=== PATIENT | female | born 1985 | race Caucasian/White ===

== ENCOUNTER 2022-09-17 14:59 | Inpatient (IN) ==
--- NOTE | 2022-09-17 15:31 | Emergency Department Note ---
Impression & Plan Suicidal ideation, Autism, Cerebral palsy, Right sided weakness, S/P [employer] shunt ED Provider Note NAME: STEFFI SANTOS AGE: 36 SEX: F : 1985 ARRIVES VIA: Walk-In INFORMANT: [Patient][parents] ED PROVIDER(S): [Edgar Khalil MD] CHIEF COMPLAINT: Mental health evaluation HISTORY OF PRESENT ILLNESS: The patient is a 36-year-old female who has a history of autism, cerebral palsy, [employer] shunt and seizure. She wears CPAP. She is currently still living with her family and is very frustrated that she cannot get out on her own. She is mad at God because he cannot fix all of her issues. Patient has been taking her medications as prescribed. The patient presents today after being [place] [address]. She had walked out of her house with the intent to lay on the road to commit suicide. She admits to this intent. The patient is currently voluntary. She states that she has felt suicidal from time to time but this is the first episode ever trying to truly go through with self-harm. Recently, the patient decreased her Depakote from 5 tablets daily to 4. She did this to help with dizziness and it does seem to have helped with the dizziness. She recently had lab work at her doctor's office 5 days ago, this was essentially unremarkable. PMHx/PSHx: See Below SOCIAL HISTORY: See Below. PHYSICAL EXAM: GENERAL: Patient is in no acute distress. HEENT: No acute trauma, normocephalic atraumatic, mucous membranes moist, no nasal congestion. NECK: No stridor, no adenopathy, no meningismus, trachea is midline. LUNGS: Clear to auscultation bilaterally, no wheeze, no rhonchi, breath sounds equal. HEART: Without murmurs gallops or rubs, regular rate and rhythm. ABDOMEN: Soft, nontender, bowel sounds positive, no peritonitis. EXTREMITIES: No cyanosis or edema, full range of motion of all the joints without pain or difficulty. The patient does have a brace on her right leg. NEUROLOGIC: Oriented x 3, awake and alert, moves all extremities. SKIN: No rash, no jaundice, no diaphoresis. Psychiatric: Cooperative, currently voluntary, admits to suicidal ideation with a plan to be run over by a car. DIFFERENTIAL DIAGNOSIS: Psychosis, medication noncompliance, suicidality, depression, anxiety, thyroid disorder, electrolyte imbalance, among others. EMERGENCY DEPARTMENT COURSE/PROCEDURES: Prior/Outside records reviewed: Previous ED note. MEDICAL DECISION MAKING: There is no leukocytosis or worrisome anemia. There is a normal platelet count. No renal failure or significant electrolyte abnormality. No worrisome liver enzyme elevation. Urinalysis did not show findings of infection. Aspirin, Tylenol and alcohol levels were undetectable. COVID test returned negative. testing returned negative. Valproic acid level is therapeutic. The patient appeared to be in a euthyroid state. Urine tox shows benzos. The patient presents with suicidal ideation. She is voluntary. She has a plan to lay on the road and be struck by a car. The patient was felt medically clear, she was seen by psychiatry case management. Unfortunately, the patient meets criteria for psychiatric hospitalization but, because of her past history, her CPAP use, her need for care even to shower, she is not appropriate for a psychiatric facility. She has been declined by multiple psychiatric facilities, even our [facility] psychiatric floor. At this point, medical hospitalization was felt warranted with a psychiatric consult. This would be the best way to approach this delicate situation. I did speak with case management, I spoke with the patient and her family. The on-call hospitalist was consulted. DISPOSITION: Patient's presentation and history warrant admission with a psychiatric consult. Past Med/Surg History Medical History Anxiety Cerebral palsy Epilepsy FOCAL SEIZURES WEEKLY>ANXIETY INDUCED (FOLLOWS BY DR. 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 LEVELS Heartburn Hypertension Mood disorder OCD (obsessive compulsive disorder) Right sided weakness Sleep apnea CPAP Surgical History H/O wrist surgery RT (TENDON) History of brain shunt TO TREAT HYDOCECPHALUS>PLACED AT AGE 1 History of cholecystectomy History of esophagogastroduodenoscopy (EGD) History of hip surgery RT/LEFT History of orthopedic surgery RT/LEFT HEEL CORD LENGTHENING CORD [place] teeth removed Family History Other No family history of adverse response to anesthesia Social History Smoking Status: Never smoker Second Hand Exposure: No; Hx Alcohol Use: No Preferred Language: Frisian [employer] D[employer] Required: No Beliefs That Will Affect Care: Spiritism Spiritism Beliefs: CONGREGATION Current Living Situation: Family Current Living Situation Comment: WITH FAMILY Feels Safe at Home: No Gender Identity: Female Assistive Devices: Brace/Splint/Immobilizer and CPAP Allergies Allergies Allergy/AdvReac Type Severity Reaction Status Date / Time No Known Allergies Allergy Verified 05/26/21 08:43 Home Meds Home Medications Medication Instructions Recorded Confirmed lacosamide 100 mg tablet (Vimpat) 200 mg PO TIDM 03/01/18 05/26/21 pyridoxine (vitamin B6) 100 mg 100 mg PO QAM 03/01/18 05/26/21 tablet (Vitamin B-6) risperidone 1 mg tablet 0.5 mg PO QDL 03/01/18 05/26/21 risperidone 1 mg tablet 1 mg PO BID 03/01/18 05/26/21 zonisamide 100 mg capsule 100 mg PO AMHS 03/01/18 05/26/21 (Zonegran) divalproex 250 mg tablet,delayed 250 mg PO UD 04/02/20 05/26/21 release (Depakote) divalproex 500 mg tablet,delayed 500 mg PO QAM 04/02/20 05/26/21 release clobazam 10 mg tablet 5 mg PO QAM 04/03/20 05/26/21 multivitamin 1 tab PO QAM 04/03/20 05/26/21 ascorbic acid 1,000 1 ea PO QAM 05/17/21 05/26/21 ot-[id number] powder effervescent pack (Emergen-C) cetirizine 10 mg tablet (Zyrtec) 5 mg PO QAM 05/17/21 05/26/21 famotidine 20 mg tablet 20 mg PO BID 05/17/21 05/26/21 lisinopril 2.5 mg tablet 2.5 mg PO QAM 05/17/21 05/26/21 lorazepam 0.5 mg tablet 0.5 mg PO DAILY PRN Anxiety 05/17/21 05/26/21 norethindrone acetate 1 mg-ethinyl 1 tab PO QAM 04/05/22 04/14/22 estradiol 20 mcg tablet (Junel) Results & Data (ED) Vital Signs Vital Signs - 24 hr 09/17/22 15:06 Temperature 36.7 C Temperature Source Temporal Artery Scan Pulse Rate 90 Respiratory Rate 18 Respiratory Effort / Characteristics Non-Labored Respiratory Depth Normal Respiratory Pattern Regular Blood Pressure 145/90 H Blood Pressure Mean 108 Blood Pressure Position Sitting Pulse Oximetry 93 Oxygen Delivery Method Room Air Sepsis Recent Fever Within 48 Hours No Sepsis New/Unexplained Change in Mental Status No Sepsis Action Taken by Nursing No Action Required Home Medications Current Medication List: was personally reviewed by me Laboratory Data Attestation: I reviewed the patient's lab results. 09/17/22 15:30 09/17/22 15:30 Lab Results 09/17/22 09/17/22 09/17/22 Range/Units 15:30 15:30 15:30 WBC 4.46 L (4.8-10.8) K/ul RBC 4.21 (4.20-5.40) M/uL Hgb 13.8 (12.0-16.0) g/dl Hct 41.2 (37.0-47.0) % MCV 97.9 (80.0-100.0) fL MCH 32.8 (25.0-34.0) pg MCHC 33.5 (32.0-36.0) g/dL RDW Std Deviation 46.2 (36.4-46.3) fL RDW Coeff of Lulu 12.8 (11.5-14.5) % Plt Count 179 (130-400) K/uL MPV 11.8 (9.4-12.4) fL Immature Gran % (Auto) 0.2 % Neut % (Auto) 46.2 % Lymph % (Auto) 35.7 % Jenkins % (Auto) 17.0 % Eos % (Auto) 0.7 % Baso % (Auto) 0.2 % Neut # (Auto) 2.06 (1.40-6.50) K/uL Lymph # (Auto) 1.59 (1.2-3.4) K/uL Jenkins # (Auto) 0.76 H (0.11-0.59) K/uL Eos # (Auto) 0.03 (0-0.50) K/uL Baso # (Auto) 0.01 (0-0.2) K/uL Immature Gran # (Auto) 0.01 (0.01-0.20) K/uL Sodium 140 (136-145) mmol/L Potassium 3.9 (3.5-5.1) mmol/L Chloride 109 H (98-107) mmol/L Carbon Dioxide 25 (21-32) mmol/L Anion Gap 6 (3-11) BUN 15 (6-23) mg/dl Creatinine 1.02 (0.6-1.2) mg/dl Est Cr Clr Drug Dosing Not Reportable Est GFR ( Amer) 80.8 ml/min Est GFR (Non-Af Amer) 69.7 ml/min BUN/Creatinine Ratio 14.7 (10-20) Glucose 115 H (70-99(Fasting)) mg/dl Calcium 9.2 (8.6-10.3) mg/dl Total Bilirubin 0.2 (0.2-1.0) mg/dl AST 41 H (13-39) U/L ALT 38 (7-52) U/L Alkaline Phosphatase 52 (34-104) U/L Total Protein 7.5 (6.0-8.3) gm/dl Albumin 3.7 (3.4-5.0) gm/dl Globulin 3.8 (2.5-4.0) gm/dl Albumin/Globulin Ratio 1.0 (0.9-2) TSH 2.673 (0.300-4.500) uIu/ml HCG, Qual (Negative) Urine Color Urine Appearance (Clear) Urine pH (4.5-7.5) Ur Specific [place] (1.000-1.030) Urine Protein (Negative) Urine Glucose (UA) (Negative) Urine Ketones (Negative) Urine Blood (Negative) Urine Nitrite (Negative) Urine Bilirubin (Negative) Urine Urobilinogen (Negative) Ur Leukocyte Esterase (Negative) Salicylates (3.0-30) mg/dl Urine Opiates Screen (Neg) Ur Methadone, Qual (Neg) Acetaminophen (10-30) ug/ml Urine Barbiturates (Neg) Valproic Acid (50-100) mcg/ml Ur Phencyclidine (PCP) (Neg) U Amphetamin/Meth Scrn (Neg) MDMA (Ecstasy) Screen (Neg) U Benzodiazepines Scrn (Neg) Ur Cocaine Metabolite (Neg) U Marijuana (THC) Screen (Neg) Ethyl Alcohol mg/dL (<10.0) mg/dl SARS-CoV-2, RNA, NAAT (NEGATIVE) 09/17/22 09/17/22 09/17/22 Range/Units 15:30 15:30 15:30 WBC (4.8-10.8) K/ul RBC (4.20-5.40) M/uL Hgb (12.0-16.0) g/dl Hct (37.0-47.0) % MCV (80.0-100.0) fL MCH (25.0-34.0) pg MCHC (32.0-36.0) g/dL RDW Std Deviation (36.4-46.3) fL RDW Coeff of Lulu (11.5-14.5) % Plt Count (130-400) K/uL MPV (9.4-12.4) fL Immature Gran % (Auto) % Neut % (Auto) % Lymph % (Auto) % Jenkins % (Auto) % Eos % (Auto) % Baso % (Auto) % Neut # (Auto) (1.40-6.50) K/uL Lymph # (Auto) (1.2-3.4) K/uL Jenkins # (Auto) (0.11-0.59) K/uL Eos # (Auto) (0-0.50) K/uL Baso # (Auto) (0-0.2) K/uL Immature Gran # (Auto) (0.01-0.20) K/uL Sodium (136-145) mmol/L Potassium (3.5-5.1) mmol/L Chloride (98-107) mmol/L Carbon Dioxide (21-32) mmol/L Anion Gap (3-11) BUN (6-23) mg/dl Creatinine (0.6-1.2) mg/dl Est Cr Clr Drug Dosing Est GFR ( Amer) ml/min Est GFR (Non-Af Amer) ml/min BUN/Creatinine Ratio (10-20) Glucose (70-99(Fasting)) mg/dl Calcium (8.6-10.3) mg/dl Total Bilirubin (0.2-1.0) mg/dl AST (13-39) U/L ALT (7-52) U/L Alkaline Phosphatase (34-104) U/L Total Protein (6.0-8.3) gm/dl Albumin (3.4-5.0) gm/dl Globulin (2.5-4.0) gm/dl Albumin/Globulin Ratio (0.9-2) TSH (0.300-4.500) uIu/ml HCG, Qual Negative (Negative) Urine Color Urine Appearance (Clear) Urine pH (4.5-7.5) Ur Specific [place] (1.000-1.030) Urine Protein (Negative) Urine Glucose (UA) (Negative) Urine Ketones (Negative) Urine Blood (Negative) Urine Nitrite (Negative) Urine Bilirubin (Negative) Urine Urobilinogen (Negative) Ur Leukocyte Esterase (Negative) Salicylates < 3.0 L (3.0-30) mg/dl Urine Opiates Screen (Neg) Ur Methadone, Qual (Neg) Acetaminophen < 3 L (10-30) ug/ml Urine Barbiturates (Neg) Valproic Acid 80 (50-100) mcg/ml Ur Phencyclidine (PCP) (Neg) U Amphetamin/Meth Scrn (Neg) MDMA (Ecstasy) Screen (Neg) U Benzodiazepines Scrn (Neg) Ur Cocaine Metabolite (Neg) U Marijuana (THC) Screen (Neg) Ethyl Alcohol mg/dL < 10.0 (<10.0) mg/dl SARS-CoV-2, RNA, NAAT (NEGATIVE) 09/17/22 09/17/22 09/17/22 Range/Units 15:30 15:30 15:45 WBC (4.8-10.8) K/ul RBC (4.20-5.40) M/uL Hgb (12.0-16.0) g/dl Hct (37.0-47.0) % MCV (80.0-100.0) fL MCH (25.0-34.0) pg MCHC (32.0-36.0) g/dL RDW Std Deviation (36.4-46.3) fL RDW Coeff of Lulu (11.5-14.5) % Plt Count (130-400) K/uL MPV (9.4-12.4) fL Immature Gran % (Auto) % Neut % (Auto) % Lymph % (Auto) % Jenkins % (Auto) % Eos % (Auto) % Baso % (Auto) % Neut # (Auto) (1.40-6.50) K/uL Lymph # (Auto) (1.2-3.4) K/uL Jenkins # (Auto) (0.11-0.59) K/uL Eos # (Auto) (0-0.50) K/uL Baso # (Auto) (0-0.2) K/uL Immature Gran # (Auto) (0.01-0.20) K/uL Sodium (136-145) mmol/L Potassium (3.5-5.1) mmol/L Chloride (98-107) mmol/L Carbon Dioxide (21-32) mmol/L Anion Gap (3-11) BUN (6-23) mg/dl Creatinine (0.6-1.2) mg/dl Est Cr Clr Drug Dosing Est GFR ( Amer) ml/min Est GFR (Non-Af Amer) ml/min BUN/Creatinine Ratio (10-20) Glucose (70-99(Fasting)) mg/dl Calcium (8.6-10.3) mg/dl Total Bilirubin (0.2-1.0) mg/dl AST (13-39) U/L ALT (7-52) U/L Alkaline Phosphatase (34-104) U/L Total Protein (6.0-8.3) gm/dl Albumin (3.4-5.0) gm/dl Globulin (2.5-4.0) gm/dl Albumin/Globulin Ratio (0.9-2) TSH (0.300-4.500) uIu/ml HCG, Qual (Negative) Urine Color Yellow Urine Appearance Clear (Clear) Urine pH 7.0 (4.5-7.5) Ur Specific [place] 1.005 (1.000-1.030) Urine Protein Negative (Negative) Urine Glucose (UA) Negative (Negative) Urine Ketones Negative (Negative) Urine Blood Negative (Negative) Urine Nitrite Negative (Negative) Urine Bilirubin Negative (Negative) Urine Urobilinogen Negative (Negative) Ur Leukocyte Esterase Negative (Negative) Salicylates (3.0-30) mg/dl Urine Opiates Screen Neg (Neg) Ur Methadone, Qual Neg (Neg) Acetaminophen (10-30) ug/ml Urine Barbiturates Neg (Neg) Valproic Acid (50-100) mcg/ml Ur Phencyclidine (PCP) Neg (Neg) U Amphetamin/Meth Scrn Neg (Neg) MDMA (Ecstasy) Screen Neg (Neg) U Benzodiazepines Scrn Pos H (Neg) Ur Cocaine Metabolite Neg (Neg) U Marijuana (THC) Screen Neg (Neg) Ethyl Alcohol mg/dL (<10.0) mg/dl SARS-CoV-2, RNA, NAAT NEGATIVE (NEGATIVE) Discharge Plan Visit Data Chief Complaint: Mental Health Evaluation Stated Complaint: MENTAL HEALTH EVAL ED Provider: Edgar Khlail Discharge Problem: Suicidal ideation, Autism, Cerebral palsy, Right sided weakness, S/P [employer] shunt Patient Disposition: Admitted As Inpatient Condition: Good Forms Stand Alone Forms: [facility], Suicide Prevention Resources Prescriptions Prescriptions: No Action zonisamide [Zonegran] 100 mg Capsule 100 mg PO AMHS pyridoxine (vitamin B6) [Vitamin B-6] 100 mg Tablet 100 mg PO QAM risperidone 1 mg Tablet 1 mg PO BID risperidone 1 mg Tablet 0.5 mg PO QDL lacosamide [Vimpat] 100 mg Tablet 200 mg PO TIDM divalproex [Depakote] 250 mg tablet,delayed release (DR/EC) 250 mg PO UD Rx Instructions: take 250mg at noon and bedtime divalproex 500 mg tablet,delayed release (DR/EC) 500 mg PO QAM clobazam 10 mg tablet 5 mg PO QAM multivitamin Tablet 1 tab PO QAM cetirizine [Zyrtec] 10 mg Tablet 5 mg PO QAM famotidine 20 mg Tablet 20 mg PO BID lorazepam 0.5 mg Tablet 0.5 mg PO DAILY PRN (Reason: Anxiety) norethindrone ac-eth estradiol [03/03 (21)] 1-20 mg-mcg Tablet 1 tab PO QAM lisinopril 2.5 mg Tablet 2.5 mg PO QAM Emergen-C 1,000 mg Powder Effervescent In Packet 1 ea PO QAM Referrals Referrals: Candice Rasmussen DO [Primary Care Provider] - Cerebral palsy Qualifiers: Cerebral palsy type: unspecified type Qualified Code(s): G80.9 - Cerebral palsy, unspecified
[2022-09-17 15:57] LABS: Appearance Urine Clear (Clear); Basophils # (auto) 0.01 K/uL (0-0.2); Basophils % (auto) 0.2 %; Bilirubin Urine Negative (Negative); Blood Urine Negative (Negative); Color Urine Yellow; Eosinophils # (auto) 0.03 K/uL (0-0.50); Eosinophils % (auto) 0.7 %; Glucose Urine UA Negative (Negative); Hematocrit (blood only) 41.2 % (37.0-47.0); Hemoglobin 13.8 g/dl (12.0-16.0); Immature Granulocytes # (auto) 0.01 K/uL (0.01-0.20); Immature Granulocytes % (auto) 0.2 %; Ketones Urine Negative (Negative); Leukocyte Esterase Urine Negative (Negative); Lymphocytes # (auto) 1.59 K/uL (1.2-3.4); Lymphocytes % (auto) 35.7 %; Mean Corpuscular Hemoglobin 32.8 pg (25.0-34.0); Mean Corpuscular Hgb Conc 33.5 g/dL (32.0-36.0); Mean Corpuscular Volume 97.9 fL (80.0-100.0); Mean Platelet Volume 11.8 fL (9.4-12.4); Monocytes # (auto) 0.76 K/uL (0.11-0.59); Neutrophils # (auto) 2.06 K/uL (1.40-6.50); Neutrophils % (auto) 46.2 %; Nitrite Urine Negative (Negative); Platelet Count 179 K/uL (130-400); Protein Urine Negative (Negative); RDW Coefficient of Variation 12.8 % (11.5-14.5); RDW Standard Deviation 46.2 fL (36.4-46.3); Red Blood Count 4.21 M/uL (4.20-5.40); Specific Gravity Urine 1.005 (1.000-1.030); Urobilinogen Urine Negative (Negative); White Blood Count 4.46 K/ul (4.8-10.8)
[2022-09-17 16:12] LABS: Acetaminophen < 3 ug/ml (10-30); Salicylate < 3.0 mg/dl (3.0-30)
[2022-09-17 16:16] LABS: Alanine Aminotransferase 38 U/L (7-52); Albumin Level 3.7 gm/dl (3.4-5.0); Alkaline Phosphatase 52 U/L (34-104); Anion Gap 6 (3-11); Aspartate Aminotransferase 41 U/L (13-39); BUN Creatinine Ratio 14.7 (10-20); Bilirubin,Total 0.2 mg/dl (0.2-1.0); Blood Urea Nitrogen 15 mg/dl (6-23); Calcium 9.2 mg/dl (8.6-10.3); Carbon Dioxide 25 mmol/L (21-32); Chloride 109 mmol/L (98-107); Est GFR (African American) 80.8 ml/min; Est GFR (Non-African American) 69.7 ml/min; Globulin 3.8 gm/dl (2.5-4.0); Glucose 115 mg/dl (70-99(Fasting)); Potassium 3.9 mmol/L (3.5-5.1); Sodium 140 mmol/L (136-145); Total Protein 7.5 gm/dl (6.0-8.3)
[2022-09-17 16:18] LABS: Pregnancy Test, Serum Negative (Negative)
[2022-09-17 16:21] LABS: Valproic Acid 80 mcg/ml (50-100)
[2022-09-17 17:09] LABS: Amphetamines+Metham, Urine Neg (Neg); Barbiturates, Urine Neg (Neg); Benzodiazepine, Urine Pos (Neg); Cocaine, Urine Neg (Neg); MDMA (Ecstacy), Urine Neg (Neg); Methadone, Urine Neg (Neg); Opiate, Urine Neg (Neg); Phencyclidine, Urine Neg (Neg)
--- NOTE | 2022-09-17 17:44 | History & Physical Report ---
Date of Service September 17, 2022 Assessment & Plan (1) Suicidal ideation: (2) Cerebral palsy: (3) Autism: (4) Mood disorder: (5) OCD (obsessive compulsive disorder): (6) Epilepsy: Plan This is a 36-year-old female who has a significant past medical history of spastic quadriplegic cerebral palsy, epilepsy, hydrocephalus with DOG BEAUTICIAN shunt presents, partial idiopathic focal epilepsy, mood disorder, depression, OCD, history of prolonged QT hyperprolactinemia who presents to ED secondary to suicidal ideation/attempt. Suicidal ideation -patient walked out to room 45 in an attempt to get run over by a car Mood disorder Depression with anxiety OCD Patient unable to be admitted to psychiatric facility due to underlying comorbidities therefore will admit to medicine Consult psychiatric services Patient follows Suzanne Johnson as OP, family requesting psych coordination of care with Dr. 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 Peoples, please see addendum History of Present Illness Chief Complaint: Suicidal ideation Primary Care Provider: Candice Rasmussen, This is a 36-year-old female who has a significant past medical history of spastic quadriplegic cerebral palsy, epilepsy, hydrocephalus with DOG BEAUTICIAN shunt presents, partial idiopathic focal epilepsy, mood disorder, depression, OCD, history of prolonged QT hyperprolactinemia who presents to ED secondary to suicidal ideation/attempt. Patient currently resides with her parents. Both parents are at bedside. In setting of mood disorder patient does have periods of tomasz and then periods of depression. She has never once attempted suicide, but has had sporadic dialogue regarding being suicidal. She follows with Dr. Sabrina Johnson of psychiatry through [facility]. Patient had a good night last night and a good morning. There was no signs of any depression or suicidal ideation. Father went to play golf and mother was sitting on the couch watching zoroastrian when patient decided to walk out the back door and [place] [address] Thankfully 2 ladies thought the situation was odd and brought her back to her house. Her mom realized that she was gone when the ladies brought her to the front door. Her intent was to go out on to [address], lay down and get run over by a car. She has never made an attempt like this before. Currently she does not feel like hurting herself or others at this time. She states that she wanted to end her life and have a, "God deal with all of her problems." She easily becomes very frustrated given her physical and mental challenges. She also is frustrated that she is unable to live independently. In ED patient remained hemodynamically stable. CBC, CMP, TSH a nd urinalysis was obtained. All was unremarkable except mild elevated glucose of 115 and AST of 41. Urine drug screen was positive for benzodiazepines. Due to patient's medical comorbidities she was deemed not a candidate for inpatient psych and therefore needed to be admitted to medical floor due to nursing needs. Allergies Allergy/AdvReac Type Severity Reaction Status Date / Time No Known Allergies Allergy Verified 05/26/21 08:43 Home Medications Medication Instructions Recorded Confirmed Type lacosamide 100 mg tablet (Vimpat) 200 mg PO AMHS 03/01/18 09/17/22 History risperidone 1 mg tablet 1 mg PO BID 03/01/18 09/17/22 History zonisamide 100 mg capsule 100 mg PO AMHS 03/01/18 09/17/22 History (Zonegran) divalproex 250 mg tablet,delayed 250 mg PO UD 04/02/20 09/17/22 History release (Depakote) divalproex 500 mg tablet,delayed 500 mg PO QAM 04/02/20 09/17/22 History release clobazam 10 mg tablet 5 mg PO BID 04/03/20 09/17/22 History multivitamin 1 tab PO QAM 04/03/20 09/17/22 History ascorbic acid 1,000 1 ea PO QAM 05/17/21 09/17/22 History kq-gwuyrgglpdam-fkpkowxc powder effervescent pack (Emergen-C) cetirizine 10 mg tablet (Zyrtec) 5 mg PO QAM PRN allergies 05/17/21 09/17/22 History famotidine 20 mg tablet 20 mg PO BID 05/17/21 09/17/22 History lorazepam 0.5 mg tablet 0.5 mg PO DAILY PRN Anxiety 05/17/21 09/17/22 History norethindrone acetate 1 mg-ethinyl 1 tab PO QAM 05/17/21 09/17/22 History estradiol 20 mcg tablet (Junel) clonazepam 0.5 mg tablet 0.5 mg PO BID 09/17/22 09/17/22 History duloxetine 60 mg capsule,delayed 60 mg PO DAILY 09/17/22 09/17/22 History release omeprazole 40 mg capsule,delayed 40 mg PO HS 09/17/22 09/17/22 History release Past Med/Surg History Medical History (Updated 09/17/22 @ 18:39 by Megan Busby PA-C) Anxiety Cerebral palsy Epilepsy FOCAL SEIZURES WEEKLY>ANXIETY INDUCED (FOLLOWS BY DR. GENEVIEVE RAMIREZ AT [facility]) Fusion of spine TO TREAT SCOLOSIS *DONE AT AGE 10 ? LEVELS Heartburn Hypertension Mood disorder OCD (obsessive compulsive disorder) Right sided weakness Sleep apnea CPAP Surgical History H/O wrist surgery RT (TENDON) History of brain shunt TO TREAT HYDOCECPHALUS>PLACED AT AGE 1 History of cholecystectomy History of esophagogastroduodenoscopy (EGD) History of hip surgery RT/LEFT History of orthopedic surgery RT/LEFT HEEL CORD LENGTHENING CORD [place] teeth removed Family History Other No family history of adverse response to anesthesia Social History Smoking Status: Never smoker Second Hand Exposure: No; Hx Alcohol Use: No Hx Substance Use: No Preferred Language: Swedish 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 Obstetrics Required: No Beliefs That Will Affect Care: None Current Living Situation: Parent Current Living Situation Comment: WITH FAMILY Feels Safe at Home: No Safety Concerns: Feels Safe At This Time Gender Identity: Female Assistive Devices: CPAP Review of Systems Review of Systems: All systems reviewed & are unremarkable except as noted in HPI & below Physical Exam Physical Exam: Constitutional: WD/WN, vitals as above, NAD, sitting up in bedside chair, rocking in chair, lip tremor, pleasant, conversing easily with occasional stutter Head: Normocephalic, Atraumatic Eyes: PERRL, conjunctivae normal, anicteric sclerae ENMT: external ear and nose normal, oropharynx normal Neck: trachea midline, no thyromegaly normal visual inspection Respiratory: normal respiratory effort, lungs clear to auscultation, no wheeze, rales, rhonchi. Normal insp/exp effort, no accessory muscle use Cardiovascular: RRR, no murmur, no edema Vessels: no JVD or carotid bruit Chest: normal inspection of chest Abdomen: normal bowel sounds, soft, nontender, no hepatosplenomegaly Musculoskeletal: no cyanosis or clubbing, active range of motion x4, ankle splint to right lower extremity Skin: no rashes, warm and dry normal turgor Neurologic: PERRL, EOMI, accommodation nl, no face palsy, no dysarthria CN's II-XI intact bilaterally and moves all extremities Psychiatric: A+Ox3, euthymic affect Lymphatic: no cervical or axillary lymphadenopathy : deferred Results & Data Results & Data Vital Signs (Past 12 Hours) Vital Signs Temp Pulse Resp BP Pulse Ox O2 Del Method 09/17/22 15:06 36.7 C 90 18 145/90 H 93 Room Air COVID-19 Results Results COVID-19 Adm Lab Results: RBC 4.21 M/uL (4.20-5.40) 09/17/22 WBC 4.46 K/ul (4.8-10.8) L 09/17/22 Hgb 13.8 g/dl (12.0-16.0) 09/17/22 Hct 41.2 % (37.0-47.0) 09/17/22 Plt Count 179 K/uL (130-400) 09/17/22 Neutrophils (%) (Auto) 46.2 % 09/17/22 Lymphocytes (%) (Auto) 35.7 % 09/17/22 Monocytes # (Auto) 0.76 K/uL (0.11-0.59) H 09/17/22 Eosinophils # (Auto) 0.03 K/uL (0-0.50) 09/17/22 Immature Granulocyte % (Auto) 0.2 % 09/17/22 Neutrophils # (Auto) 2.06 K/uL (1.40-6.50) 09/17/22 Lymphocytes # (Auto) 1.59 K/uL (1.2-3.4) 09/17/22 Monocytes # (Auto) 0.76 K/uL (0.11-0.59) H 09/17/22 Eosinophils # (Auto) 0.03 K/uL (0-0.50) 09/17/22 Basophils # (Auto) 0.01 K/uL (0-0.2) 09/17/22 Immature Granulocyte # (Auto) 0.01 K/uL (0.01-0.20) 3 Na 140 mmol/L (136-145) 09/17/22 K 3.9 mmol/L (3.5-5.1) 09/17/22 Cl 109 mmol/L (98-107) H 09/17/22 CO2 25 mmol/L (21-32) 09/17/22 Anion Gap 6 (3-11) 09/17/22 BUN 15 mg/dl (6-23) 09/17/22 Creatinine 1.02 mg/dl (0.6-1.2) 09/17/22 BUN/Creatinine Ratio 14.7 (10-20) 09/17/22 Glucose Level 115 mg/dl (70-99(Fasting)) H 09/17/22 Ca 9.2 mg/dl (8.6-10.3) 09/17/22 Total Bilirubin 0.2 mg/dl (0.2-1.0) 09/17/22 AST/SGOT 41 U/L (13-39) H 09/17/22 ALT/SGPT 38 U/L (7-52) 09/17/22 Alkaline Phosphatase 52 U/L (34-104) 09/17/22 Total Protein 7.5 gm/dl (6.0-8.3) 09/17/22 Albumin 3.7 gm/dl (3.4-5.0) 09/17/22 Globulin 3.8 gm/dl (2.5-4.0) 09/17/22 Albumin/Globulin Ratio 1.0 (0.9-2) 09/17/22 SARS-CoV-2, RNA, NAAT NEGATIVE (NEGATIVE) 09/17/22 Code Status & VTE Plan Code Status Full code Supervising Physician Co-Signing Physician Notes Pt seen and examined by myself, Marilu Peoples MD on the day of service. Care was coordinated with Megan Busby PA-C. Please refer to her note for additional information. 36yoF who is actively suicidal, admitted to the medical floor due to stable medical comorbidities noted above. Psychiatry following. Otherwise as above. (2) Cerebral palsy Cerebral palsy type: unspecified type Qualified Code(s): G80.9 - Cerebral palsy, unspecified
[2022-09-17] MEDS ORDERED: ACETAMINOPHEN 325 MG TAB PO PRN (20:19)
[2022-09-17] MEDS ORDERED: ONDANSETRON INJ 2 MG/ML 2 ML VIAL IV PRN (20:19)
[2022-09-17] MEDS ORDERED: LORazepam 0.5 MG TAB PO PRN (21:43)
[2022-09-17] MEDS ORDERED: hydrALAZINE HCL 20 MG/ML VIAL IV ONE (21:45)
[2022-09-17] MEDS ORDERED: cloNIDine HCL 0.1 MG TAB PO ONE (21:46)
[2022-09-17] MEDS: ENOXAPARIN INJ 40 MG/0.4 ML SYR SQ SCH (22:07)
[2022-09-17] MEDS: DIVALPROEX DELAY RELEASE 250 MG TABEC PO SCH (22:07)
[2022-09-17] MEDS: FAMOTIDINE 20 MG TAB PO SCH (22:09)
[2022-09-17] MEDS: ZONISAMIDE 100 MG CAPSULE PO SCH (22:09)
[2022-09-17] MEDS: risperiDONE 1 MG TABLET PO SCH (22:09)
[2022-09-17] MEDS: PANTOprazole 40 MG TAB PO SCH (22:09)
[2022-09-17] MEDS: LACOSAMIDE 50 MG TABLET PO SCH (22:30)
[2022-09-17] MEDS: clonazePAM 0.5 MG TAB PO SCH (22:30)
[2022-09-18 06:29] LABS: Hematocrit (blood only) 38.7 % (37.0-47.0); Hemoglobin 13.1 g/dl (12.0-16.0); Mean Corpuscular Hemoglobin 33.2 pg (25.0-34.0); Mean Corpuscular Hgb Conc 33.9 g/dL (32.0-36.0); Mean Platelet Volume 11.7 fL (9.4-12.4); Platelet Count 160 K/uL (130-400); RDW Coefficient of Variation 13.1 % (11.5-14.5); Red Blood Count 3.95 M/uL (4.20-5.40); White Blood Count 5.19 K/ul (4.8-10.8)
[2022-09-18 06:51] LABS: Albumin Level 3.4 gm/dl (3.4-5.0); BUN Creatinine Ratio 17.8 (10-20); Bilirubin,Total 0.3 mg/dl (0.2-1.0); Creatinine Clr Calc Pharmacy 82.8 ml/min; Est GFR (Non-African American) 81.1 ml/min; Globulin 3.4 gm/dl (2.5-4.0); Magnesium 2.1 mg/dl (1.7-2.4); Potassium 4.2 mmol/L (3.5-5.1); Total Protein 6.8 gm/dl (6.0-8.3)
[2022-09-18 08:06] LABS: Estimated Average Glucose 105 mg/dl; Hemoglobin A1C 5.3 % (4.5-5.6)
[2022-09-18] MEDS: risperiDONE 1 MG TABLET PO SCH ×2 (08:33→20:27)
[2022-09-18] MEDS: MULTIVITAMIN TAB PO SCH (08:33)
[2022-09-18] MEDS: DIVALPROEX DELAY RELEASE 500 MG TAB PO SCH (08:33)
[2022-09-18] MEDS: FAMOTIDINE 20 MG TAB PO SCH ×2 (08:33→20:28)
[2022-09-18] MEDS: DULoxetine HCL 60 MG CAP PO SCH (08:34)
[2022-09-18] MEDS: ZONISAMIDE 100 MG CAPSULE PO SCH ×2 (09:13→20:28)
[2022-09-18] MEDS: clonazePAM 0.5 MG TAB PO SCH ×2 (09:13→20:27)
[2022-09-18] MEDS: LACOSAMIDE 50 MG TABLET PO SCH ×2 (09:13→20:28)
[2022-09-18] MEDS ORDERED: POLYETHYLENE (MIRALAX) 17 GM PACK PO PRN (11:37)
--- NOTE | 2022-09-18 12:22 | Psychiatric Consultation ---
Date of Consultation September 18, 2022 Impression / Recommendations Impression Diagnostically consistent with likely depressive episode with increased irritability in context of BPAD, ASD with intellectual disability, and OCD. With exception of one odd belief about genie controlling her epilepsy no other symptoms of psychosis, suggests depressive episode in context of BPAD with added concrete and impulsive nature of emergence of SI likely from ASD. Her interrupted suicide attempt is concerning in that she gave no indication to her parents or other supports of her plan to leave the home to act on her thoughts and reports that her SI and plan came on quite impulsively. She continues to have some ambivalence about being alive which further emphasizes the importance of ongoing hospitalization for safety and stabilization as well as options for medication adjustments, possible additional outpatient resources and working to identify any additional contributing risk factors/modifiable risk factors. Ongoing challenge with lack of more intensive outpatient supports and housing resources remains significant contributing factor that will difficult to modify. She is certainly on a wide variety of both neurologic and psychiatric medications that can contribute to sedation with neurologic medications of Onfi and Klonopin likely to cause the most sedation. Her depakote was recently reduced slightly due to dizziness which may have lead to some increased irritability/mood changes. She is also on Cymbalta and risperidone. Discussed her history of prior medication trials and presentation over time with her outpatient psychiatrist Dr. Johnson for [address] Dr. Johnson recalls three prior trials to taper risperidone without success due to increased agitation/aggression or worsened mood changes as well as prior challenges with attempt to consolidate more of the dose in the evening. She has been on multiple other medications including [place] and Seroquel without success. Per Dr. Johnson discussion with her neurologist the recent EEG video monitoring did not show any epileptic events with Randi's sense of aura/mood changes suggesting likely component of anxiety and that they felt her epilepsy is currently well controlled but they did add Onfi and Klonopin in effort to reduce anxiety leading to distress and sense of possible seizures. (1) Depression with suicidal ideation: (2) Autism: (3) Cerebral palsy: Cerebral palsy type: unspecified type Qualified Code(s): G80.9 - Cerebral palsy, unspecified (4) S/P PRESIDING STEWARD shunt: (5) Epilepsy: (6) OCD (obsessive compulsive disorder): (7) Mood disorder: (8) Suicidal ideation: Plan -1-on-1 with suicide precautions -May not leave AMA, if attempt please call security and psych liason as would meet 302 criteria -Continue psychiatric medications as ordered for now, consider increasing Cymbalta beyond FDA max and/or adjusting Depakote -Discussed with family setting alarm system on doors/windows which they report is in place and will now be active 04/09 to reduce risk of Randi leaving the home without warning in the future -Could consider pastoral care consult, will discuss with her parents if they feel this could be beneficial vs worsening shinto preoccupation/feelings of being punished Psych History Identifying Data Olivia Galindo" is a 36 yo woman who lives with her parents in [place] with a history of bipolar affective disorder, OCD, ASD with intellectual disability, CP, focal epilepsy, history of hydrocephalus s/p PRESIDING STEWARD shunt, SHRUTHI on CPAP admitted medically for interrupted suicide attempt given medical/nursing complex needs. Psychiatry consulted for risk assessment and recommendations. Chief Complaint "I still don't want to be here". History of Present Illness Randi presented with her parents after impulsively walking out of her house yesterday in an attempt to get to the local highway [facility] where she planned to lie down in traffic in order to be hit and killed by a car. Luckily as she approached the [facility] a nearby logging truck driver felt something seemed off and intervened by stopping her before she got to the road and bringing her home. She left the house without altering her mother who was home and both Randi and her parents report none of them even realized she would be able to ambulate independently as far as she did given her CP and physical pain limitations. Today Randi is tired and drifts off to sleep intermittently but is cooperative with questions. She is joined bedside by her parents who are very involved in her care, have medical guardianship and whom she gives permission to be involved and get updates on her treatment/care. Randi reports the SI came on impulsively after she woke yesterday. Reports significant frustration that she always sleeps in and struggles to get up in the mornings which she attributes to her sedating medications. On waking she thought about possibly "picking myself open till I bled" but then ate breakfast and after eating continued to feel tired and "frustrated by this". She then had the idea to go outside and attempt to lie in traffic and left the house unnoticed still in her pajamas. Her parents are able to provide additional collateral including that they had a difficult meeting on regarding an update on possible outpatient support services which could eventually allow Randi to live independently in a nearby home with trained staff support. Unfortunately the meeting revealed long wait lists and discouraging news given Randi's hopes to have more independence. She frequently notes frustration with God and the government as she feels God could change her situation but doesn't and due to lack of financial funding/[facility] support services and resources. They note she also often gets to weekly groups and other activities late due to her fatigue and difficulty waking up in the morning. Randi adds that additional recent stressors are her frustration with her risperidone, which she feels causes the most sedation, and hopelessness that this medication will ever be able to discontinued. She also reports frustration with anxiety triggering seizures and states belief that a "genie causes the epilepsy". She recently had video EEG monitoring at [facility] for her seizures and some of her medications were adjusted. She follows in the outpatient setting with Dr. Johnson for psychiatry and also has a therapist through the [facility] psychology clinic who has been doing in home visits. She also has a case monitor through [facility]. [facility] is involved with [facility]. Past Psychiatric History History of Previous Suicide Attempt: No Allergies Allergy/AdvReac Type Severity Reaction Status Date / Time No Known Allergies Allergy Verified 05/26/21 08:43 Home Medications Medication Instructions Recorded Confirmed Type lacosamide 100 mg tablet (Vimpat) 200 mg PO AMHS 03/01/18 09/17/22 History risperidone 1 mg tablet 1 mg PO BID 03/01/18 09/17/22 History zonisamide 100 mg capsule 100 mg PO AMHS 03/01/18 09/17/22 History (Zonegran) divalproex 250 mg tablet,delayed 250 mg PO UD 04/02/20 09/17/22 History release (Depakote) divalproex 500 mg tablet,delayed 500 mg PO QAM 04/02/20 09/17/22 History release clobazam 10 mg tablet 5 mg PO BID 04/03/20 09/17/22 History multivitamin 1 tab PO QAM 04/03/20 09/17/22 History ascorbic acid 1,000 1 ea PO QAM 05/17/21 09/17/22 History hv-znessiyeronn-booikrym powder effervescent pack (Emergen-C) cetirizine 10 mg tablet (Zyrtec) 5 mg PO QAM PRN allergies 05/17/21 09/17/22 History famotidine 20 mg tablet 20 mg PO BID 05/17/21 09/17/22 History lorazepam 0.5 mg tablet 0.5 mg PO DAILY PRN Anxiety 05/17/21 09/17/22 History norethindrone acetate 1 mg-ethinyl 1 tab PO QAM 05/17/21 09/17/22 History estradiol 20 mcg tablet (Junel) clonazepam 0.5 mg tablet 0.5 mg PO BID 09/17/22 09/17/22 History duloxetine 60 mg capsule,delayed 60 mg PO DAILY 09/17/22 09/17/22 History release omeprazole 40 mg capsule,delayed 40 mg PO HS 09/17/22 09/17/22 History release Patient History Medical History Anxiety Cerebral palsy Epilepsy FOCAL SEIZURES WEEKLY>ANXIETY INDUCED (FOLLOWS BY DR. GENEVIEVE RAMIREZ AT [facility]) Fusion of spine TO TREAT SCOLOSIS *DONE AT AGE 10 ? LEVELS Heartburn Hypertension Mood disorder OCD (obsessive compulsive disorder) Right sided weakness Sleep apnea CPAP Surgical History H/O wrist surgery RT (TENDON) History of brain shunt TO TREAT HYDOCECPHALUS>PLACED AT AGE 1 History of cholecystectomy History of esophagogastroduodenoscopy (EGD) History of hip surgery RT/LEFT History of orthopedic surgery RT/LEFT HEEL CORD LENGTHENING CORD [place] teeth removed Family History Other No family history of adverse response to anesthesia Social History Smoking Status: Never smoker Second Hand Exposure: No; Hx Alcohol Use: No Hx Substance Use: No Preferred Language: Estonian Communication Ability: Effective Air Turning Machine Feeder Required: No Beliefs That Will Affect Care: None Current Living Situation: Parent Current Living Situation Comment: WITH FAMILY Feels Safe at Home: No Safety Concerns: Feels Safe At This Time Gender Identity: Female Assistive Devices: CPAP Physical Exam Psychiatric: Orientation: alert, oriented to person and oriented to place Apperance: appropriately dressed and appropriately groomed Eye Contact: + fair eye contact Motor Behavior: no abnormal motor movements Speech: normal rate/rhythm/volume of speech Affect: + constricted affect Mood: + depressed mood, + anxious mood and + irritable mood Thought Process: linear/logical thought process and + concrete thought process Thought Content: + preoccupation and + derealization (possible regarding belief of genie controlling epilepsy) Suicidal Thoughts: denies suicidal plan; + reports suicidal thoughts Homicidal Thoughts: denies homicidal thoughts Hallucinations: no auditory hallucinations and no visual hallucinations Cognition: recent memory grossly intact, remote memory grossly intact and attention grossly intact Insight: + limited insight Judgment: + limited judgement Vital Signs (Past 24 Hours): Last Vital Signs Temp 36.9 C 09/18/22 11:00 Pulse 69 09/18/22 11:00 Resp 18 09/18/22 11:00 BP 136/87 09/18/22 11:00 Pulse Ox 99 09/18/22 11:00 O2 Del Method CPAP 09/18/22 11:00 Review of Systems All systems reviewed & are unremarkable except as noted in HPI & below Results & Data (PSY) Laboratory Results Na+ 142 Depakote level 80 (not true trough) Medications Administered Clonazepam (Clonazepam 0.5 Mg Tab) 0.5 mg PO BID [facility] Stop: 10/17/22 21:44 Last Admin: 09/18/22 09:13 Dose: 0.5 mg Documented By: Admin: 09/17/22 22:30 Dose: 0.5 mg Documented By: KARLA Divalproex Sodium (Divalproex Delay Release 250 Mg Tabec) 250 mg PO BID@1200,2100 FAHEEM Stop: 10/17/22 21:44 Last Admin: 09/17/22 22:07 Dose: 250 mg Documented By: ASTRID Divalproex Sodium (Divalproex Delay Release 500 Mg Tab) 500 mg PO QAM FAHEEM Stop: 10/18/22 08:59 Last Admin: 09/18/22 08:33 Dose: 500 mg Documented By: SAROJ Duloxetine HCl (Duloxetine Hcl 60 Mg Cap) 60 mg PO DAILY FAHEEM Stop: 10/18/22 08:59 Last Admin: 09/18/22 08:34 Dose: 60 mg Documented By: SAROJ Enoxaparin Sodium (Enoxaparin Inj 40 Mg/0.4 Ml Syr) 40 mg SQ [facility] Stop: 10/17/22 20:59 Last Admin: 09/17/22 22:07 Dose: Not Given Documented By: ASTRID Famotidine (Famotidine 20 Mg Tab) 20 mg PO BID [facility] Stop: 10/17/22 21:44 Last Admin: 09/18/22 08:33 Dose: 20 mg Documented By: Admin: 09/17/22 22:09 Dose: 20 mg Documented By: ASTRID Lacosamide (Lacosamide 50 Mg Tablet) 200 mg PO [facility] Stop: 10/17/22 21:44 Last Admin: 09/18/22 09:13 Dose: 200 mg Documented By: Admin: 09/17/22 22:30 Dose: 200 mg Documented By: KARLA Multivitamins (Multivitamin Tab) 1 tab PO [facility] Stop: 10/18/22 08:59 Last Admin: 09/18/22 08:33 Dose: 1 tab Documented By: SAROJ Pantoprazole Sodium (Pantoprazole 40 Mg Tab) 40 mg PO [facility] Stop: 10/17/22 21:44 Last Admin: 09/17/22 22:09 Dose: 40 mg Documented By: ASTRID Risperidone (Risperidone 1 Mg Tablet) 1 mg PO BID [facility] Stop: 10/17/22 21:44 Last Admin: 09/18/22 08:33 Dose: 1 mg Documented By: Admin: 09/17/22 22:09 Dose: 1 mg Documented By: ASTRID Zonisamide (Zonisamide 100 Mg Capsule) 100 mg PO [facility] Stop: 10/17/22 21:44 Last Admin: 09/18/22 09:13 Dose: 100 mg Documented By: Admin: 09/17/22 22:09 Dose: 100 mg Documented By: ASTRID Coding Level of Care Code 64383 IN/OBS CONSULT LVL 5,80M Diagnoses Depression with suicidal ideation F32.A; R45.851 Autism F84.0 Cerebral palsy G80.9 Cerebral palsy type: unspecified type S/P PRESIDING STEWARD shunt Z98.2 Epilepsy G40.909 OCD (obsessive compulsive disorder) F42.9 Mood disorder F39 Suicidal ideation R45.851 Time Spent (min) 90
[2022-09-18] MEDS: DIVALPROEX DELAY RELEASE 250 MG TABEC PO SCH ×2 (13:01→20:27)
[2022-09-18] MEDS: PSYLLIUM or GUAR GUM FIBER POWDER PACKET PO SCH (13:01)
[2022-09-18] MEDS: CLOBAZAM 5 MG PO SCH ×2 (13:02→20:28)
--- NOTE | 2022-09-18 13:40 | Hospitalist Progress Note ---
Date of Service September 18, 2022 Assessment & Plan (1) Suicidal ideation: (2) Cerebral palsy: (3) Autism: (4) Mood disorder: (5) OCD (obsessive compulsive disorder): (6) Epilepsy: Plan Patient is a 36 yr female with H/O spastic quadriplegic cerebral palsy, epilepsy, hydrocephalus with ARTIFICIAL MARBLE WORKER shunt presents, partial idiopathic focal epilepsy, mood disorder, depression, OCD, history of prolonged QT hyperprolactinemia who presents to ED secondary to suicidal ideation/attempt. 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 Continue Depakote, Vimpat, clobazam, Zonegran Follows Salbador Villanueva, underwent continuous EEG monitoring in June for 6 days chronic, stable No recent seizur H/O Hydrocephalus S/P ARTIFICIAL MARBLE WORKER shunt SHRUTHI Continue CPAP at bedtime DVT Px: Lovenox SQ Code Status FULL CODE Admission and Anticipated Discharge Date Admission Date: September 17, 2022 Subjective Patient is seen and examined at bedside Admits to being depressed Sitter at bedside Denies any chest pain, dyspnea, dizziness, nausea, vomiting, abdominal pain Having lunch during my encounter No other complaints Review of Systems Review of Systems: All systems reviewed & are unremarkable except as noted in Subjective Physical Exam Physical Exam: Physical Exam: Vitals signs as noted above General Appearance:Moderately built and nourished, no apparent distress Head: normocephalic, Atraumatic Eyes: normal inspection, EOMI Neck: supple, Trachea midline Respiratory/Chest: Normal breath sounds, CTA, No accessory muscle use Cardiovascular: S1, S2, No murmur Abdomen/GI:Soft, Non tender, Bowel sounds present Extremities/Musculoskeletal:normal inspection, Trace edema Neurologic/Psych:AAOX3, grossly no focal neurological deficits, +Depression Skin: normal color, warm Results & Data Results & Data Vital Signs (Past 12 Hours) Vital Signs Temp Pulse Resp BP Pulse Ox O2 Del Method 09/18/22 11:00 36.9 C 69 18 136/87 99 CPAP 09/18/22 06:54 36.7 C 62 15 140/92 100 Room Air Laboratory Results Short CBC 09/17/22 09/18/22 Range/Units 15:30 06:11 WBC 4.46 L 5.19 (4.8-10.8) K/ul Hgb 13.8 13.1 (12.0-16.0) g/dl Hct 41.2 38.7 (37.0-47.0) % Plt Count 179 160 (130-400) K/uL BMP 09/17/22 09/18/22 15:30 06:11 Sodium 140 142 Potassium 3.9 4.2 Chloride 109 H 112 H Carbon Dioxide 25 26 BUN 15 16 Creatinine 1.02 0.90 Glucose 115 H 80 Calcium 9.2 9.0 Liver Function 09/17/22 09/18/22 Range/Units 15:30 06:11 Total Bilirubin 0.2 0.3 (0.2-1.0) mg/dl AST 41 H 34 (13-39) U/L ALT 38 33 (7-52) U/L Alkaline Phosphatase 52 44 (34-104) U/L Albumin 3.7 3.4 (3.4-5.0) gm/dl Urine 09/17/22 Range/Units 15:30 Urine Color Yellow Urine Appearance Clear (Clear) Urine pH 7.0 (4.5-7.5) Ur Specific Oakley 1.005 (1.000-1.030) Urine Protein Negative (Negative) Urine Glucose (UA) Negative (Negative) (2) Cerebral palsy Cerebral palsy type: unspecified type Qualified Code(s): G80.9 - Cerebral palsy, unspecified
[2022-09-18 20:22] LABS: Adenovirus F 40/41 PCR Not Detected (NotDetected); Astrovirus PCR Not Detected (NotDetected); Campylobacter PCR Not Detected (NotDetected); Cryptosporidium PCR Not Detected (NotDetected); Cyclospora cayetanensis PCR Not Detected (NotDetected); Entamoeba histolytica PCR Not Detected (NotDetected); Enteroaggregative E.coli(EAEC) Not Detected (NotDetected); Enteropathogenic E.coli (EPEC) Not Detected (NotDetected); Enterotoxigenic E.coli (ETEC) Not Detected (NotDetected); Giardia lamblia PCR Not Detected (NotDetected); Norovirus GI/GII PCR Not Detected (NotDetected); Plesiomonas shigelloides PCR Not Detected (NotDetected); Rotavirus A PCR Not Detected (NotDetected); Salmonella PCR Not Detected (NotDetected); Sapovirus PCR Not Detected (NotDetected); Shiga-like Toxin E.coli (STEC) Not Detected (NotDetected); Shigella/Enteroinvasive E.coli Not Detected (NotDetected); Vibrio cholerae PCR Not Detected (NotDetected); Vibrio species PCR Not Detected (NotDetected); Yersinia enterocolitica PCR Not Detected (NotDetected)
[2022-09-18] MEDS: ENOXAPARIN INJ 40 MG/0.4 ML SYR SQ SCH (20:28)
[2022-09-18] MEDS: PANTOprazole 40 MG TAB PO SCH (20:29)
[2022-09-18] MEDS: NEOMYCIN/POLYMYX/BACITR OINT 15 GM TUBE EXT SCH (22:36)
[2022-09-19 07:25] LABS: Hemoglobin 12.8 g/dl (12.0-16.0); Mean Corpuscular Hemoglobin 33.1 pg (25.0-34.0); Mean Corpuscular Hgb Conc 33.7 g/dL (32.0-36.0); Mean Corpuscular Volume 98.2 fL (80.0-100.0); Mean Platelet Volume 11.9 fL (9.4-12.4); Platelet Count 167 K/uL (130-400); RDW Coefficient of Variation 13.1 % (11.5-14.5); RDW Standard Deviation 46.9 fL (36.4-46.3); Red Blood Count 3.87 M/uL (4.20-5.40); White Blood Count 4.58 K/ul (4.8-10.8)
[2022-09-19 07:49] LABS: BUN Creatinine Ratio 17.8 (10-20); Calcium 8.8 mg/dl (8.6-10.3); Creatinine Clr Calc Pharmacy 82.8 ml/min; Est GFR (Non-African American) 81.1 ml/min
[2022-09-19] MEDS: ZONISAMIDE 100 MG CAPSULE PO SCH ×2 (09:23→20:37)
[2022-09-19] MEDS: DULoxetine HCL 60 MG CAP PO SCH (09:23)
[2022-09-19] MEDS: PSYLLIUM or GUAR GUM FIBER POWDER PACKET PO SCH (09:23)
[2022-09-19] MEDS: MULTIVITAMIN TAB PO SCH (09:23)
[2022-09-19] MEDS: FAMOTIDINE 20 MG TAB PO SCH ×2 (09:23→20:37)
[2022-09-19] MEDS: DIVALPROEX DELAY RELEASE 500 MG TAB PO SCH (09:23)
[2022-09-19] MEDS: LACOSAMIDE 50 MG TABLET PO SCH ×2 (09:24→20:37)
[2022-09-19] MEDS: risperiDONE 1 MG TABLET PO SCH ×2 (09:24→20:37)
[2022-09-19] MEDS: NEOMYCIN/POLYMYX/BACITR OINT 15 GM TUBE EXT SCH ×2 (09:24→20:37)
[2022-09-19] MEDS: CLOBAZAM 5 MG PO SCH ×2 (09:25→20:36)
[2022-09-19] MEDS: clonazePAM 0.5 MG TAB PO SCH ×2 (09:32→20:37)
[2022-09-19] MEDS: DIVALPROEX DELAY RELEASE 250 MG TABEC PO SCH ×2 (12:10→20:37)
--- NOTE | 2022-09-19 14:31 | Psychiatric Progress Note ---
Date of Service September 19, 2022 Impression / Recommendations Impression Diagnostically consistent with likely depressive episode with increased irritability in context of BPAD, ASD with intellectual disability, and OCD. With exception of one odd belief about genie controlling her epilepsy no other symptoms of psychosis, suggests depressive episode in context of BPAD with added concrete and impulsive nature of emergence of SI likely from ASD. Her interrupted suicide attempt is concerning in that she gave no indication to her parents or other supports of her plan to leave the home to act on her thoughts and reports that her SI and plan came on quite impulsively. She continues to almaraz ve some ambivalence about being alive which further emphasizes the importance of ongoing hospitalization for safety and stabilization as well as options for medication adjustments, possible additional outpatient resources and working to identify any additional contributing risk factors/modifiable risk factors. Ongoing challenge with lack of more intensive outpatient supports and housing resources remains significant contributing factor that will difficult to modify. 09/19/2022: Some improvement in mood today but still with concerns for possibility for another impulsive suicide attempt given lack of warning signs and her identifying lack of identifiable route to independent housing as biggest factor contributing to her SI. She is able to discuss sedating medications and ways to restructure beliefs about need for additional sleep and sleeping in as not necessarily negative in attempt to reduce frustration and self-blame related to this. She also has insight into impact of anxiety and OCD symptoms in contributing to her frustration at times. Reviewed with Randi and her parents recommendation to consider Depakote increase and/or duloxetine increase. Randi and her parents consent to increasing duloxetine to 90mg, above FDA max dose in effort to get further benefit for anxiety, mood and OCD symptoms which may in turn lead to need for less Klonopin/Onfin over time and ideally less ir ritability over time which could then allow for possible risperidone reduction. Reviewed that Randi, who was required to participate in recent housing/waiver funding meeting with the [facility], feels this was very stressful and would prefer not to participate in any future meetings as she trusts her parents to represent her interests. Reviewed with her parents that they have both medical and mental health guardianship. Discussed possible resource of [facility] program in [place] for exploring barriers to getting her consolidated waiver, though unclear if they would be able to offer any additional resources compared with what her parents and outpatient providers have already explored. Additional option of Crisis software development specialist explored as added outpatient resource, she otherwise has all available known outpatient resources and services that we could refer to. (1) Depression with suicidal ideation: (2) Autism: (3) Cerebral palsy: (4) S/P PRACTICE LEAD shunt: (5) Epilepsy: (6) OCD (obsessive compulsive disorder): (7) Mood disorder: (8) Suicidal ideation: Plan -1-on-1 with suicide precautions given impulsivity of recent attempt with no warning signs -May not leave AMA, if attempt please call security and psych liason as would meet 302 criteria -Increase duloxetine to 90mg daily, patient and parents aware this is above FDA max but some data to suggest possible benefits from higher dose especially for anxiety and OCD, they will monitor closely for side effects given ASD and potential to be extra sensitive to side effects/dose adjustments -Working with case management to set up multidisciplinary meeting per family's request to include her outpatient case briefer in case any additional ways to advocate for waiver process/housing -Psych liason to bring her safety plan to work on to help identify warning signs and ways to involve her supports to reduce likelihood of future attempt Protective Factors Assessment Employed: No Interval History Identifying Information Olivia Galindo" is a 36 yo woman who lives with her parents in [place] with a history of bipolar affective disorder, OCD, ASD requiring substantial assistance, CP, focal epilepsy, history of hydrocephalus s/p PRACTICE LEAD shunt, SHRUTIH on CPAP admitted medically for interrupted suicide attempt given medical/nursing complex needs. Psychiatry consulted for risk assessment and recommendations. Chief Complaint "Ok I understand". Review of Systems Notes slept well, eating well Subjective Subjective Patient was seen & assessed and interval progress reviewed. Randi is awake mid- day and working on word searches. She describes feeling less suicidal today and hopeful about returning home soon but also notes that she feels she'll become and remain suicidal given ongoing housing stress. Discussed that this is likely not something that will change quickly or in the near future and so to start thinking of possible warning signs and coping skills she can use. She identified not having to participate in any future meetings with the [facility] or others about housing would help reduce her stress. She trusts her parents to be part of these discussions and prefers that they be in charge of this. Spoke with her parents separately. They remain concerned about keeping her safe given lack of warning signs prior to her interrupted attempt and challenge of having 24/7 supervision. Reviewed potential community resources, biggest current challenge is the wait for her consolidated waiver. She had IQ testing in past and did not meet threshold for disability but does struggle significantly including with processing and meeting daily needs. Parents curious about option for disposition meeting and including her outpatient case briefer in case there are any other services or options given current hospitalization and acuity of near suicide attempt. Physical Exam Psychiatric Orientation: alert, oriented to person and oriented to place Apperance: appropriately dressed and appropriately groomed Eye Contact: good eye contact Motor Behavior: no abnormal motor movements Speech: normal rate/rhythm/volume of speech Affect: euthymic affect (smiles at times) and + anxious affect Mood: + depressed mood and + anxious mood Thought Process: linear/logical thought process and + concrete thought process Thought Content: reality based without delusions Suicidal Thoughts: denies suicidal thoughts Homicidal Thoughts: denies homicidal thoughts Hallucinations: no auditory hallucinations and no visual hallucinations Cognition: recent memory grossly intact, remote memory grossly intact and attention grossly intact Insight: + limited insight Judgment: + limited judgement Vital Signs (Past 24 Hours) Last Vital Signs Temp 37.0 C 09/19/22 07:30 Pulse 85 09/19/22 07:30 Resp 16 09/19/22 07:30 BP 119/79 09/19/22 07:30 Pulse Ox 96 09/19/22 07:30 O2 Del Method Room Air 09/19/22 07:30 Results & Data ([facility]) Laboratory Results Laboratory Results - last 24 hr 09/18/22 09/18/22 09/19/22 Unknown Unknown 06:25 WBC 4.58 L RBC 3.87 L Hgb 12.8 Hct 38.0 MCV 98.2 MCH 33.1 MCHC 33.7 RDW Std Deviation 46.9 H RDW Coeff of Lulu 13.1 Plt Count 167 MPV 11.9 Sodium Potassium Chloride Carbon Dioxide Anion Gap BUN Creatinine Est Cr Clr Drug Dosing Est GFR ( Amer) Est GFR (Non-Af Amer) BUN/Creatinine Ratio Glucose Calcium Stl C. cayetanensis PCR Not Detected Stool Rotavirus A PCR Not Detected Stl Adenov F 40/41 PCR Not Detected Stool Astrovirus (PCR) Not Detected Stool Campylobacter PCR Not Detected Stl C. diff Tox B Gene Negative Cdiff Gene Stool Cryptosporidium PCR Not Detected Stl E.coli Shiga Tox PCR Not Detected Stl Enterotoxigenic E PCR Not Detected Stool EPEC (PCR) Not Detected Stool EAEC (PCR) Not Detected Stl E. histolytica PCR Not Detected Stool Giardia Lamblia PCR Not Detected Stool Salmonella PCR Not Detected Stool Sapovirus (PCR) Not Detected Stl P. shigelloides PCR Not Detected Stl Shigella/EIEC PCR Not Detected St Y.enterocolitica PCR Not Detected Stool Vibrio (PCR) Not Detected Stl Vibrio cholerae PCR Not Detected Stl Norovirus GI/GII PCR Not Detected 09/19/22 06:25 WBC RBC Hgb Hct MCV MCH MCHC RDW Std Deviation RDW Coeff of Lulu Plt Count MPV Sodium 143 Potassium 4.0 Chloride 113 H Carbon Dioxide 24 Anion Gap 6 BUN 16 Creatinine 0.90 Est Cr Clr Drug Dosing 82.8 Est GFR ( Amer) 94.0 Est GFR (Non-Af Amer) 81.1 BUN/Creatinine Ratio 17.8 Glucose 75 Calcium 8.8 Stl C. cayetanensis PCR Stool Rotavirus A PCR Stl Adenov F 40/41 PCR Stool Astrovirus (PCR) Stool Campylobacter PCR Stl C. diff Tox B Gene Stool Cryptosporidium PCR Stl E.coli Shiga Tox PCR Stl Enterotoxigenic E PCR Stool EPEC (PCR) Stool EAEC (PCR) Stl E. histolytica PCR Stool Giardia Lamblia PCR Stool Salmonella PCR Stool Sapovirus (PCR) Stl P. shigelloides PCR Stl Shigella/EIEC PCR St Y.enterocolitica PCR Stool Vibrio (PCR) Stl Vibrio cholerae PCR Stl Norovirus GI/GII PCR Current Inpatient Medications Current Inpatient Medications: Current Inpatient Medications Acetaminophen (Acetaminophen 325 Mg Tab) 650 mg PO Q4H PRN PRN Reason: pain/fever Stop: 10/17/22 20:18 Clobazam (Clobazam 5mg Tabs) 1 each PO BID FAHEEM Stop: 10/18/22 12:29 Last Admin: 09/19/22 09:25 Dose: 1 each Clonazepam (Clonazepam 0.5 Mg Tab) 0.5 mg PO BID FAHEEM Stop: 10/17/22 21:44 Last Admin: 09/19/22 09:32 Dose: 0.5 mg Divalproex Sodium (Divalproex Delay Release 250 Mg Tabec) 250 mg PO BID@1200,2100 FAHEEM Stop: 10/17/22 21:44 Last Admin: 09/19/22 12:10 Dose: 250 mg Divalproex Sodium (Divalproex Delay Release 500 Mg Tab) 500 mg PO QAM [facility] Stop: 10/18/22 08:59 Last Admin: 09/19/22 09:23 Dose: 500 mg Duloxetine HCl (Duloxetine Hcl 60 Mg Cap) 60 mg PO DAILY FAHEEM Stop: 10/18/22 08:59 Last Admin: 09/19/22 09:23 Dose: 60 mg Enoxaparin Sodium (Enoxaparin Inj 40 Mg/0.4 Ml Syr) 40 mg SQ HS [facility] Stop: 10/17/22 20:59 Last Admin: 09/18/22 20:28 Dose: Not Given Famotidine (Famotidine 20 Mg Tab) 20 mg PO BID [facility] Stop: 10/17/22 21:44 Last Admin: 09/19/22 09:23 Dose: 20 mg Lacosamide (Lacosamide 50 Mg Tablet) 200 mg PO AMHS [facility] Stop: 10/17/22 21:44 Last Admin: 09/19/22 09:24 Dose: 200 mg Lorazepam (Lorazepam 0.5 Mg Tab) 0.5 mg PO DAILY PRN PRN Reason: Anxiety Stop: 10/17/22 21:42 Multivitamins (Multivitamin Tab) 1 tab PO QAM [facility] Stop: 10/18/22 08:59 Last Admin: 09/19/22 09:23 Dose: 1 tab Neomycin/Polymyxin/Bacitracin (Neomycin/Polymyx/Bacitr Oint 15 Gm Tube) 1 appln EXT BID [facility] Stop: 10/18/22 22:14 Last Admin: 09/19/22 09:24 Dose: 1 appln Ondansetron HCl (Ondansetron Inj 2 Mg/Ml 2 Ml Vial) 4 mg IV Q6H PRN PRN Reason: Nausea Stop: 10/17/22 20:18 Pantoprazole Sodium (Pantoprazole 40 Mg Tab) 40 mg PO HS [facility] Stop: 10/17/22 21:44 Last Admin: 09/18/22 20:29 Dose: 40 mg Polyethylene Glycol (Polyethylene (Miralax) 17 Gm Pack) 17 gm PO DAILY PRN PRN Reason: Constipation Stop: 10/18/22 11:36 Psyllium Hydrophilic Mucilloid (Psyllium Or Guar Gum Fiber Powder Packet) 1 pkt PO QAM [facility] Stop: 10/18/22 11:44 Last Admin: 09/19/22 09:23 Dose: 1 pkt Risperidone (Risperidone 1 Mg Tablet) 1 mg PO BID [facility] Stop: 10/17/22 21:44 Last Admin: 09/19/22 09:24 Dose: 1 mg Zonisamide (Zonisamide 100 Mg Capsule) 100 mg PO AMHS [facility] Stop: 10/17/22 21:44 Last Admin: 09/19/22 09:23 Dose: 100 mg (3) Cerebral palsy Cerebral palsy type: unspecified type Qualified Code(s): G80.9 - Cerebral palsy, unspecified
--- NOTE | 2022-09-19 15:32 | Hospitalist Progress Note ---
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 Continue Depakote, Vimpat, clobazam, Zonegran Follows Salbador Villanueva, underwent continuous EEG monitoring in June for 6 days chronic, stable No recent seizure H/O Hydrocephalus S/P GEOTHERMAL POWERPLANT SUPERVISOR shunt SHRUTHI Continue CPAP at bedtime DVT Px: Lovenox SQ Code Status FULL CODE Admission and Anticipated Discharge Date Admission Date: September 17, 2022 Subjective Patient is seen and examined at bedside Offers no new complaints Discussed with patient's family at bedside Sitter at bedside Also discussed with psychiatry today Plan agree increased on Cymbalta dose today Denies any chest pain, dyspnea, dizziness, nausea, vomiting, abdominal pain Review of Systems Review of Systems: All systems reviewed & are unremarkable except as noted in Subjective Physical Exam Physical Exam: Physical Exam: Vitals signs as noted above General Appearance:Moderately built and nourished, no apparent distress Head: normocephalic, Atraumatic Eyes: normal inspection, EOMI Neck: supple, Trachea midline Respiratory/Chest: Normal breath sounds, CTA, No accessory muscle use Cardiovascular: S1, S2, No murmur Abdomen/GI:Soft, Non tender, Bowel sounds present Extremities/Musculoskeletal:normal inspection, Trace edema Neurologic/Psych:AAOX3, grossly no focal neurological deficits, +Depression Skin: normal color, warm Results & Data Results & Data Vital Signs (Past 12 Hours) Vital Signs Temp Pulse Resp BP Pulse Ox O2 Del Method 09/19/22 14:51 36.7 C 77 16 141/86 H 98 Room Air 09/19/22 07:30 37.0 C 85 16 119/79 96 Room Air Laboratory Results Short CBC 09/19/22 Range/Units 06:25 WBC 4.58 L (4.8-10.8) K/ul Hgb 12.8 (12.0-16.0) g/dl Hct 38.0 (37.0-47.0) % Plt Count 167 (130-400) K/uL BMP 09/19/22 06:25 Sodium 143 Potassium 4.0 Chloride 113 H Carbon Dioxide 24 BUN 16 Creatinine 0.90 Glucose 75 Calcium 8.8 (2) Cerebral palsy Cerebral palsy type: unspecified type Qualified Code(s): G80.9 - Cerebral palsy, unspecified
[2022-09-19] MEDS: ENOXAPARIN INJ 40 MG/0.4 ML SYR SQ SCH (20:10)
[2022-09-19] MEDS: PANTOprazole 40 MG TAB PO SCH (20:37)
[2022-09-20 00:12] LABS: 7-Aminoclonaz, Confirm 27 ng/mL (<25); Hydro-Alp Ur, GC/MS NEGATIVE ng/mL (<25); Hydroxyethylflurazepam, Conf NEGATIVE ng/mL (<50); Hydroxymidazolam Ur, GC/MS NEGATIVE ng/mL (<50); Hydroxytriazolam NEGATIVE ng/mL (<50); Lorazepam, Ur GC/MS NEGATIVE ng/mL (<50); Nordiazepam, Confirm NEGATIVE ng/mL (<50); Oxazepam Ur, GC/MS NEGATIVE ng/mL (<50); Temazepam, Confirm NEGATIVE ng/mL (<50)
[2022-09-20] MEDS: DIVALPROEX DELAY RELEASE 500 MG TAB PO SCH (08:06)
[2022-09-20] MEDS: FAMOTIDINE 20 MG TAB PO SCH ×2 (08:06→20:32)
[2022-09-20] MEDS: risperiDONE 1 MG TABLET PO SCH ×2 (08:06→20:33)
[2022-09-20] MEDS: DULoxetine HCL 30 MG CAP PO SCH (08:06)
[2022-09-20] MEDS: MULTIVITAMIN TAB PO SCH (08:06)
[2022-09-20] MEDS: PSYLLIUM or GUAR GUM FIBER POWDER PACKET PO SCH (08:07)
[2022-09-20] MEDS: ZONISAMIDE 100 MG CAPSULE PO SCH ×2 (08:07→20:33)
[2022-09-20] MEDS: NEOMYCIN/POLYMYX/BACITR OINT 15 GM TUBE EXT SCH ×2 (08:07→20:34)
[2022-09-20] MEDS: clonazePAM 0.5 MG TAB PO SCH ×2 (08:18→20:36)
[2022-09-20] MEDS: LACOSAMIDE 50 MG TABLET PO SCH ×2 (08:19→20:32)
[2022-09-20] MEDS: CLOBAZAM 5 MG PO SCH ×2 (08:20→20:30)
[2022-09-20 09:02] LABS: Creatinine Clr Calc Pharmacy 84.6 ml/min; Est GFR (African American) 96.6 ml/min; Est GFR (Non-African American) 83.3 ml/min
[2022-09-20] MEDS: DIVALPROEX DELAY RELEASE 250 MG TABEC PO SCH ×2 (11:29→20:31)
--- NOTE | 2022-09-20 13:52 | Psychiatric Progress Note ---
Date of Service September 20, 2022 Impression / Recommendations Impression Diagnostically consistent with likely depressive episode with increased irritability in context of BPAD, ASD with intellectual disability, and OCD. With exception of one odd belief about genie controlling her epilepsy no other symptoms of psychosis, suggests depressive episode in context of BPAD with added concrete and impulsive nature of emergence of SI likely from ASD. Her interrupted suicide attempt is concerning in that she gave no indication to her parents or other supports of her plan to leave the home to act on her thoughts and reports that her SI and plan came on quite impulsively. She continues to amlaraz ve some ambivalence about being alive which further emphasizes the importance of ongoing hospitalization for safety and stabilization as well as options for medication adjustments, possible additional outpatient resources and working to identify any additional contributing risk factors/modifiable risk factors. Ongoing challenge with lack of more intensive outpatient supports and housing resources remains significant contributing factor that will difficult to modify. 09/20/2022: Mood improving, challenge remains some ambivalence about prior attempt being interrupted and potential difficulty utilizing coping skills if mood worsens again in the future. However, overall making progress and engaging well with no self-harming events and has maintained safety and has excellent support from her parents and outpatient providers to help her continue to work on practicing her coping skills, labeling emotions and advocating for housing/waiver/increased services to allow for independent living. Reviewed recommendation to consider physical hope box and virtual hope box which she likes the idea of doing and is agreeable to trying to use. Reviewed her safety plan and will make copies so she can place them around her home for visual reminders and support in remembering to use coping skills. (1) Depression with suicidal ideation: (2) Autism: (3) Cerebral palsy: (4) S/P CHIEF ACCOUNTANT shunt: (5) Epilepsy: (6) OCD (obsessive compulsive disorder): (7) Mood disorder: (8) Suicidal ideation: Plan -1-on-1 with suicide precautions given impulsivity of recent attempt with no warning signs -May not leave AMA, if attempt please call security and psych liason as would meet 302 criteria -Continue with increased duloxetine 90mg daily -Safety plan completed and reviewed -Discussed option to create a hope box after discharge and to consider [employer] hope box bernadette as well on her ipad/iphone -Multidisciplinary meeting to discuss discharge and possible additional resources/independent housing access tomorrow Protective Factors Assessment Employed: No Interval History Identifying Information Olivia Galindo" is a 36 yo woman who lives with her parents in [place] with a history of bipolar affective disorder, OCD, ASD requiring substantial assistance, CP, focal epilepsy, history of hydrocephalus s/p CHIEF ACCOUNTANT shunt, SHRUTHI on CPAP admitted medically for interrupted suicide attempt given medical/nursing complex needs. Psychiatry consulted for risk assessment and recommendations. Chief Complaint "I'm still in the middle". Review of Systems Notes sleeping well, eating well Subjective Subjective Randi was seen & assessed and interval progress reviewed. Spoke with Randi and her parents. She has been playing Rajesh this morning, drawing and brighter affect overall. She completed her safety plan and listed some excellent warning signs and coping skills she can use if SI re-occurs though she notes it can be difficult for her to share what she is feeling in the moment or ask for help. She identifies not wanting to upset others or make them feel bad but also notes that using new strategies can take some time to remember to incorporate. She discusses some anxiety related to some of her coping skills such as exercise as she doesn't inadvertently want to over exercise and cause heart problems or end up in a situation while using her bike where she has to rely on someone else. She is willing to do daily mood check-ins with her parents three times a day to help them get a sense of how she is feeling. She still feels "in the middle" about not attempting suicide but denies current SI. No side effects so far from higher dose of duloxetine. Physical Exam Psychiatric Orientation: alert, oriented to person and oriented to place Apperance: appropriately dressed and appropriately groomed Eye Contact: good eye contact Motor Behavior: no abnormal motor movements Speech: normal rate/rhythm/volume of speech Affect: euthymic affect (smiles at times) and + anxious affect Mood: + depressed mood and + anxious mood Thought Process: linear/logical thought process and + concrete thought process Thought Content: reality based without delusions Suicidal Thoughts: denies suicidal thoughts (but still slightly ambivalent about interrupted attempt) and denies suicidal plan Homicidal Thoughts: denies homicidal thoughts Hallucinations: no auditory hallucinations and no visual hallucinations Cognition: recent memory grossly intact, remote memory grossly intact and attention grossly intact Insight: + fair insight Judgment: + limited judgement Vital Signs (Past 24 Hours) Last Vital Signs Temp 36.6 C 09/20/22 07:16 Pulse 81 09/20/22 07:16 Resp 18 09/20/22 07:16 BP 115/80 09/20/22 07:16 Pulse Ox 94 09/20/22 07:16 O2 Del Method Room Air 09/20/22 07:16 Results & Data ([facility]) Laboratory Results Laboratory Results - last 24 hr 09/17/22 09/20/22 15:30 07:50 Creatinine 0.88 Est Cr Clr Drug Dosing 84.6 Est GFR ( Amer) 96.6 Est GFR (Non-Af Amer) 83.3 U OH-Alprazolam Confrm NEGATIVE 7-Amino Clonazepam 27 H Ur Nordiazepam Confirm NEGATIVE U OH-ethylflurazepam NEGATIVE U Lorazepam Cnf GC/MS NEGATIVE U Oxazepam Confm GC/MS NEGATIVE Ur Temazepam Confirm NEGATIVE U OH-Triazolam Confirm NEGATIVE U OH-Midazolam Confirm NEGATIVE Drug Screen Comment SEE NOTE Current Inpatient Medications Current Inpatient Medications: Current Inpatient Medications Acetaminophen (Acetaminophen 325 Mg Tab) 650 mg PO Q4H PRN PRN Reason: pain/fever Stop: 10/17/22 20:18 Clobazam (Clobazam 5mg Tabs) 1 each PO BID [facility] Stop: 10/18/22 12:29 Last Admin: 09/20/22 08:20 Dose: 1 each Clonazepam (Clonazepam 0.5 Mg Tab) 0.5 mg PO BID [facility] Stop: 10/17/22 21:44 Last Admin: 09/20/22 08:18 Dose: 0.5 mg Divalproex Sodium (Divalproex Delay Release 250 Mg Tabec) 250 mg PO BID@1200,2100 [facility] Stop: 10/17/22 21:44 Last Admin: 09/20/22 11:29 Dose: 250 mg Divalproex Sodium (Divalproex Delay Release 500 Mg Tab) 500 mg PO QAM [facility] Stop: 10/18/22 08:59 Last Admin: 09/20/22 08:06 Dose: 500 mg Duloxetine HCl (Duloxetine Hcl 30 Mg Cap) 90 mg PO DAILY [facility] Stop: 10/20/22 08:59 Last Admin: 09/20/22 08:06 Dose: 90 mg Enoxaparin Sodium (Enoxaparin Inj 40 Mg/0.4 Ml Syr) 40 mg SQ HS [facility] Stop: 10/17/22 20:59 Last Admin: 09/19/22 20:10 Dose: Not Given Famotidine (Famotidine 20 Mg Tab) 20 mg PO BID [facility] Stop: 10/17/22 21:44 Last Admin: 09/20/22 08:06 Dose: 20 mg Lacosamide (Lacosamide 50 Mg Tablet) 200 mg PO AMHS [facility] Stop: 10/17/22 21:44 Last Admin: 09/20/22 08:19 Dose: 200 mg Lorazepam (Lorazepam 0.5 Mg Tab) 0.5 mg PO DAILY PRN PRN Reason: Anxiety Stop: 10/17/22 21:42 Multivitamins (Multivitamin Tab) 1 tab PO QAM [facility] Stop: 10/18/22 08:59 Last Admin: 09/20/22 08:06 Dose: 1 tab Neomycin/Polymyxin/Bacitracin (Neomycin/Polymyx/Bacitr Oint 15 Gm Tube) 1 appln EXT BID [facility] Stop: 10/18/22 22:14 Last Admin: 09/20/22 08:07 Dose: 1 appln Ondansetron HCl (Ondansetron Inj 2 Mg/Ml 2 Ml Vial) 4 mg IV Q6H PRN PRN Reason: Nausea Stop: 10/17/22 20:18 Pantoprazole Sodium (Pantoprazole 40 Mg Tab) 40 mg PO HS [facility] Stop: 10/17/22 21:44 Last Admin: 09/19/22 20:37 Dose: 40 mg Polyethylene Glycol (Polyethylene (Miralax) 17 Gm Pack) 17 gm PO DAILY PRN PRN Reason: Constipation Stop: 10/18/22 11:36 Psyllium Hydrophilic Mucilloid (Psyllium Or Guar Gum Fiber Powder Packet) 1 pkt PO QAM [facility] Stop: 10/18/22 11:44 Last Admin: 09/20/22 08:07 Dose: 1 pkt Risperidone (Risperidone 1 Mg Tablet) 1 mg PO BID [facility] Stop: 10/17/22 21:44 Last Admin: 09/20/22 08:06 Dose: 1 mg Zonisamide (Zonisamide 100 Mg Capsule) 100 mg PO AMHS [facility] Stop: 10/17/22 21:44 Last Admin: 09/20/22 08:07 Dose: 100 mg (3) Cerebral palsy Cerebral palsy type: unspecified type Qualified Code(s): G80.9 - Cerebral palsy, unspecified
--- NOTE | 2022-09-20 16:12 | Hospitalist Progress Note ---
Date of Service September 20, 2022 Assessment & Plan (1) Suicidal ideation: (2) Cerebral palsy: (3) Autism: (4) Mood disorder: (5) OCD (obsessive compulsive disorder): (6) Epilepsy: Plan Patient is a 36 yr female with H/O spastic quadriplegic cerebral palsy, epilepsy, hydrocephalus with MEDICAL OFFICE MANAGER shunt presents, partial idiopathic focal epilepsy, mood disorder, depression, OCD, history of prolonged QT hyperprolactinemia who presents to ED secondary to suicidal ideation/attempt. Suicidal Ideation Mood disorder Depression with anxiety OCD Patient unable to be admitted to psychiatric facility due to underlying comorbidities Follows with Dr.Battina Johnson Continue safe tray/suicide precautions Was on Depakote, 5 tablets daily, but currently taking 4 tablets due to dizziness (Symptoms improved with dose reduction) Continue Risperdal, duloxetine, clonazepam and Depakote Appreciate psychiatry input Meets 302 criteria, cannot leave AMA Cymbalta dose increased to 90 mg daily Continue current management Spastic quadriplegic cerebral palsy Patient wears brace to right lower extremity chronic, stable 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 Continue Depakote, Vimpat, clobazam, Zonegran Follows [facility], underwent continuous EEG monitoring in June for 6 days chronic, stable No recent seizure H/O Hydrocephalus S/P MEDICAL OFFICE MANAGER shunt Hypertension Started on low-dose amlodipine Monitor BP SHRUTHI Continue CPAP at bedtime DVT Px: Lovenox SQ Code Status FULL CODE Admission and Anticipated Discharge Date Admission Date: September 17, 2022 Subjective Patient is seen and examined at bedside Sitting on bed during my encounter Offers no new complaints Noted elevated BP Sitter at bedside Denies any chest pain, dyspnea, dizziness, nausea, vomiting, abdominal pain Review of Systems Review of Systems: All systems reviewed & are unremarkable except as noted in Subjective Physical Exam Physical Exam: Physical Exam: Vitals signs as noted above General Appearance:Moderately built and nourished, no apparent distress Head: normocephalic, Atraumatic Eyes: normal inspection, EOMI Neck: supple, Trachea midline Respiratory/Chest: Normal breath sounds, CTA, No accessory muscle use Cardiovascular: S1, S2, No murmur Abdomen/GI:Soft, Non tender, Bowel sounds present Extremities/Musculoskeletal:normal inspection, Trace edema Neurologic/Psych:AAOX3, grossly no focal neurological deficits, +Depression Skin: normal color, warm Results & Data Results & Data Vital Signs (Past 12 Hours) Vital Signs Temp Pulse Resp BP Pulse Ox O2 Del Method 09/20/22 15:25 36.6 C 78 18 142/101 H 98 Room Air 09/20/22 07:16 36.6 C 81 18 115/80 94 Room Air Laboratory Results BMP 09/20/22 07:50 Creatinine 0.88 (2) Cerebral palsy Cerebral palsy type: unspecified type Qualified Code(s): G80.9 - Cerebral palsy, unspecified
[2022-09-20] MEDS: amLODIPine BESYLATE 5 MG TAB PO SCH (16:40)
[2022-09-20] MEDS ORDERED: ALUMINUM/MAGNESIUM/SIMETH (MAALOX MAX) 30 ML UDC PO PRN (17:48)
[2022-09-20] MEDS: PANTOprazole 40 MG TAB PO SCH (20:33)
[2022-09-20] MEDS: ENOXAPARIN INJ 40 MG/0.4 ML SYR SQ SCH (20:34)
[2022-09-21] MEDS: LACOSAMIDE 50 MG TABLET PO SCH ×2 (08:22→20:26)
[2022-09-21] MEDS: CLOBAZAM 5 MG PO SCH ×2 (08:22→20:23)
[2022-09-21] MEDS: MULTIVITAMIN TAB PO SCH (08:22)
[2022-09-21] MEDS: amLODIPine BESYLATE 5 MG TAB PO SCH (08:22)
[2022-09-21] MEDS: DULoxetine HCL 30 MG CAP PO SCH (08:23)
[2022-09-21] MEDS: risperiDONE 1 MG TABLET PO SCH ×2 (08:23→20:26)
[2022-09-21] MEDS: PSYLLIUM or GUAR GUM FIBER POWDER PACKET PO SCH (08:23)
[2022-09-21] MEDS: NEOMYCIN/POLYMYX/BACITR OINT 15 GM TUBE EXT SCH ×2 (08:23→20:27)
[2022-09-21] MEDS: ZONISAMIDE 100 MG CAPSULE PO SCH ×2 (08:23→20:26)
[2022-09-21] MEDS: FAMOTIDINE 20 MG TAB PO SCH ×2 (08:23→20:25)
[2022-09-21] MEDS: DIVALPROEX DELAY RELEASE 500 MG TAB PO SCH (08:24)
[2022-09-21] MEDS: clonazePAM 0.5 MG TAB PO SCH ×2 (08:32→20:25)
[2022-09-21] MEDS: DIVALPROEX DELAY RELEASE 250 MG TABEC PO SCH ×2 (11:35→20:23)
--- NOTE | 2022-09-21 13:08 | Psychiatric Progress Note ---
Date of Service September 21, 2022 Impression / Recommendations Impression Diagnostically consistent with likely depressive episode with increased irritability in context of BPAD, ASD with intellectual disability, and OCD. With exception of one odd belief about genie controlling her epilepsy no other symptoms of psychosis, suggests depressive episode in context of BPAD with added concrete and impulsive nature of emergence of SI likely from ASD. Her interrupted suicide attempt is concerning in that she gave no indication to her parents or other supports of her plan to leave the home to act on her thoughts and reports that her SI and plan came on quite impulsively. 09/21/2022: Her mood is improving with no SI and today not describing any ambivalence, noting she is glad to be alive and future-oriented and willing to engage with crisis peer and continue with her outpatient services. She is tolerating the increase of duloxetine without any side effects, no worsening of baseline HTN. Chronically risk is elevated by non-modifiable risk factor of her understandable goal to have more independence and to be able to live separately from her parents but this is challenged by lack of waiver funding and staffing to allow for a transition to an environment where she would have support for her medical and mental health needs. TATIANNA discussed assisted living option but her parents note Randi is not interested in this. Randi's parents and outpatient providers are all wonderful supports and advocates for her needs and unfortunately have exhausted most of the local resources and have even created new types of programs and resources to expand her access to treatments and community engagement opportunities. She is willing to have a referral for Peer Crisis [facility] and TATIANNA emailed her outpatient providers resources for possible residential program via [facility] if a higher level of care is deemed necessary in the future/enquire about possible waitlist. Unfortunately there are no other local or known virtual IOP options or residential treatment programs nor other additional outpatient resources beyond what she has. Michaelle and Denny confirmed that they have tested their home alarm system which will alert should Randi try to leave the home in the future as an additional safety measure. Randi is planning to work on a hope box after discharge. (1) Depression with suicidal ideation: (2) Autism: (3) Cerebral palsy: (4) S/P DIRECTOR SANITATION BUREAU shunt: (5) Epilepsy: (6) OCD (obsessive compulsive disorder): (7) Mood disorder: (8) Suicidal ideation: Plan -1-on-1 with suicide precautions given impulsivity of recent attempt -May not leave AMA, if attempt please call security and psych liason -Continue with increased duloxetine 90mg daily -Safety plan completed and reviewed -Recommended hope box -Multidisciplinary meeting: reviewed her current outpatient services which are extensive, referral made for peer crisis CRR, information provided to her outpatient CM regarding [facility] as possible resource, reviewed [facility] as possible resource (possible respite services?), SW looked into [facility]/other larger [facility] options for residential care-none known ([facility] is a resource her outpatient team could consider in the future to investigate other potential more national options), discussed option for outpatient CM to refer her for additional outpatient psychiatric/therapy/SW resources through [facility], [facility], or [facility] given [facility] feels they are offering all they can and further resources/specialization may be beneficial for Randi and her family Protective Factors Assessment Employed: No Interval History Identifying Information Olivia Galindo" is a 36 yo woman who lives with her parents in [place] with a history of bipolar affective disorder, OCD, ASD requiring substantial assistance, CP, focal epilepsy, history of hydrocephalus s/p DIRECTOR SANITATION BUREAU shunt, SHRUTHI on CPAP admitted medically for interrupted suicide attempt given medical/nursing complex needs. Psychiatry consulted for risk assessment and recommendations. Chief Complaint "good". Review of Systems Notes sleeping and eating well Subjective Subjective Patient was seen & assessed and interval progress reviewed. This morning participated in multidisciplinary meeting with Randi's parents Michaelle and Denny, her outpatient human services case manager through the [facility] Lib[place], her rn social services Kemi from the [facility] psychological clinic, Dr. Johnson via phone from the [facility] psychological clinic, psychiatric liason and [facility] rn social services to discuss Randi's progress while in the hospital for acute stabilization and longer-term outpatient goals and concerns regarding her progress with her current services and ongoing challenges with the consolidated waiver approval wait. In summary a variety of topics were covered during the meeting including: -the overall challenge for Randi's outpatient providers of trying to provide more wrap-around services given lack of additional outpatient resources - long-term goal of having her in an independent living situation in which her parents suspect she would thrive which has been challenged by slow consolidated waiver process/long waitlist - how her physical conditions can lead to increased difficulty accessing more intensive psychiatric services such as certain residential type programs or living situations or certain inpatient psychiatric settings - funding barriers/staffing barriers for outpatient care - lack of local and other mid-level outpatient resources such as [facility] or residential programs - Randi's remarkable resilience and ability to challenge limitations placed on her despite the barriers in her way i.e. learning to swim, learning to walk - any possible additional outpatient resources, discussed Peer Crisis [facility] referral - sustainability of various outpatient resources given financial constraints, supervision, etc; discussed looking into [facility] to see if they can provide any respite services or know of any other local or national resources Also met with Randi in the afternoon who reported "good" mood. She denied SI. She denies any new medication side effects. She is agreeable with plan for potential discharge tomorrow if she continues to feel safe. She is willing to try the crisis peer program by meeting with someone to work on goals of safety, putting her coping skills into action when her mood is impacted, and setting other short-term goals she would like to work on such as possibly finding ways to start her mornings a bit earlier. Physical Exam Psychiatric Orientation: alert, oriented to person and oriented to place Apperance: appropriately dressed and appropriately groomed Eye Contact: good eye contact Motor Behavior: no abnormal motor movements Speech: normal rate/rhythm/volume of speech Affect: euthymic affect (smiles, laughs) Mood: + anxious mood; no depressed mood Thought Process: linear/logical thought process and + concrete thought process Thought Content: reality based without delusions Suicidal Thoughts: denies suicidal thoughts and denies suicidal plan Homicidal Thoughts: denies homicidal thoughts Hallucinations: no auditory hallucinations and no visual hallucinations Cognition: recent memory grossly intact, remote memory grossly intact and attention grossly intact Insight: + fair insight Judgment: + limited judgement Vital Signs (Past 24 Hours) Last Vital Signs Temp 36.7 C 09/21/22 07:49 Pulse 90 09/21/22 07:49 Resp 16 09/21/22 07:49 BP 154/97 H 09/21/22 07:49 Pulse Ox 97 09/21/22 07:49 O2 Del Method Room Air 09/21/22 08:38 Results & Data ([facility]) Current Inpatient Medications Current Inpatient Medications: Current Inpatient Medications Acetaminophen (Acetaminophen 325 Mg Tab) 650 mg PO Q4H PRN PRN Reason: pain/fever Stop: 10/17/22 20:18 Al Hydrox/Mg Hydrox/Simethicone (Aluminum/Magnesium/Simeth (Maalox Max) 30 Ml Udc) 30 ml PO Q6H PRN PRN Reason: Dyspepsia Stop: 10/20/22 17:47 Last Admin: 09/20/22 17:53 Dose: 30 ml Amlodipine Besylate (Amlodipine Besylate 5 Mg Tab) 2.5 mg PO QAM [facility] Stop: 10/20/22 16:14 Last Admin: 09/21/22 08:22 Dose: 2.5 mg Clobazam (Clobazam 5mg Tabs) 1 each PO BID [facility] Stop: 10/18/22 12:29 Last Admin: 09/21/22 08:22 Dose: 1 each Clonazepam (Clonazepam 0.5 Mg Tab) 0.5 mg PO BID [facility] Stop: 10/17/22 21:44 Last Admin: 09/21/22 08:32 Dose: 0.5 mg Divalproex Sodium (Divalproex Delay Release 250 Mg Tabec) 250 mg PO BID@1200,2100 [facility] Stop: 10/17/22 21:44 Last Admin: 09/21/22 11:35 Dose: 250 mg Divalproex Sodium (Divalproex Delay Release 500 Mg Tab) 500 mg PO QAM [facility] Stop: 10/18/22 08:59 Last Admin: 09/21/22 08:24 Dose: 500 mg Duloxetine HCl (Duloxetine Hcl 30 Mg Cap) 90 mg PO DAILY [facility] Stop: 10/20/22 08:59 Last Admin: 09/21/22 08:23 Dose: 90 mg Enoxaparin Sodium (Enoxaparin Inj 40 Mg/0.4 Ml Syr) 40 mg SQ HS [facility] Stop: 10/17/22 20:59 Last Admin: 09/20/22 20:34 Dose: 40 mg Famotidine (Famotidine 20 Mg Tab) 20 mg PO BID [facility] Stop: 10/17/22 21:44 Last Admin: 09/21/22 08:23 Dose: 20 mg Lacosamide (Lacosamide 50 Mg Tablet) 200 mg PO AMHS [facility] Stop: 10/17/22 21:44 Last Admin: 09/21/22 08:22 Dose: 200 mg Lorazepam (Lorazepam 0.5 Mg Tab) 0.5 mg PO DAILY PRN PRN Reason: Anxiety Stop: 10/17/22 21:42 Multivitamins (Multivitamin Tab) 1 tab PO QAM [facility] Stop: 10/18/22 08:59 Last Admin: 09/21/22 08:22 Dose: 1 tab Neomycin/Polymyxin/Bacitracin (Neomycin/Polymyx/Bacitr Oint 15 Gm Tube) 1 appln EXT BID [facility] Stop: 10/18/22 22:14 Last Admin: 09/21/22 08:23 Dose: 1 appln Ondansetron HCl (Ondansetron Inj 2 Mg/Ml 2 Ml Vial) 4 mg IV Q6H PRN PRN Reason: Nausea Stop: 10/17/22 20:18 Pantoprazole Sodium (Pantoprazole 40 Mg Tab) 40 mg PO HS [facility] Stop: 10/17/22 21:44 Last Admin: 09/20/22 20:33 Dose: 40 mg Polyethylene Glycol (Polyethylene (Miralax) 17 Gm Pack) 17 gm PO DAILY PRN PRN Reason: Constipation Stop: 10/18/22 11:36 Psyllium Hydrophilic Mucilloid (Psyllium Or Guar Gum Fiber Powder Packet) 1 pkt PO QAM [facility] Stop: 10/18/22 11:44 Last Admin: 09/21/22 08:23 Dose: 1 pkt Risperidone (Risperidone 1 Mg Tablet) 1 mg PO BID [facility] Stop: 10/17/22 21:44 Last Admin: 09/21/22 08:23 Dose: 1 mg Zonisamide (Zonisamide 100 Mg Capsule) 100 mg PO AMHS [facility] Stop: 10/17/22 21:44 Last Admin: 09/21/22 08:23 Dose: 100 mg (3) Cerebral palsy Cerebral palsy type: unspecified type Qualified Code(s): G80.9 - Cerebral palsy, unspecified
--- NOTE | 2022-09-21 16:20 | Hospitalist Progress Note ---
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 Suicidal Ideation Mood disorder Depression with anxiety OCD Patient unable to be admitted to psychiatric facility due to underlying comorbidities Follows with Dr.Battina Johnson Continue safe tray/suicide precautions Was on Depakote, 5 tablets daily, but currently taking 4 tablets due to dizziness (Symptoms improved with dose reduction) Continue Risperdal, duloxetine, clonazepam and Depakote Appreciate psychiatry input Meets 302 criteria, cannot leave AMA Cymbalta dose increased to 90 mg daily Likely plan to discharge tomorrow if stable Needs follow-up with psychiatry upon discharge Spastic quadriplegic cerebral palsy Patient wears brace to right lower extremity chronic, stable 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 Continue Depakote, Vimpat, clobazam, Zonegran [facility]s [facility], underwent continuous EEG monitoring in June for 6 days chronic, stable No recent seizure H/O Hydrocephalus S/P SPRAY GUN REPAIRER HELPER shunt Hypertension Started on low-dose amlodipine Monitor BP GERD Continue PPI Maalox as needed SHRUTHI Continue CPAP at bedtime DVT Px: Lovenox SQ Code Status FULL CODE Admission and Anticipated Discharge Date Admission Date: September 17, 2022 Subjective Patient is seen and examined at bedside GERD symptoms resolved Discussed with psychiatry today Sitter at bedside Denies any chest pain, dyspnea, dizziness, nausea, vomiting, abdominal pain Review of Systems Review of Systems: All systems reviewed & are unremarkable except as noted in Subjective Physical Exam Physical Exam: Physical Exam: Vitals signs as noted above General Appearance:Moderately built and nourished, no apparent distress Head: normocephalic, Atraumatic Eyes: normal inspection, EOMI Neck: supple, Trachea midline Respiratory/Chest: Normal breath sounds, CTA, No accessory muscle use Cardiovascular: S1, S2, No murmur Abdomen/GI:Soft, Non tender, Bowel sounds present Extremities/Musculoskeletal:normal inspection, Trace edema Neurologic/Psych:AAOX3, grossly no focal neurological deficits, +Depression Skin: normal color, warm Results & Data Results & Data Vital Signs (Past 12 Hours) Vital Signs Temp Pulse Resp BP Pulse Ox O2 Del Method 09/21/22 08:38 Room Air 09/21/22 07:49 36.7 C 90 16 154/97 H 97 Room Air (2) Cerebral palsy Cerebral palsy type: unspecified type Qualified Code(s): G80.9 - Cerebral palsy, unspecified
[2022-09-21] MEDS: ENOXAPARIN INJ 40 MG/0.4 ML SYR SQ SCH (20:22)
[2022-09-21] MEDS: PANTOprazole 40 MG TAB PO SCH (20:26)
--- NOTE | 2022-09-22 06:04 | Psychiatric Progress Note ---
Date of Service September 22, 2022 Impression / Recommendations Impression Diagnostically consistent with likely depressive episode with increased irritability in context of BPAD, ASD with intellectual disability, and OCD. With exception of one odd belief about genie controlling her epilepsy no other symptoms of psychosis, suggests depressive episode in context of BPAD with added concrete and impulsive nature of emergence of SI likely from ASD. Her interrupted suicide attempt is concerning in that she gave no indication to her parents or other supports of her plan to leave the home to act on her thoughts and reports that her SI and plan came on quite impulsively. 09/22/2022: Ongoing mood stability, no longer showing or endorsing any signs of depression nor irritability. She denies SI and is future-focused about going home and looking forward to seeing her dogs, being with her parents and engaging with her outpatient supports. Reviewed safety planning again and she feels comfortable asking for support if she develops SI in the future or to call 911 and agrees to use her safety plan (in fact proactively brings this up as a tool and is glad to have multiple copies to take home). Continues to tolerate higher dose of duloxetine 90mg daily without any side effects, blood pressure remains slightly elevated but lower than baseline slightly elevated BP from admission, no signs of any worsening of HTN and no tachycardia. Provided additional resource of residential options for ASD treatment for her parents to have if desired in the future with information about two programs for adults in [place] found on the [employer] online resource guide. Acute risk is low given improvement in mood and denial of SI, lack of access to lethal means, hopefulness and future-oriented. Chronic risk is moderate to high given multiple non-modifiable risk factors: psychiatric co-morbid diagnoses, periods of impulsivity, prior attempt, emotional reactivity, chronic illness, mood disorder, difficulty getting consolidated waiver for long-term goal of increased independence but also with protective factors including: good social support, sense of responsibility to family and social supports, outpatient care in place, positive coping skills, positive problem solving, resilience, capacity to establish therapeutic alliance, willingness to engage with treatment and excellent advocates via her parents and outpatient providers. Counseled on ways to reduce acute and chronic risk including engaging with outpatient providers, using safety plan if needed, considering hope box, utilizing supports, taking medication, and using coping skills. Modifiable risk factors of SI and depressi on were addressed during hospitalization through development of multidisciplinary meeting, family tested home alarm system which they will use, safety planning, safety and stabilization, and medication adjustments. (1) Depression with suicidal ideation: (2) Autism: (3) Cerebral palsy: (4) S/P CUSTOM CLOTHIER shunt: (5) Epilepsy: (6) OCD (obsessive compulsive disorder): (7) Mood disorder: (8) Suicidal ideation: Plan -Safe for discharge from psychiatric standpoint with her parents -Continue with increased duloxetine 90mg daily -Safety plan completed and reviewed -Recommended hope box -Has outpatient services to return to including outpatient psychiatry and therapy -Base services concert or lecture hall manager provided with information on additional possible residential resources if needed in the future -Discussed with Dr. García Protective Factors Assessment Employed: No Interval History Identifying Information Olivia Galindo" is a 36 yo woman who lives with her parents in [place] with a history of bipolar affective disorder, OCD, ASD requiring substantial assistance, CP, focal epilepsy, history of hydrocephalus s/p CUSTOM CLOTHIER shunt, SHRUTHI on CPAP admitted medically for interrupted suicide attempt given medical/nursing complex needs. Psychiatry consulted for risk assessment and recommendations. Chief Complaint "I'm good". Review of Systems Notes slept well, eating well Subjective Subjective Patient was seen & assessed and interval progress reviewed. Continued to do well yesterday with no episodes of SI nor self-harm nor behavioral dysregulation. This morning continues to report positive "good" mood. She did think more about the crisis peer referral and isn't sure that she wants to do this in the outpatient setting as she notes that having too many supports or things on her schedule can be overwhelming and lead to feelings of frustration. Discussed that they will reach out to her parents in a few days and if she decides she doesn't want to work with a Crisis peer then it's absolutely within her right to decline which she is appreciative of option for. She notes she feels well supported by her current outpatient supports and is looking forward to seeing her dogs and returning home. She feels safe and denies SI. Denies any new medication side effects. Physical Exam Psychiatric Orientation: alert, oriented to person and oriented to place Apperance: appropriately dressed and appropriately groomed Eye Contact: good eye contact Motor Behavior: no abnormal motor movements Speech: normal rate/rhythm/volume of speech Affect: euthymic affect (smiles, laughs) Mood: no depressed mood and no anxious mood Thought Process: linear/logical thought process and + concrete thought process Thought Content: reality based without delusions Suicidal Thoughts: denies suicidal thoughts and denies suicidal plan Homicidal Thoughts: denies homicidal thoughts Hallucinations: no auditory hallucinations and no visual hallucinations Cognition: recent memory grossly intact, remote memory grossly intact and attention grossly intact Insight: + fair insight Judgment: + limited judgement Vital Signs (Past 24 Hours) Last Vital Signs Temp 36.7 C 09/21/22 20:33 Pulse 69 09/21/22 20:33 Resp 18 09/21/22 20:33 BP 141/87 H 09/21/22 20:33 Pulse Ox 100 09/21/22 20:33 O2 Del Method Room Air 09/21/22 20:33 Results & Data ([facility]) Current Inpatient Medications Current Inpatient Medications: Current Inpatient Medications Acetaminophen (Acetaminophen 325 Mg Tab) 650 mg PO Q4H PRN PRN Reason: pain/fever Stop: 10/17/22 20:18 Al Hydrox/Mg Hydrox/Simethicone (Aluminum/Magnesium/Simeth (Maalox Max) 30 Ml Udc) 30 ml PO Q6H PRN PRN Reason: Dyspepsia Stop: 10/20/22 17:47 Last Admin: 09/20/22 17:53 Dose: 30 ml Amlodipine Besylate (Amlodipine Besylate 5 Mg Tab) [facility] [place]: 10/20/22 16:14 Last Admin: 09/21/22 08:22 Dose: 2.5 mg Clobazam (Clobazam 5mg Tabs) 1 each PO BID [facility] Stop: 10/18/22 12:29 Last Admin: 09/21/22 20:23 Dose: 1 each Clonazepam (Clonazepam 0.5 Mg Tab) 0.5 mg PO BID [facility] Stop: 10/17/22 21:44 Last Admin: 09/21/22 20:25 Dose: 0.5 mg Divalproex Sodium (Divalproex Delay Release 250 Mg Tabec) 250 mg PO BID@1200,2100 [facility] Stop: 10/17/22 21:44 Last Admin: 09/21/22 20:23 Dose: 250 mg Divalproex Sodium (Divalproex Delay Release 500 Mg Tab) 500 mg PO QAM [facility] Stop: 10/18/22 08:59 Last Admin: 09/21/22 08:24 Dose: 500 mg Duloxetine HCl (Duloxetine Hcl 30 Mg Cap) 90 mg PO DAILY [facility] Stop: 10/20/22 08:59 Last Admin: 09/21/22 08:23 Dose: 90 mg Enoxaparin Sodium (Enoxaparin Inj 40 Mg/0.4 Ml Syr) 40 mg SQ HS [facility] Stop: 10/17/22 20:59 Last Admin: 09/21/22 20:22 Dose: 40 mg Famotidine (Famotidine 20 Mg Tab) 20 mg PO BID [facility] Stop: 10/17/22 21:44 Last Admin: 09/21/22 20:25 Dose: 20 mg Lacosamide (Lacosamide 50 Mg Tablet) 200 mg PO AMHS [facility] Stop: 10/17/22 21:44 Last Admin: 09/21/22 20:26 Dose: 200 mg Lorazepam (Lorazepam 0.5 Mg Tab) 0.5 mg PO DAILY PRN PRN Reason: Anxiety Stop: 10/17/22 21:42 Multivitamins (Multivitamin Tab) 1 tab PO QAM [facility] Stop: 10/18/22 08:59 Last Admin: 09/21/22 08:22 Dose: 1 tab Neomycin/Polymyxin/Bacitracin (Neomycin/Polymyx/Bacitr Oint 15 Gm Tube) 1 appln EXT BID [facility] Stop: 10/18/22 22:14 Last Admin: 09/21/22 20:27 Dose: 1 appln Ondansetron HCl (Ondansetron Inj 2 Mg/Ml 2 Ml Vial) 4 mg IV Q6H PRN PRN Reason: Nausea Stop: 10/17/22 20:18 Pantoprazole Sodium (Pantoprazole 40 Mg Tab) 40 mg PO HS [facility] Stop: 10/17/22 21:44 Last Admin: 09/21/22 20:26 Dose: 40 mg Polyethylene Glycol (Polyethylene (Miralax) 17 Gm Pack) 17 gm PO DAILY PRN PRN Reason: Constipation Stop: 10/18/22 11:36 Psyllium Hydrophilic Mucilloid (Psyllium Or Guar Gum Fiber Powder Packet) 1 pkt PO QAM [facility] Stop: 10/18/22 11:44 Last Admin: 09/21/22 08:23 Dose: 1 pkt Risperidone (Risperidone 1 Mg Tablet) 1 mg PO BID [facility] Stop: 10/17/22 21:44 Last Admin: 09/21/22 20:26 Dose: 1 mg Zonisamide (Zonisamide 100 Mg Capsule) 100 mg PO AMHS [facility] Stop: 10/17/22 21:44 Last Admin: 09/21/22 20:26 Dose: 100 mg (3) Cerebral palsy Cerebral palsy type: unspecified type Qualified Code(s): G80.9 - Cerebral palsy, unspecified
[2022-09-22] MEDS: clonazePAM 0.5 MG TAB PO SCH (09:26)
[2022-09-22] MEDS: CLOBAZAM 5 MG PO SCH (09:26)
[2022-09-22] MEDS: LACOSAMIDE 50 MG TABLET PO SCH (09:26)
[2022-09-22] MEDS: ZONISAMIDE 100 MG CAPSULE PO SCH (09:26)
[2022-09-22] MEDS: FAMOTIDINE 20 MG TAB PO SCH (09:27)
[2022-09-22] MEDS: amLODIPine BESYLATE 5 MG TAB PO SCH (09:27)
[2022-09-22] MEDS: DIVALPROEX DELAY RELEASE 500 MG TAB PO SCH (09:27)
[2022-09-22] MEDS: DULoxetine HCL 30 MG CAP PO SCH (09:27)
[2022-09-22] MEDS: MULTIVITAMIN TAB PO SCH (09:27)
[2022-09-22] MEDS: risperiDONE 1 MG TABLET PO SCH (09:27)
[2022-09-22] MEDS: NEOMYCIN/POLYMYX/BACITR OINT 15 GM TUBE EXT SCH (09:28)
[2022-09-22] MEDS: PSYLLIUM or GUAR GUM FIBER POWDER PACKET PO SCH (09:29)
--- NOTE | 2022-09-22 11:49 | Hospitalist Progress Note ---
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 Suicidal Ideation Mood disorder Depression with anxiety OCD Patient unable to be admitted to psychiatric facility due to underlying comorbidities Follows with Dr.Battina Johnson Continue safe tray/suicide precautions Was on Depakote, 5 tablets daily, but currently taking 4 tablets due to dizziness (Symptoms improved with dose reduction) Continue Risperdal, duloxetine, clonazepam and Depakote Appreciate psychiatry input Safe for discharge from psychiatric standpoint per record Cymbalta dose increased to 90 mg daily Needs follow-up with psychiatry upon discharge Spastic quadriplegic cerebral palsy Patient wears brace to right lower extremity chronic, stable 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 Continue Depakote, Vimpat, clobazam, Zonegran Follows [facility], underwent continuous EEG monitoring in June for 6 days chronic, stable No recent seizure H/O Hydrocephalus 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 Hypertension Started on low-dose amlodipine Monitor BP GERD Continue PPI Maalox as needed SHRUTHI Continue CPAP at bedtime DVT Px: Lovenox SQ Code Status FULL CODE Disposition Home Admission and Anticipated Discharge Date Admission Date: September 17, 2022 Subjective Patient is seen and examined at bedside No new complaints Denies any suicidal thoughts Discussed with patient's family at bedside Also discussed with psychiatrist on-call Denies any chest pain, dyspnea, dizziness, nausea, vomiting, abdominal pain Plan to discharge home today Review of Systems Review of Systems: All systems reviewed & are unremarkable except as noted in Subjective Physical Exam Physical Exam: Physical Exam: Vitals signs as noted above General Appearance:Moderately built and nourished, no apparent distress Head: normocephalic, Atraumatic Eyes: normal inspection, EOMI Neck: supple, Trachea midline Respiratory/Chest: Normal breath sounds, CTA, No accessory muscle use Cardiovascular: S1, S2, No murmur Abdomen/GI:Soft, Non tender, Bowel sounds present Extremities/Musculoskeletal:normal inspection, Trace edema Neurologic/Psych:AAOX3, grossly no focal neurological deficits, +Depression Skin: normal color, warm Results & Data Results & Data Vital Signs (Past 12 Hours) Vital Signs Temp Pulse Resp BP Pulse Ox O2 Del Method 09/22/22 11:21 36.6 C 88 20 128/87 100 Room Air (2) Cerebral palsy Cerebral palsy type: unspecified type Qualified Code(s): G80.9 - Cerebral palsy, unspecified
--- NOTE | 2022-09-22 11:59 | Discharge Summary ---
Date of Service September 22, 2022 Admission HPI Per Admitting Provider This is a 36-year-old female who has a significant past medical history of spastic quadriplegic cerebral palsy, epilepsy, hydrocephalus with HORSE DOCTOR shunt presents, partial idiopathic focal epilepsy, mood disorder, depression, OCD, history of prolonged QT hyperprolactinemia who presents to ED secondary to suicidal ideation/attempt. Patient currently resides with her parents. Both parents are at bedside. In setting of mood disorder patient does have periods of tomasz and then periods of depression. She has never once attempted suicide, but has had sporadic dialogue regarding being suicidal. She follows with Dr. Flavio Johnson of psychiatry through [facility]. Patient had a good night last night and a good morning. There was no signs of any depression or suicidal ideation. Father went to play golf and mother was sitting on the couch watching congregation when patient decided to walk out the back door and onto [address] Thankfully 2 ladies thought the situation was odd and brought her back to her house. Her mom realized that she was gone when the ladies brought her to the front door. Her intent was to go out on to [address], lay down and get run over by a car. She has never made an attempt like this before. Currently she does not feel like hurting herself or others at this time. She states that she wanted to end her life and have a, "God deal with all of her problems." She easily becomes very frustrated given her physical and mental challenges. She also is frustrated that she is unable to live independently. In ED patient remained hemodynamically stable. CBC, CMP, TSH and urinalysis was obtained. All was unremarkable except mild elevated glucose of 115 and AST of 41. Urine drug screen was positive for benzodiazepines. Due to patient's medical comorbidities she was deemed not a candidate for inpatient psych and therefore needed to be admitted to medical floor due to nursing needs. Admission Exam Per Admitting Provider Constitutional: WD/WN, vitals as above, NAD, sitting up in bedside chair, rocking in chair, lip tremor, pleasant, conversing easily with occasional stutter Head: Normocephalic, Atraumatic Eyes: PERRL, conjunctivae normal, anicteric sclerae ENMT: external ear and nose normal, oropharynx normal Neck: trachea midline, no thyromegaly normal visual inspection Respiratory: normal respiratory effort, lungs clear to auscultation, no wheeze, rales, rhonchi. Normal insp/exp effort, no accessory muscle use Cardiovascular: RRR, no murmur, no edema Vessels: no JVD or carotid bruit Chest: normal inspection of chest Abdomen: normal bowel sounds, soft, nontender, no hepatosplenomegaly Musculoskeletal: no cyanosis or clubbing, active range of motion x4, ankle splint to right lower extremity Skin: no rashes, warm and dry normal turgor Neurologic: PERRL, EOMI, accommodation nl, no face palsy, no dysarthria CN's II-XI intact bilaterally and moves all extremities Psychiatric: A+Ox3, euthymic affect Lymphatic: no cervical or axillary lymphadenopathy : deferred Principal Diagnosis Suicidal Ideation Mood disorder Hypertension Discharge Data Allergies Allergy/AdvReac Type Severity Reaction Status Date / Time No Known Allergies Allergy Verified 05/26/21 08:43 Consultations 09/17/22 17:34 ED Decision to Admit Stat 09/17/22 20:19 Consult Psychiatry Routine Procedures Performed Laboratory Results WBC 4.58 K/ul (4.8-10.8) L 09/19/22 06:25 RBC 3.87 M/uL (4.20-5.40) L 09/19/22 06:25 Hgb 12.8 g/dl (12.0-16.0) 09/19/22 06:25 Hct 38.0 % (37.0-47.0) 09/19/22 06:25 MCV 98.2 fL (80.0-100.0) 09/19/22 06:25 MCH 33.1 pg (25.0-34.0) 09/19/22 06:25 MCHC 33.7 g/dL (32.0-36.0) 09/19/22 06:25 RDW Std Deviation 46.9 fL (36.4-46.3) H 09/19/22 06:25 RDW Coeff of Lulu 13.1 % (11.5-14.5) 09/19/22 06:25 Plt Count 167 K/uL (130-400) 09/19/22 06:25 MPV 11.9 fL (9.4-12.4) 09/19/22 06:25 Immature Gran % (Auto) 0.2 % 09/17/22 15:30 Neut % (Auto) 46.2 % 09/17/22 15:30 Lymph % (Auto) 35.7 % 09/17/22 15:30 [place] % (Auto) 17.0 % 09/17/22 15:30 Eos % (Auto) 0.7 % 09/17/22 15:30 Baso % (Auto) 0.2 % 09/17/22 15:30 Neut # (Auto) 2.06 K/uL (1.40-6.50) 09/17/22 15:30 Lymph # (Auto) 1.59 K/uL (1.2-3.4) 09/17/22 15:30 [place] # (Auto) 0.76 K/uL (0.11-0.59) H 09/17/22 15:30 Eos # (Auto) 0.03 K/uL (0-0.50) 09/17/22 15:30 Baso # (Auto) 0.01 K/uL (0-0.2) 09/17/22 15:30 Immature Gran # (Auto) 0.01 K/uL (0.01-0.20) 09/17/22 15:30 Sodium 143 mmol/L (136-145) 09/19/22 06:25 Potassium 4.0 mmol/L (3.5-5.1) 09/19/22 06:25 Chloride 113 mmol/L (98-107) H 09/19/22 06:25 Carbon Dioxide 24 mmol/L (21-32) 09/19/22 06:25 Anion Gap 6 (3-11) 09/19/22 06:25 BUN 16 mg/dl (6-23) 09/19/22 06:25 Creatinine 0.88 mg/dl (0.6-1.2) 09/20/22 07:50 Est Cr Clr Drug Dosing 84.6 ml/min 09/20/22 07:50 Est GFR ( Amer) 96.6 ml/min 09/20/22 07:50 Est GFR (Non-Af Amer) 83.3 ml/min 09/20/22 07:50 BUN/Creatinine Ratio 17.8 (10-20) 09/19/22 06:25 Glucose 75 mg/dl (70-99(Fasting)) 09/19/22 06:25 Estimat Average Glucose 105 mg/dl 09/18/22 06:11 Hemoglobin A1c 5.3 % (4.5-5.6) 09/18/22 06:11 Calcium 8.8 mg/dl (8.6-10.3) 09/19/22 06:25 Magnesium 2.1 mg/dl (1.7-2.4) 09/18/22 06:11 Total Bilirubin 0.3 mg/dl (0.2-1.0) 09/18/22 06:11 AST 34 U/L (13-39) 09/18/22 06:11 ALT 33 U/L (7-52) 09/18/22 06:11 Alkaline Phosphatase 44 U/L (34-104) 09/18/22 06:11 Total Protein 6.8 gm/dl (6.0-8.3) 09/18/22 06:11 Albumin 3.4 gm/dl (3.4-5.0) 09/18/22 06:11 Globulin 3.4 gm/dl (2.5-4.0) 09/18/22 06:11 Albumin/Globulin Ratio 1.0 (0.9-2) 09/18/22 06:11 TSH 2.673 uIu/ml (0.300-4.500) 09/17/22 15:30 HCG, Qual Negative (Negative) 09/17/22 15:30 Urine Color Yellow 09/17/22 15:30 Urine Appearance Clear (Clear) 09/17/22 15:30 Urine pH 7.0 (4.5-7.5) 09/17/22 15:30 Ur Specific [place] 1.005 (1.000-1.030) 09/17/22 15:30 Urine Protein Negative (Negative) 09/17/22 15:30 Urine Glucose (UA) Negative (Negative) 09/17/22 15:30 Urine Ketones Negative (Negative) 09/17/22 15:30 Urine Blood Negative (Negative) 09/17/22 15:30 Urine Nitrite Negative (Negative) 09/17/22 15:30 Urine Bilirubin Negative (Negative) 09/17/22 15:30 Urine Urobilinogen Negative (Negative) 09/17/22 15:30 Ur Leukocyte Esterase Negative (Negative) 09/17/22 15:30 Stl C. cayetanensis PCR Not Detected (NotDetected) 09/18/22 Unknown Stool Rotavirus A PCR Not Detected (NotDetected) 09/18/22 Unknown Stl Adenov F 40/41 PCR Not Detected (NotDetected) 09/18/22 Unknown Stool Astrovirus (PCR) Not Detected (NotDetected) 09/18/22 Unknown Stool Campylobacter PCR Not Detected (NotDetected) 09/18/22 Unknown Stl C. diff Tox B Gene Negative Cdiff Gene (Neg) 09/18/22 Unknown Stool Cryptosporidium PCR Not Detected (NotDetected) 09/18/22 Unknown Stl E.coli Shiga Tox PCR Not Detected (NotDetected) 09/18/22 Unknown Stl Enterotoxigenic E PCR Not Detected (NotDetected) 09/18/22 Unknown Stool EPEC (PCR) Not Detected (NotDetected) 09/18/22 Unknown Stool EAEC (PCR) Not Detected (NotDetected) 09/18/22 Unknown Stl E. histolytica PCR Not Detected (NotDetected) 09/18/22 Unknown Stool Giardia Lamblia PCR Not Detected (NotDetected) 09/18/22 Unknown Stool Salmonella PCR Not Detected (NotDetected) 09/18/22 Unknown Stool Sapovirus (PCR) Not Detected (NotDetected) 09/18/22 Unknown Stl P. shigelloides PCR Not Detected (NotDetected) 09/18/22 Unknown Stl Shigella/EIEC PCR Not Detected (NotDetected) 09/18/[address]enterocolitica PCR Not Detected (NotDetected) 09/18/22 Unknown Stool Vibrio (PCR) Not Detected (NotDetected) 09/18/22 Unknown Stl Vibrio cholerae PCR Not Detected (NotDetected) 09/18/22 Unknown Stl Norovirus GI/GII PCR Not Detected (NotDetected) 09/18/22 Unknown Salicylates < 3.0 mg/dl (3.0-30) L 09/17/22 15:30 Urine Opiates Screen Neg (Neg) 09/17/22 15:30 Ur Methadone, Qual Neg (Neg) 09/17/22 15:30 Acetaminophen < 3 ug/ml (10-30) L 09/17/22 15:30 Urine Barbiturates Neg (Neg) 09/17/22 15:30 Valproic Acid 80 mcg/ml (50-100) 09/17/22 15:30 Ur Phencyclidine (PCP) Neg (Neg) 09/17/22 15:30 U Amphetamin/Meth Scrn Neg (Neg) 09/17/22 15:30 MDMA (Ecstasy) Screen Neg (Neg) 09/17/22 15:30 U OH-Alprazolam Confrm NEGATIVE ng/mL (<25) 09/17/22 15:30 U Benzodiazepines Scrn Pos (Neg) H 09/17/22 15:30 7-Amino Clonazepam 27 ng/mL (<25) H 09/17/22 15:30 Ur Nordiazepam Confirm NEGATIVE ng/mL (<50) 09/17/22 15:30 U OH-ethylflurazepam NEGATIVE ng/mL (<50) 09/17/22 15:30 U Lorazepam Cnf GC/MS NEGATIVE ng/mL (<50) 09/17/22 15:30 U Oxazepam Confm GC/MS NEGATIVE ng/mL (<50) 09/17/22 15:30 Ur Temazepam Confirm NEGATIVE ng/mL (<50) 09/17/22 15:30 U OH-Triazolam Confirm NEGATIVE ng/mL (<50) 09/17/22 15:30 U OH-Midazolam Confirm NEGATIVE ng/mL (<50) 09/17/22 15:30 Ur Cocaine Metabolite Neg (Neg) 09/17/22 15:30 U Marijuana (THC) Screen Neg (Neg) 09/17/22 15:30 Drug Screen Comment SEE NOTE 09/17/22 15:30 Ethyl Alcohol mg/dL < 10.0 mg/dl (<10.0) 09/17/22 15:30 SARS-CoV-2, RNA, NAAT NEGATIVE (NEGATIVE) 09/17/22 15:45 Hospital Course (1) Suicidal ideation: (2) Cerebral palsy: (3) Autism: (4) Mood disorder: (5) OCD (obsessive compulsive disorder): (6) Epilepsy: Plan Patient is a 36 yr female with H/O spastic quadriplegic cerebral palsy, epilepsy, hydrocephalus with HORSE DOCTOR shunt presents, partial idiopathic focal epilepsy, mood disorder, depression, OCD, history of prolonged QT hyperprolactinemia who presents to ED secondary to suicidal ideation/attempt. Suicidal Ideation Mood disorder Depression with anxiety OCD Patient unable to be admitted to psychiatric facility due to underlying comorbidities Follows with Dr.Battina Johnson Continue safe tray/suicide precautions Was on Depakote, 5 tablets daily, but currently taking 4 tablets due to dizziness (Symptoms improved with dose reduction) Continue Risperdal, duloxetine, clonazepam and Depakote Appreciate psychiatry input Safe for discharge from psychiatric standpoint per record Cymbalta dose increased to 90 mg daily Needs follow-up with psychiatry upon discharge Spastic quadriplegic cerebral palsy Patient wears brace to right lower extremity chronic, stable 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 Continue Depakote, Vimpat, clobazam, Zonegran Follows [facility] [place], underwent continuous EEG monitoring in June for 6 days chronic, stable No recent seizure H/O Hydrocephalus S/P HORSE DOCTOR shunt Hypertension Started on low-dose amlodipine Monitor BP GERD Continue PPI Maalox as needed SHRUTHI Continue CPAP at bedtime DVT Px: Lovenox SQ Code Status FULL CODE Disposition Home Total Time Total Time Spent Total Time Spent (In Minutes): 56 minutes Discharge Plan Discharge Items Patient Disposition: Home - Self-Care Reason For Visit: SUICIDAL IDEATION Discharge Diagnosis: Suicidal Ideation Mood disorder Hypertension Condition on Discharge: Good Activity: Per Instructions section Exercise/Sports: Gradually increase as tolerated Non-emergency contact: Primary Care Provider and Psychiatrist Call non-emergency contact if: you have any medication questions, your symptoms worsen, your pain is concerning for you and you have a fever Follow-up/Referrals: Candice Rasmussen DO [Primary Care Provider] - (Date & Time 09/28/2022 10:20 AM Provider Candice Rasmussen DO Department [facility] ) Diet: Regular Addtl Attending Provider Instructions: Follow-up with your primary care physician Dr. Rasmussen on 09/28/2022 10:20 AM Follow-up with your psychiatrist as advised --- Your Cymbalta dose is increased to 90 mg daily as recommended by your psychiatrist ---You are started on amlodipine 2.5 mg daily for better control of your blood pressure. -- Monitor your blood pressure regularly at home. Discuss with your primary physician for further adjustment of medications as needed. Seek immediate medical attention if your symptoms reoccur or worsen Please take all medications as instructed on discharge list below. Please call if you have any questions or problems. You can reach a [facility] hospitalist on duty at [facility] 24 hours a day by calling [phone] Pending Studies at Discharge: No Stand-Alone Forms: My [facility], Smoking Cessation Medications and DC Order Prescriptions: New amlodipine [Norvasc] 5 mg Tablet 2.5 mg PO QAM Qty: 30 0RF duloxetine 30 mg Capsule,Delayed Release(Dr/Ec) 30 mg PO UD Qty: 30 1RF Rx Instructions: Take Duloxetine 90mg daily Continued zonisamide [Zonegran] 100 mg Capsule 100 mg PO [facility] risperidone 1 mg Tablet 1 mg PO BID lacosamide [Vimpat] 100 mg Tablet 200 mg PO [facility] divalproex [Depakote] 250 mg tablet,delayed release (DR/EC) 250 mg PO UD Rx Instructions: take 250mg at noon and bedtime divalproex 500 mg tablet,delayed release (DR/EC) 500 mg PO QAM clobazam 10 mg tablet 5 mg PO BID Rx Instructions: PT takes 5mg at 1200pm and HS multivitamin Tablet 1 tab PO QAM cetirizine [Zyrtec] 10 mg Tablet 5 mg PO QAM PRN (Reason: allergies) famotidine 20 mg Tablet 20 mg PO BID lorazepam 0.5 mg Tablet 0.5 mg PO DAILY PRN (Reason: Anxiety) norethindrone ac-eth estradiol [03/03 (21)] 1-20 mg-mcg Tablet 1 tab PO QAM Emergen-C 1,000 mg Powder Effervescent In Packet 1 ea PO QAM clonazepam 0.5 mg tablet 0.5 mg PO BID omeprazole 40 mg capsule,delayed release(DR/EC) 40 mg PO HS duloxetine 60 mg capsule,delayed release(DR/EC) 60 mg PO DAILY Discharge Orders: Discharge Order (Routine); Ordered 09/22/22 Ordered By: Doroteo García Admission Data Admit Date/Time: 09/17/22 17:47 Attending Provider: Doroteo García Admit Provider: Marilu Peoples Primary Care Provider: Candice Ramsussen Other Providers: Marilu Peoples ; Carmne Durbin ; Melanie Luna ; Flo Michel
[2022-09-22] MEDS: DIVALPROEX DELAY RELEASE 250 MG TABEC PO SCH (12:29)
== END 2022-09-22 12:49 | disposition home or self-care (01) | DRG 913 ==
LOC: ED 14:59 → SUATTDRO 17:47 → 3N 17:47

== ENCOUNTER 2022-12-20 11:42 | Inpatient (IN) ==
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
[2022-12-20 12:59] LABS: Appearance Urine Clear (Clear); Bilirubin Urine Negative (Negative); Blood Urine Negative (Negative); Color Urine Yellow; Glucose Urine UA Negative (Negative); Ketones Urine Negative (Negative); Leukocyte Esterase Urine Negative (Negative); Nitrite Urine Negative (Negative); Protein Urine Negative (Negative); Specific Gravity Urine 1.005 (1.000-1.030); Urobilinogen Urine Negative (Negative)
[2022-12-20 13:00] LABS: Basophils # (auto) 0.02 K/uL (0.00-0.20); Basophils % (auto) 0.4 %; Eosinophils # (auto) 0.05 K/uL (0.00-0.50); Hematocrit (blood only) 41.3 % (37.0-47.0); Hemoglobin 14.4 g/dl (12.0-16.0); Immature Granulocytes # (auto) 0.01 K/uL (0.01-0.20); Immature Granulocytes % (auto) 0.2 %; Lymphocytes # (auto) 1.91 K/uL (1.20-3.40); Lymphocytes % (auto) 37.4 %; Mean Corpuscular Hemoglobin 34.5 pg (25.0-34.0); Mean Corpuscular Hgb Conc 34.9 g/dL (32.0-36.0); Mean Platelet Volume 11.2 fL (9.4-12.4); Monocytes # (auto) 0.74 K/uL (0.11-0.59); Monocytes % (auto) 14.5 %; Neutrophils # (auto) 2.38 K/uL (1.40-6.50); Neutrophils % (auto) 46.5 %; Platelet Count 181 K/uL (130-400); RDW Coefficient of Variation 13.1 % (11.5-14.5); RDW Standard Deviation 47.7 fL (36.4-46.3); Red Blood Count 4.17 M/uL (4.20-5.40); White Blood Count 5.11 K/ul (4.8-10.8)
[2022-12-20 13:15] LABS: Acetaminophen < 3 ug/ml (10-30); Salicylate < 3.0 mg/dl (3.0-30)
[2022-12-20 13:20] LABS: BUN Creatinine Ratio 15.9 (10-20); Bilirubin,Total 0.3 mg/dl (0.2-1.0); Calcium 9.6 mg/dl (8.6-10.3); Creatinine Clr Calc Pharmacy 79.9 ml/min; Est GFR (African American) 95.9 ml/min; Est GFR (Non-African American) 82.8 ml/min; Globulin 4.1 gm/dl (2.5-4.0); Potassium 3.6 mmol/L (3.5-5.1); Total Protein 8.1 gm/dl (6.0-8.3)
[2022-12-20 13:30] LABS: Thyroid Stimulating Hormone 2.593 uIu/ml (0.300-4.500)
[2022-12-20 13:40] LABS: Amphetamines+Metham, Urine Neg (Neg); Barbiturates, Urine Neg (Neg); Benzodiazepine, Urine Pos (Neg); Cocaine, Urine Neg (Neg); MDMA (Ecstacy), Urine Neg (Neg); Methadone, Urine Neg (Neg); Opiate, Urine Neg (Neg); Phencyclidine, Urine Neg (Neg)
[2022-12-20 14:41] LABS: Valproic Acid 65 mcg/ml (50-100)
[2022-12-20] MEDS ORDERED: POLYETHYLENE (MIRALAX) 17 GM PACK PO PRN (14:44)
[2022-12-20] MEDS ORDERED: ONDANSETRON INJ 2 MG/ML 2 ML VIAL IV PRN (14:44)
[2022-12-20] MEDS ORDERED: MAGNESIUM HYDROXIDE SUSP 30 ML UDC PO PRN (14:44)
[2022-12-20] MEDS ORDERED: ALUMINUM/MAGNESIUM SUSP 30 ML UDC PO PRN (14:44)
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
[2022-12-20] MEDS ORDERED: FAMOTIDINE 20 MG TAB PO PRN (16:08)
[2022-12-20] MEDS ORDERED: LORazepam 0.5 MG TAB PO PRN (16:08)
[2022-12-20] MEDS ORDERED: risperiDONE 1 MG TABLET PO SCH ×2 (21:00)
[2022-12-20] MEDS: FLUTICASONE PROPIONATE NA SPR 16 GM BTL SCH (23:09)
[2022-12-20] MEDS: ZONISAMIDE 100 MG CAPSULE PO SCH (23:16)
[2022-12-20] MEDS: LACOSAMIDE 50 MG TABLET PO SCH (23:42)
[2022-12-20] MEDS: clonazePAM 0.25 MG TAB PO SCH (23:42)
[2022-12-20] MEDS: AMOXICILLIN 875 MG TAB PO SCH (23:43)
[2022-12-20] MEDS: PANTOprazole 40 MG TAB PO SCH (23:43)
[2022-12-20] MEDS: DIVALPROEX DELAY RELEASE 250 MG TABEC PO SCH (23:44)
[2022-12-21 06:58] LABS: Hematocrit (blood only) 36.1 % (37.0-47.0); Hemoglobin 12.3 g/dl (12.0-16.0); Mean Corpuscular Hemoglobin 33.7 pg (25.0-34.0); Mean Corpuscular Hgb Conc 34.1 g/dL (32.0-36.0); Mean Corpuscular Volume 98.9 fL (80.0-100.0); Mean Platelet Volume 11.3 fL (9.4-12.4); Platelet Count 174 K/uL (130-400); RDW Coefficient of Variation 13.2 % (11.5-14.5); RDW Standard Deviation 48.3 fL (36.4-46.3); Red Blood Count 3.65 M/uL (4.20-5.40)
[2022-12-21 07:37] LABS: Albumin Globulin Ratio 0.9 (0.9-2); Albumin Level 3.2 gm/dl (3.4-5.0); BUN Creatinine Ratio 18.6 (10-20); Bilirubin,Total 0.4 mg/dl (0.2-1.0); Calcium 8.8 mg/dl (8.6-10.3); Creatinine Clr Calc Pharmacy 81.4 ml/min; Est GFR (African American) 98.6 ml/min; Est GFR (Non-African American) 85.1 ml/min; Globulin 3.4 gm/dl (2.5-4.0); Potassium 3.2 mmol/L (3.5-5.1); Total Protein 6.6 gm/dl (6.0-8.3)
[2022-12-21] MEDS: PYRIDOXINE HCL 50 MG TAB PO SCH (09:01)
[2022-12-21] MEDS: DIVALPROEX DELAY RELEASE 250 MG TABEC PO SCH ×3 (09:01→20:28)
[2022-12-21] MEDS: ZONISAMIDE 100 MG CAPSULE PO SCH ×2 (09:01→20:30)
[2022-12-21] MEDS: PSYLLIUM or GUAR GUM FIBER POWDER PACKET PO SCH (09:01)
[2022-12-21] MEDS: AMOXICILLIN 875 MG TAB PO SCH ×2 (09:01→20:28)
[2022-12-21] MEDS: clonazePAM 0.25 MG TAB PO SCH ×2 (09:26→20:52)
[2022-12-21] MEDS: amLODIPine BESYLATE 5 MG TAB PO SCH (09:38)
[2022-12-21] MEDS: LACOSAMIDE 50 MG TABLET PO SCH ×2 (09:38→20:52)
[2022-12-21] MEDS ORDERED: risperiDONE 0.5 MG TABLET PO ONE (13:24)
[2022-12-21] MEDS: PATIENT'S OWN ORAL CONTRACEPTIVE PO SCH (13:26)
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
[2022-12-21] MEDS ORDERED: POTASSIUM CHLORIDE CRTAB 20 MEQ TABCR PO STA (16:02)
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
[2022-12-21] MEDS: risperiDONE 1 MG TABLET PO SCH (20:27)
[2022-12-21] MEDS: PANTOprazole 40 MG TAB PO SCH (20:28)
[2022-12-21] MEDS: FLUTICASONE PROPIONATE NA SPR 16 GM BTL SCH (20:29)
[2022-12-22] MEDS ORDERED: COUGH DROP (SUGAR FREE) LOZ 24 LOZ/1 BOX BUCCAL ONE (01:31)
--- NOTE | 2022-12-22 05:16 | Psychiatric Progress Note ---
Date of Service December 22, 2022 Impression / Recommendations Impression 37 yo female with complex medical conditions, hx of autism (OCD) with mood lability classified as bipolar by outpatient psychaitrist, recent increase in behaviors given delay in plan to transition to more independent living setting. Discussed recent OM and that Mycoplasma can contribute to PANS in exacerbating psychosis and mood conditions in autism. 12/22/22: redirectible in hospital, I do not feel her muslim obsessions are fixed delusions at this point as she is otherwise concrete but organized, regardless, they are not driving her acting out behavior. It seems that she doesn't want to continue with [facility] and staff to review pros/cons of break with the patient and family. No evidence of tomasz. Overall, I spent a total of 58 minutes with this case, including review of chart, direct evaluation of the patient, coordination with nursing,coordination of care with hospitalist service, coordination of care with outpatient provider, interdisciplinary team meeting, and documentation. 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 Parents are guardians. Patient has a history of hospitalization in September 2022. Her refractory seizure do, spastic quadriplegic cerebral palsy, hydrocephalus with CONTRACT RECRUITER shunt presents, and need for CPAP are barriers to placement on an inpatient psychiatry unit so it is medically necessary she be housed on the medical floor for psychiatric assessment and intervention. Chief Complaint "I get worked up by cleaning." Review of Systems Notes cough, congestion, tremor as above Subjective Subjective Patient was seen & assessed and interval progress reviewed with treatment team. Liaison met with patient just after midnight last night. Patient reported not liking restrictions at home. Patient stated "I see myself as a spiritual being. I think I am the real God and I shouldn't have to follow any rules." She was redirected from hitting her thigh. She continued to deny SI. This am liaison witnessed her become childlike re: not wanting to change as parents were leaving. Patient is pleasant and OOB having reality based but concrete conversation about cleaning and how she becomes easily frustrated if she can't do something due to her CP or mainly as she "obsesses" about spots and doing it perfectly. She talked about the floors in the new apartment house she'd be staying in when they having staffing and how she would clean them. In that context, she changed topic to make a statement about worrying she'd harm Arslan if he came "to land". She has a long hx of muslim preoccupation. She has a long hx tremor denied tremor was worse on Risperdal. She attributed her sleep difficulties to URI with cough/nasal congestion, etc. Hospitalist updated re: request cough med. Physical Exam Psychiatric Orientation: alert Apperance: appropriately dressed and appropriately groomed Eye Contact: good eye contact Motor Behavior: + tremor (chin, they have discussed with neuro and psychiatrist (neither feel TD)) Speech: normal rate/rhythm/volume of speech Affect: euthymic affect Mood: + anxious mood Thought Process: + perseveration (cleaning) Thought Content: + obsessions Suicidal Thoughts: denies suicidal thoughts Homicidal Thoughts: denies homicidal thoughts Hallucinations: no auditory hallucinations and no visual hallucinations Cognition: attention grossly intact and language grossly intact Estimated Intelligence: consistent with education level Insight: + limited insight Judgment: + limited judgement Vital Signs (Past 24 Hours) Last Vital Signs Temp 36.8 C 12/21/22 22:17 Pulse 85 12/21/22 22:17 Resp 18 12/21/22 22:17 BP 138/92 12/21/22 22:17 Pulse Ox 95 12/21/22 22:17 O2 Del Method Room Air 12/21/22 22:17 Results & Data ([facility]) Laboratory Results Laboratory Results - last 24 hr 12/21/22 05:54 WBC 5.80 RBC 3.65 L Hgb 12.3 Hct 36.1 L MCV 98.9 MCH 33.7 MCHC 34.1 RDW Std Deviation 48.3 H RDW Coeff of Lulu 13.2 Plt Count 174 MPV 11.3 Sodium 140 Potassium 3.2 L Chloride 108 H Carbon Dioxide 24 Anion Gap 8 BUN 16 Creatinine 0.86 Est Cr Clr Drug Dosing 81.4 Est GFR ( Amer) 98.6 Est GFR (Non-Af Amer) 85.1 BUN/Creatinine Ratio 18.6 Glucose 90 Calcium 8.8 Total Bilirubin 0.4 AST 20 ALT 29 Alkaline Phosphatase 44 Total Protein 6.6 Albumin 3.2 L Globulin 3.4 Albumin/Globulin Ratio 0.9 Diagnostic Findings depakote level is 78 Current Inpatient Medications Current Inpatient Medications: Current Inpatient Medications Acetaminophen (Acetaminophen 325 Mg Tab) 650 mg PO Q4H PRN PRN Reason: pain/fever Stop: 01/19/23 14:43 Al Hydrox/Mg Hydrox/Simethicone (Aluminum/Magnesium Susp 30 Ml Udc) 30 ml PO Q6H PRN PRN Reason: Dyspepsia Stop: 01/19/23 14:43 Amlodipine Besylate (Amlodipine Besylate 5 Mg Tab) 2.5 mg PO QAM [facility] Stop: 01/20/23 08:59 Last Admin: 12/21/22 09:38 Dose: 2.5 mg Amoxicillin (Amoxicillin 875 Mg Tab) 875 mg PO BID [facility]; Protocol Stop: 12/26/22 08:00 Last Admin: 12/21/22 20:28 Dose: 875 mg Clobazam (Clobazam) 1 each PO BID@1200,2100 [facility] Stop: 01/20/23 20:59 Last Admin: 12/21/22 20:53 Dose: 1 each Clonazepam (Clonazepam 0.25 Mg Tab) 0.25 mg PO AMHS [facility] Stop: 01/19/23 20:59 Last Admin: 12/21/22 20:52 Dose: 0.25 mg Divalproex Sodium (Divalproex Delay Release 250 Mg Tabec) 250 mg PO DAILY@1200 [facility] Stop: 01/20/23 11:59 Last Admin: 12/21/22 13:26 Dose: 250 mg Divalproex Sodium (Divalproex Delay Release 250 Mg Tabec) 500 mg PO BID [facility] Stop: 01/19/23 20:59 Last Admin: 12/21/22 20:28 Dose: 500 mg Famotidine (Famotidine 20 Mg Tab) 20 mg PO BID PRN PRN Reason: HEARTBURN/INDIGESTION Stop: 01/19/23 16:07 Fluticasone Propionate (Fluticasone Propionate Na Spr 16 Gm Btl) 1 sprays NA HS [facility] Stop: 01/19/23 20:59 Last Admin: 12/21/22 20:29 Dose: 1 sprays Lacosamide (Lacosamide 50 Mg Tablet) 200 mg PO BID [facility] Stop: 01/19/23 20:59 Last Admin: 12/21/22 20:52 Dose: 200 mg Lorazepam (Lorazepam 0.5 Mg Tab) 0.5 mg PO DAILY PRN PRN Reason: Anxiety Stop: 01/19/23 16:07 Magnesium Hydroxide (Magnesium Hydroxide Susp 30 Ml Udc) 30 ml PO Q6H PRN PRN Reason: Constipation Stop: 01/19/23 14:43 Miscellaneous (Patient's Own Oral Contraceptive) 1 each PO DAILY [facility]; Protocol Stop: 01/20/23 12:59 Last Admin: 12/21/22 13:26 Dose: 1 each Ondansetron HCl (Ondansetron Inj 2 Mg/Ml 2 Ml Vial) 4 mg IV Q6H PRN PRN Reason: Nausea Stop: 01/19/23 14:43 Pantoprazole Sodium (Pantoprazole 40 Mg Tab) 40 mg PO HS [facility] Stop: 01/19/23 20:59 Last Admin: 12/21/22 20:28 Dose: 40 mg Polyethylene Glycol (Polyethylene (Miralax) 17 Gm Pack) 17 gm PO DAILY PRN PRN Reason: Constipation Stop: 01/19/23 14:43 Psyllium Hydrophilic Mucilloid (Psyllium Or Guar Gum Fiber Powder Packet) 1 pkt PO QAM [facility] Stop: 01/20/23 08:59 Last Admin: 12/21/22 09:01 Dose: 1 pkt Pyridoxine HCl (Pyridoxine Hcl 50 Mg Tab) 100 mg PO QAM [facility] Stop: 01/20/23 08:59 Last Admin: 12/21/22 09:01 Dose: 100 mg Risperidone (Risperidone 1 Mg Tablet) 1 mg PO TID [facility] Stop: 01/20/23 20:59 Last Admin: 12/21/22 20:27 Dose: 1 mg Zonisamide (Zonisamide 100 Mg Capsule) 100 mg PO AMHS [facility] Stop: 01/19/23 20:59 Last Admin: 12/21/22 20:30 Dose: 100 mg Post Discharge Appointments Primary Care Physician Name Of Family Doctor/PCP: Dr. Candice Rasmussen @[facility]
[2022-12-22 06:18] LABS: Basophils # (auto) 0.02 K/uL (0.00-0.20); Basophils % (auto) 0.4 %; Eosinophils # (auto) 0.11 K/uL (0.00-0.50); Hematocrit (blood only) 36.1 % (37.0-47.0); Hemoglobin 12.5 g/dl (12.0-16.0); Immature Granulocytes # (auto) 0.01 K/uL (0.01-0.20); Immature Granulocytes % (auto) 0.2 %; Lymphocytes # (auto) 2.35 K/uL (1.20-3.40); Lymphocytes % (auto) 42.5 %; Mean Corpuscular Hgb Conc 34.6 g/dL (32.0-36.0); Mean Corpuscular Volume 98.1 fL (80.0-100.0); Mean Platelet Volume 11.2 fL (9.4-12.4); Monocytes # (auto) 0.73 K/uL (0.11-0.59); Monocytes % (auto) 13.2 %; Neutrophils # (auto) 2.31 K/uL (1.40-6.50); Neutrophils % (auto) 41.7 %; Platelet Count 187 K/uL (130-400); Red Blood Count 3.68 M/uL (4.20-5.40); White Blood Count 5.53 K/ul (4.8-10.8)
[2022-12-22 06:37] LABS: BUN Creatinine Ratio 20.8 (10-20); Calcium 9.2 mg/dl (8.6-10.3); Creatinine Clr Calc Pharmacy 92.9 ml/min; Est GFR (African American) 112.7 ml/min; Est GFR (Non-African American) 97.3 ml/min; Potassium 4.1 mmol/L (3.5-5.1)
[2022-12-22] MEDS: ACETAMINOPHEN 325 MG TAB PO PRN (06:41)
[2022-12-22] MEDS: LACOSAMIDE 50 MG TABLET PO SCH ×2 (09:29→21:14)
[2022-12-22] MEDS: DIVALPROEX DELAY RELEASE 250 MG TABEC PO SCH ×3 (09:30→20:39)
[2022-12-22] MEDS: amLODIPine BESYLATE 5 MG TAB PO SCH (09:31)
[2022-12-22] MEDS: ZONISAMIDE 100 MG CAPSULE PO SCH ×2 (09:31→20:40)
[2022-12-22] MEDS: AMOXICILLIN 875 MG TAB PO SCH ×2 (09:31→20:39)
[2022-12-22] MEDS: risperiDONE 1 MG TABLET PO SCH ×3 (09:31→20:41)
[2022-12-22] MEDS: PYRIDOXINE HCL 50 MG TAB PO SCH (09:32)
[2022-12-22] MEDS: PATIENT'S OWN ORAL CONTRACEPTIVE PO SCH (09:33)
[2022-12-22] MEDS: PSYLLIUM or GUAR GUM FIBER POWDER PACKET PO SCH (09:33)
[2022-12-22] MEDS: clonazePAM 0.25 MG TAB PO SCH ×2 (09:40→20:48)
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
[2022-12-22] MEDS: BENZONATATE 100 MG CAPSULE PO PRN ×2 (16:17→23:13)
[2022-12-22] MEDS: PANTOprazole 40 MG TAB PO SCH (20:40)
[2022-12-22] MEDS: FLUTICASONE PROPIONATE NA SPR 16 GM BTL SCH (20:40)
[2022-12-23] MEDS: PSYLLIUM or GUAR GUM FIBER POWDER PACKET PO SCH (08:03)
[2022-12-23] MEDS: ZONISAMIDE 100 MG CAPSULE PO SCH ×2 (08:04→21:23)
[2022-12-23] MEDS: clonazePAM 0.25 MG TAB PO SCH ×2 (08:04→21:22)
[2022-12-23] MEDS: PYRIDOXINE HCL 50 MG TAB PO SCH (08:04)
[2022-12-23] MEDS: LACOSAMIDE 50 MG TABLET PO SCH ×2 (08:04→21:14)
[2022-12-23] MEDS: DIVALPROEX DELAY RELEASE 250 MG TABEC PO SCH ×3 (08:04→21:22)
[2022-12-23] MEDS: BENZONATATE 100 MG CAPSULE PO PRN ×2 (08:04→14:01)
[2022-12-23] MEDS: risperiDONE 1 MG TABLET PO SCH ×3 (08:04→21:22)
[2022-12-23] MEDS: AMOXICILLIN 875 MG TAB PO SCH ×2 (08:04→21:14)
[2022-12-23] MEDS: amLODIPine BESYLATE 5 MG TAB PO SCH (08:05)
[2022-12-23] MEDS: PATIENT'S OWN ORAL CONTRACEPTIVE PO SCH (08:06)
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
[2022-12-23] MEDS: CETIRIZINE HCL 10 MG TABLET PO SCH (13:56)
[2022-12-23 15:22] LABS: 7-Aminoclonaz, Confirm NEGATIVE ng/mL (<25); Hydro-Alp Ur, GC/MS NEGATIVE ng/mL (<25); Hydroxyethylflurazepam, Conf NEGATIVE ng/mL (<50); Hydroxymidazolam Ur, GC/MS NEGATIVE ng/mL (<50); Hydroxytriazolam NEGATIVE ng/mL (<50); Lorazepam, Ur GC/MS NEGATIVE ng/mL (<50); Nordiazepam, Confirm NEGATIVE ng/mL (<50); Oxazepam Ur, GC/MS NEGATIVE ng/mL (<50); Temazepam, Confirm NEGATIVE ng/mL (<50)
[2022-12-23] MEDS: PANTOprazole 40 MG TAB PO SCH (21:22)
[2022-12-23] MEDS: FLUTICASONE PROPIONATE NA SPR 16 GM BTL SCH (21:22)
[2022-12-24] MEDS: ACETAMINOPHEN 325 MG TAB PO PRN ×3 (03:14→20:41)
[2022-12-24] MEDS: risperiDONE 1 MG TABLET PO SCH ×3 (09:04→20:42)
[2022-12-24] MEDS: ZONISAMIDE 100 MG CAPSULE PO SCH ×2 (09:04→20:42)
[2022-12-24] MEDS: PATIENT'S OWN ORAL CONTRACEPTIVE PO SCH (09:04)
[2022-12-24] MEDS: PYRIDOXINE HCL 50 MG TAB PO SCH (09:04)
[2022-12-24] MEDS: PSYLLIUM or GUAR GUM FIBER POWDER PACKET PO SCH (09:05)
[2022-12-24] MEDS: CETIRIZINE HCL 10 MG TABLET PO SCH (09:05)
[2022-12-24] MEDS: DIVALPROEX DELAY RELEASE 250 MG TABEC PO SCH ×3 (09:05→20:42)
[2022-12-24] MEDS: amLODIPine BESYLATE 5 MG TAB PO SCH (09:06)
[2022-12-24] MEDS: clonazePAM 0.25 MG TAB PO SCH ×2 (09:06→20:41)
[2022-12-24] MEDS: LACOSAMIDE 50 MG TABLET PO SCH ×2 (09:06→20:42)
[2022-12-24] MEDS: AMOXICILLIN 875 MG TAB PO SCH ×2 (09:06→20:41)
[2022-12-24] MEDS: BENZONATATE 100 MG CAPSULE PO PRN ×2 (09:18→20:52)
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
--- NOTE | 2022-12-24 15:17 | Psychiatric Progress Note ---
Date of Service December 24, 2022 Impression / Recommendations Impression Agree with assessment per Dr. Luna: 37 yo woman with complex medical conditions, hx of autism, OCD with mood lability classified as bipolar by outpatient psychiatrist, recent increase in behaviors given delay in plan to transition to more independent living setting. Discussed recent OM and that Mycoplasma can contribute to PANS in exacerbating psychosis and mood conditions in autism. 12/24/22: Stable mood and no discussion of yarsanism delusions today. Biggest challenge remains her selective aggression/irritability toward her parents in the home environment and high caregiving needs which is becoming increasingly unsustainable for them. Her parents feel unsafe taking her home/unable to continue to provide the level of care that she needs. They have requested possible other placement options, will work to schedule interdisciplinary meeting with CM, outpatient [place], Randi's parents to examine any possible options. Overall, I spent a total of 35 minutes with this case, including review of c smith, direct evaluation of the patient, coordination with nursing, and documentation. 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 Parents are guardians. Patient has a history of hospitalization in September 2022. Her refractory seizure do, spastic quadriplegic cerebral palsy, hydrocephalus with WAN SUPPORT SPECIALIST shunt presents, and need for CPAP are barriers to placement on an inpatient psychiatry unit so it is medically necessary she be housed on the medical floor for psychiatric assessment and intervention. Chief Complaint "Good, tired because I exercised this morning". Subjective Subjective Patient was seen & assessed and interval progress reviewed. Randi reports good interaction with her parents this morning and liked exercising and stretching. States "I don't need more help after this" in describing her desire to avoid going somewhere other than home after discharge. Reviewed concerns about her irritability at home and aggression toward her mother especially. She states she thinks she could control this better by "using my coping skills". Denies any side effects from medication adjustment. Physical Exam Psychiatric Orientation: alert Apperance: appropriately dressed and appropriately groomed Eye Contact: good eye contact Motor Behavior: + tremor (chin, they have discussed with neuro and psychiatrist (neither feel TD)) Speech: normal rate/rhythm/volume of speech Affect: + constricted affect Mood: + anxious mood Thought Process: + concrete thought process Thought Content: reality based without delusions Suicidal Thoughts: denies suicidal thoughts Homicidal Thoughts: denies homicidal thoughts Hallucinations: no auditory hallucinations and no visual hallucinations Cognition: attention grossly intact and language grossly intact Estimated Intelligence: consistent with education level Insight: + limited insight Judgment: + limited judgement Vital Signs (Past 24 Hours) Last Vital Signs Temp 36.7 C 12/24/22 15:00 Pulse 93 H 12/24/22 15:00 Resp 17 12/24/22 15:00 BP 133/80 12/24/22 15:00 Pulse Ox 100 12/24/22 15:00 O2 Del Method Room Air 12/24/22 15:00 Results & Data ([facility]) Laboratory Results Laboratory Results - last 24 hr 12/20/22 12:25 U OH-Alprazolam Confrm NEGATIVE 7-Amino Clonazepam NEGATIVE Ur Nordiazepam Confirm NEGATIVE U OH-ethylflurazepam NEGATIVE U Lorazepam Cnf GC/MS NEGATIVE U Oxazepam Confm GC/MS NEGATIVE Ur Temazepam Confirm NEGATIVE U OH-Triazolam Confirm NEGATIVE U OH-Midazolam Confirm NEGATIVE Drug Screen Comment SEE NOTE Current Inpatient Medications Current Inpatient Medications: Current Inpatient Medications Acetaminophen (Acetaminophen 325 Mg Tab) 650 mg PO Q4H PRN PRN Reason: pain/fever Stop: 01/19/23 14:43 Last Admin: 12/24/22 06:53 Dose: 650 mg Al Hydrox/Mg Hydrox/Simethicone (Aluminum/Magnesium Susp 30 Ml Udc) 30 ml PO Q6H PRN PRN Reason: Dyspepsia Stop: 01/19/23 14:43 Amlodipine Besylate (Amlodipine Besylate 5 Mg Tab) 5 mg PO QAM [facility] Stop: 01/23/23 08:59 Last Admin: 12/24/22 09:06 Dose: 5 mg Amoxicillin (Amoxicillin 875 Mg Tab) 875 mg PO BID [facility]; Protocol Stop: 12/26/22 08:00 Last Admin: 12/24/22 09:06 Dose: 875 mg Benzonatate (Benzonatate 100 Mg Capsule) 100 mg PO TID PRN PRN Reason: Cough Stop: 01/21/23 20:59 Last Admin: 12/24/22 09:18 Dose: 100 mg Cetirizine HCl (Cetirizine Hcl 10 Mg Tablet) 10 mg PO DAILY [facility] Stop: 01/24/23 08:59 Clobazam (Clobazam) 1 each PO BID@1200,2100 [facility] Stop: 01/20/23 20:59 Last Admin: 12/24/22 12:24 Dose: 1 each Clonazepam (Clonazepam 0.25 Mg Tab) 0.25 mg PO AMHS [facility] Stop: 01/19/23 20:59 Last Admin: 12/24/22 09:06 Dose: 0.25 mg Divalproex Sodium (Divalproex Delay Release 250 Mg Tabec) 250 mg PO DAILY@1200 [facility] Stop: 01/20/23 11:59 Last Admin: 12/24/22 12:24 Dose: 250 mg Divalproex Sodium (Divalproex Delay Release 250 Mg Tabec) 500 mg PO BID [facility] Stop: 01/19/23 20:59 Last Admin: 12/24/22 09:05 Dose: 500 mg Famotidine (Famotidine 20 Mg Tab) 20 mg PO BID PRN PRN Reason: HEARTBURN/INDIGESTION Stop: 01/19/23 16:07 Fluticasone Propionate (Fluticasone Propionate Na Spr 16 Gm Btl) 1 sprays NA HS [facility] Stop: 01/19/23 20:59 Last Admin: 12/23/22 21:22 Dose: 1 sprays Lacosamide (Lacosamide 50 Mg Tablet) 200 mg PO BID [facility] Stop: 01/19/23 20:59 Last Admin: 12/24/22 09:06 Dose: 200 mg Lorazepam (Lorazepam 0.5 Mg Tab) 0.5 mg PO DAILY PRN PRN Reason: Anxiety Stop: 01/19/23 16:07 Last Admin: 12/22/22 23:13 Dose: 0.5 mg Magnesium Hydroxide (Magnesium Hydroxide Susp 30 Ml Udc) 30 ml PO Q6H PRN PRN Reason: Constipation Stop: 01/19/23 14:43 Miscellaneous (Patient's Own Oral Contraceptive) 1 each PO DAILY [facility]; Protocol Stop: 01/20/23 12:59 Last Admin: 12/24/22 09:04 Dose: 1 each Ondansetron HCl (Ondansetron Inj 2 Mg/Ml 2 Ml Vial) 4 mg IV Q6H PRN PRN Reason: Nausea Stop: 01/19/23 14:43 Pantoprazole Sodium (Pantoprazole 40 Mg Tab) 40 mg PO HS [facility] Stop: 01/19/23 20:59 Last Admin: 12/23/22 21:22 Dose: 40 mg Polyethylene Glycol (Polyethylene (Miralax) 17 Gm Pack) 17 gm PO DAILY PRN PRN Reason: Constipation Stop: 01/19/23 14:43 Psyllium Hydrophilic Mucilloid (Psyllium Or Guar Gum Fiber Powder Packet) 1 pkt PO QAM [facility] Stop: 01/20/23 08:59 Last Admin: 12/24/22 09:05 Dose: 1 pkt Pyridoxine HCl (Pyridoxine Hcl 50 Mg Tab) 100 mg PO QAM [facility] Stop: 01/20/23 08:59 Last Admin: 12/24/22 09:04 Dose: 100 mg Risperidone (Risperidone 1 Mg Tablet) 1 mg PO TID [facility] Stop: 01/20/23 20:59 Last Admin: 12/24/22 12:24 Dose: 1 mg Zonisamide (Zonisamide 100 Mg Capsule) 100 mg PO AMHS [facility] Stop: 01/19/23 20:59 Last Admin: 12/24/22 09:04 Dose: 100 mg Post Discharge Appointments Primary Care Physician Name Of Family Doctor/PCP: Dr. Candice Rasmussen @[facility]
--- NOTE | 2022-12-24 15:22 | XRay Report ---
XR chest 1V portable HISTORY: Shortness of breath. r/o chf COMPARISON: Chest 04/03/2020. FINDINGS: There are low lung volumes. No pneumothorax. No pleural effusions. The cardiac silhouette r emains enlarged. There is mild central pulmonary vascular congestion without overt edema. No new foca l lung consolidations to suggest a pneumonia. Thoracolumbar spinal rods are again noted. 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 IMPRESSION: Stable cardiomegaly and mild central pulmonary vascular congestion without overt edema. ACT 112: Negative or not required by law. Electronically signed by: Akil Shannon M.D. 12/24/2022 3:21 PM
--- OUTSIDE RECORDS SUMMARY | 2022-12-24 17:23 | External Medical Summary | Summary of Care ---
Author Name Unknown Organization [facility] Address [address] [place] [address] Phone [phone] Care Team Providers Care Compliance Director Name Role Phone Candice Rasmussen Primary Care Provider Reason for Visit * Reason Comments Cold Symptoms Encounter Details Date Type Department Care Team (Latest Contact Info) Description 12/16/2022 11:15 AM EDT Convenient Care Visit [facility] [address] [place] [address] Margy Hernandez PA-C [address] [place] [phone] Upper respiratory tract infection, unspecified type*; Non-recurrent acute suppurative otitis media of left ear without spontaneous rupture of tympanic membrane Allergies Active Allergy Reactions Criticality Noted Date Comments Ketoconazole Rash Medium 07/17/2018 documented as of this encounter (statuses as of 12/16/2022) Medications Medication Sig Dispensed Refills Start Date End Date Status ZONISAMIDE 100 MG PO CAPS 1 capsule twice a day 0 Active nystatin 199772 UNIT/GM cream Apply topically to affected area 2 times a day. To affacted area for two weeks. 15 g 2 6 Active nystatin (NYSTOP) powder Apply topically to affected area 3 times a day. Sprinkle over affected area. 1 Bottle 0 6 Active Pyridoxine HCl 100 MG Oral Tablet Take by mouth once. In the morning 0 Active cetirizine (ZYRTEC ALLERGY) 10 MG Tablet Take 1 Tab by mouth daily. 0 9 Active Additional Information Patient taking differently:10 mg Oral Daily(AM),1/2 a tablet in the morning, Reported on 05/09/2022 Polyethylene Glycol 3350 17 GM Oral Packet Take 1 Packet by mouth every other day as needed for Constipation. 0 Active Bisacodyl 10 MG Rectal Suppository (Dulcolax)Indicat ions:Constipation , unspecified constipation type Administer 1 Suppository into the rectum daily as needed for Constipation. Do not use for more than 1 week. 20 Suppository 1 1 Active LORazepam 0.5 MG Oral Tablet Take 0.5 Tablets by mouth as needed. 0 Active Ondansetron 4 MG Oral Tablet DisintegratingInd ications:Nausea without vomiting,Epigastr ic pain Place on tongue 1 Tablet every 8 hours as needed for Nausea. dissolve on tongue. 20 Tablet 0 2 Active DULoxetine HCl 60 MG Oral Capsule Delayed Release Particles (Cymbalta) Take 1 Capsule by mouth in the morning. Do not cut, crush or chew. 30 Capsule 5 2 Active risperiDONE 1 MG Oral Tablet Take 1 Tablet by mouth in the morning and 1 Tablet before bedtime. 0 2 Active cloBAZam 10 MG Oral Tablet (Onfi) Take 0.5 Tablets by mouth in the morning. 0 2 Active Divalproex Sodium 250 MG Oral Tablet Delayed Release (Depakote DR) Take 3 tablets by mouth in the morning, 1 at noon and 1 tablet by mouth at night 0 3 Active Lacosamide 200 MG Oral Tablet (Vimpat) Take 1 tablet (200 mg total) by mouth 3 (three) times daily. 0 3 Active Omeprazole 40 MG Oral Capsule Delayed Release (PriLOSEC) Take 1 Capsule by mouth in the morning. 90 Capsule 3 3 Active Junel 03/03 1-20 MG-MCG Oral Tablet (Norethindrone Acet-Ethinyl Est)Indications:A llergic drug rash TAKE 1 TABLET BY MOUTH DAILY FOR 3 WEEKS THEN START NEXT PACK, CONTINUOUS USE 84 Tablet 1 3 Active clonazePAM 0.5 MG Oral Tablet (KlonoPIN)Indicat ions:Spastic hemiplegic cerebral palsy (HCC),Partial idiopathic epilepsy with seizures of localized onset, not intractable, without status epilepticus (HCC) Take 0.5 Tablets by mouth in the morning and 0.5 Tablets before bedtime. Per neurology. 30 Tablet 0 3 Active Meclizine HCl 12.5 MG Oral Tablet (Antivert)Indicat ions:Benign paroxysmal vertigo, unspecified laterality Take 1 Tablet by mouth 3 times a day as needed for Dizziness. 30 Tablet 0 3 Active amLODIPine Besylate 5 MG Oral Tablet (Norvasc) Take 1 Tablet by mouth in the morning. 90 Tablet 3 3 Active Doxycycline Monohydrate 100 MG Oral Tablet Take 1 Tablet by mouth in the morning and 1 Tablet before bedtime. 0 Active Amoxicillin 875 MG Oral TabletIndications :Non-recurrent acute suppurative otitis media of left ear without spontaneous rupture of tympanic membrane Take 1 Tablet by mouth in the morning and 1 Tablet before bedtime. Do all this for 10 days. 20 Tablet 0 3 12/27/19 23 Active Amoxicillin-Pot Clavulanate 875-125 MG Oral Tablet Take 1 Tablet by mouth in the morning and 1 Tablet before bedtime. 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 Benign neoplasm of pituitary gland 10/17/2019 Hyperprolactinemia 07/16/2018 Cutaneous candidiasis 05/24/2015 Sprain of left wrist 12/30/2014 Epilepsy Depression Mood disorder OCD (obsessive compulsive disorder) Hydrocephalus CP (cerebral palsy) documented as of this encounter (statuses as of 12/16/2022) Resolved Problems Problem Noted Date Diagnosed Date Resolved Date Prolonged Q-T interval on ECG 03/30/2020 05/31/2022 Epilepsy 01/08/2017 11/08/2017 documented as of this encounter (statuses as of 12/16/2022) Immunizations Name Administration Dates Next Due COVID-19 mRNA, LNP-s, No Pre serve, 2-Dose Series (Pfizer) 03/29/2020,03/05/2020 COVID-19, mRNA, LNP-s, PF, B ooster, 100mcg/0.5mg (Moderna) 01/13/2022 SEASONAL INFLUENZA, PF, 6 M & Above, IM , (FLULAVAL or FLUZONE) 12/27/2021,10/17/2019,11/05/2018, 0 18,03/20/2017 TDAP (age 10 and older)(Boostrix) 04/24/2012 documented as of this encounter Social History Tobacco Use Types Packs/Day Years Used Date Smoking Tobacco: Never Smokeless Tobacco: Never Tobacco Cessation:Counseling Given: Not Answered Alcohol Use Standard Drinks/Week Comments No 0 (1 standard drink = 0.6 oz pur e alcohol) PHQ-2 Answer Date Recorded PHQ-2 Score 0 10/14/2019 Sex and Gender Information Value Date Recorded Sex Assigned at Female 05/01/2018 1:06 PM EDT Gender Identity Female 05/01/2018 1:06 PM EDT Sexual Orientation Straight 05/01/2018 1: 06 PM EDT Job Start Date Occupation Industry Not on file Not on file Not on file documented as of this encounter Last Filed Vital Signs Vital Sign Reading Time Taken Comments Blood Pressure 130/80 12/16/2022 11:47 AM EDT Pulse 116 12/16/2022 11:47 AM EDT Temperature 36.8 C (98.2 F) 12/16/2022 11:47 AM E DT Respiratory Rate 16 12/16/2022 11:47 AM EDT Oxygen Saturation 99% 12/16/2022 11:47 AM EDT Inhaled Oxygen Concentration - - Weight 81.3 kg (179 lb 3.2 oz) 12/16/2022 11:47 AM EDT Height 152.4 cm (5') 12/16/2022 11:47 AM EDT Body Mass Index 35 12/16/2022 11:47 AM EDT documented in this encounter Patient Instructions * Patient Instructions* Margy Hernandez PA-C - 12/16/2022 12:20 PM EDT Take all medications as prescribed You can use one medication from each of the following types for symptom relief: Nasal [place]: Flonase, Nasacort, OR Nasonex, in addition to one of these medicated nasal spray use saline nasal spray to avoid dryness and thin out mucous. Two pumps in each nostril daily. Try to keepin sinuses as long as possible. OTC antihistamine: (claritin, zyrtec, xyzal or rolando), one daily OTC decongestants: Sudafed, Mucinex-D (get from behind pharmacy counter, you have to show your ID) IF BEING TREATED FOR BLOOD PRESSURE OR KIDNEY DISEASE USE CORICIDIN HBP INSTEAD Continue supportive measures-- Drink plenty of fluids, rest, cool mist humidifier, hot showers. When you have a sore throat: Dry up the drip! Use an antihistamine (cetirizine, loratidine) to help with post nasal drip, or decongestants if you are over the age of 12. Continue supportive measures - rest, push fluids, as needed acetaminophen/ibuprofen per package directions for pain/fevers, salt water gargles It is important to swallow frequently (every 30 seconds). Recommend a clear, non-alcoholic liquid such as water or most fruit juices. Lozenges do not improve the overall health/pain in the termite control service representative,as they utilize infected mucus to soothe the back of the throat. Recommend avoidance of citrus juices because these can be astringent/irritating. Recommend avoidance of dairy as this makes mucus thick and sticky. Popsicles and ice are good for people who prefer cold, and tea is good for people who prefer warm. You may also use ibuprofen or acetaminophen OTC for relief of pain or fevers. If you were Prescribed antibiotics, be sure to finish entire course even if you are feeling better. You can take florajen, a probiotic if you get nausea/diarrhea with antibiotics. Recommend taking them in between doses of antibiotic for max efficacy. Follow up with PCP within 5-7 day(s) if no improvement, sooner if worse. Go to the ED if any new or severe symptoms appear. documented in this encounter Progress Notes * Margy Hernandez PA-C - 12/16/2022 11:53 AM EDT Olivia Lawrence is a 37 year old female. who presents with upper and lower respiratory symptoms for 1 day(s) Patient was accompanied by Father. HPI Signs and Symptoms include: cough, congestion, body aches Severity of Symptoms: Moderate Timing (how often does it occur): Constant Modifying Factors (what was done since onset of symptoms): neti pot/nasal spray Constitutional: no fevers, + chills, sweats, fatigue Last test for COVID was at home and neg Patient has not been positive for COVID in the last 90 days ROS All others negative other than those noted in HPI Recent illnesses in household: No HISTORY Patient Active Problem List Diagnosis Code Epilepsy ([facility]) G40.909 Depression F32.A Mood disorder ([facility]) F39 OCD (obsessive compulsive disorder) F42.9 Hydrocephalus ([facility]) G91.9 CP (cerebral palsy) ([facility]) G80.9 Sprain of left wrist S63.502A Cutaneous candidiasis B37.2 Hyperprolactinemia ([facility]) E22.1 Spastic quadriplegic cerebral palsy ([facility]) G80.0 Benign neoplasm of pituitary gland ([facility]) D35.2 Other hydrocephalus ([facility]) G91.8 Spastic hemiplegic cerebral palsy ([facility]) G80.2 Partial idiopathic epilepsy with seizures of localized onset, not intractable, without status epilepticus ([facility]) G40.009 History of prolonged Q-T interval on ECG Z87.898 Periorbital cellulitis of left eye L03.213 Rash and nonspecific skin eruption R21 Current Outpatient Medications Medication Sig Dispense Refill Amoxicillin 875 MG Oral Tablet Take 1 Tablet by mouth in the morning and 1 Tablet before bedtime. Do all this for 10 days. 20 Tablet 0 ZONISAMIDE 100 MG PO CAPS 1 capsule twice a day nystatin 408277 UNIT/GM cream Apply topically to affected area 2 times a day. To affacted area for two weeks. 15 g 2 nystatin (NYSTOP) powder Apply topically to affected area 3 times a day. Sprinkle over affected area. 1 Bottle 0 Pyridoxine HCl 100 MG Oral Tablet Take by mouth once. In the morning cetirizine (ZYRTEC ALLERGY) 10 MG Tablet Take 1 Tab by mouth daily. (Patient taking differently: Take 1 Tablet by mouth in the morning. 1/2 a tablet in the morning.) Polyethylene Glycol 3350 17 GM Oral Packet Take 1 Packet by mouth every other day as needed for Constipation. Bisacodyl 10 MG Rectal Suppository (Dulcolax) Administer 1 Suppository into the rectum daily as needed for Constipation. Do not use for more than 1 week. 20 Suppository 1 LORazepam 0.5 MG Oral Tablet Take 0.5 Tablets by mouth as needed. Ondansetron 4 MG Oral Tablet Disintegrating Place on tongue 1 Tablet every 8 hours as needed for Nausea. dissolve on tongue. 20 Tablet 0 DULoxetine HCl 60 MG Oral Capsule Delayed Release Particles (Cymbalta) Take 1 Capsule by mouth in the morning. Do not cut, crush or chew. 30 Capsule 5 risperiDONE 1 MG Oral Tablet Take 1 Tablet by mouth in the morning and 1 Tablet before bedtime. cloBAZam 10 MG Oral Tablet (Onfi) Take 0.5 Tablets by mouth in the morning. Divalproex Sodium 250 MG Oral Tablet Delayed Release (Depakote DR) Take 3 tablets by mouth in the morning, 1 at noon and 1 tablet by mouth at night Lacosamide 200 MG Oral Tablet (Vimpat) Take 1 tablet (200 mg total) by mouth 3 (three) times daily. Omeprazole 40 MG Oral Capsule Delayed Release (PriLOSEC) Take 1 Capsule by mouth in the morning. 90Capsule 3 03/03 1-20 MG-MCG Oral Tablet (Norethindrone Acet-Ethinyl Est) TAKE 1 TABLET BY MOUTH DAILY FOR 3 WEEKS THEN START NEXT PACK, CONTINUOUS USE 84 Tablet 1 clonazePAM 0.5 MG Oral Tablet (KlonoPIN) Take 0.5 Tablets by mouth in the morning and 0.5 Tablets before bedtime. Per neurology. 30 Tablet 0 Meclizine HCl 12.5 MG Oral Tablet (Antivert) Take 1 Tablet by mouth 3 times a day as needed for Dizziness. 30 Tablet 0 amLODIPine Besylate 5 MG Oral Tablet (Norvasc) Take 1 Tablet by mouth in the morning. 90 Tablet 3 Doxycycline Monohydrate 100 MG Oral Tablet Take 1 Tablet by mouth in the morning and 1 Tablet before bedtime. No current facility-administered medications for this visit. Past Medical History: Diagnosis Date CP (cerebral palsy) (HCC) Depression Epilepsy (HCC) Hydrocephalus (HCC) Mood disorder (HCC) OCD (obsessive compulsive disorder) Prolonged Q-T interval on ECG 03/30/2020 Past Surgical History: Procedure Laterality Date BRAIN CANAL SHUNT FOR DRAIN/INJECT COLONOSCOPY, DIAGNOSTIC (RECTUM) 05/26/2021 benign proximal hyperplastic polyp, repeat 5 yrs / [facility] EGD, FLEXIBLE, DIAGNOSTIC 05/26/2021 normal / [facility] REVISE PALSY FOREARM/WRIST TENDON SPINAL FUSION, 4-7 VERT, ANTERIOR scoliosis Review of patient's allergies indicates: Allergen Reactions Ketoconazole Rash Family History Problem Relation Age of Onset Colon polyps Mother Colon polyps Father Colon cancer Grandmother (Maternal) Breast Cancer No significant family history Family Status Relation Status Mo (Not Specified) Fa (Not Specified) MGMA (Not Specified) No history (Not Specified) Social History Socioeconomic History Marital status: Single Spouse name: Not on file Number of children: Not on file Years of education: Not on file Highest education level: Not on file Occupational History Not on file Tobacco Use Smoking status: Never Smokeless tobacco: Never Vaping Use Vaping Use: Never used Substance and Sexual Activity Alcohol use: No Drug use: No Sexual activity: Not on file Other Topics Concern Not on file Social History Narrative Not on file Social Determinants of Health Financial Resource Strain: Not on file Food Insecurity: Not on file Transportation Needs: Not on file Physical Activity: Not on file Stress: Not on file Social Connections: Not on file Intimate Partner Violence: Not on file Housing Stability: Not on file OBJECTIVE BP 130/80 | Pulse 116 | Temp 36.8 C (98.2 F) (Tympanic) | Resp 16 | Ht 1.524 m (5') | Wt 81.3 kg (179 lb 3.2 oz) | SpO2 99% | No | BMI 35.00 kg/m | BSA 1.86 m Physical Exam: General Appearance: awake, alert, no apparent distress, shivering HEENT: perrl and eomi Tm right: clear, normal light reflex, no erythema Tm left: clear, normal light reflex, +erythema with suppurative fluid posteriorly oral pharynx clear, mucus membranes moist + red and irritated pharynx +maxillary sinus tenderness or facial pain to percussion + turbinate engorgement and discharge Neck: normal, supple, + adenopathy Respiratory: clear to auscultation, no rhonchi, no wheezes and no crackles Heart: regular rate, regular rhythm, no murmurs , no rubs and no gallops Skin: skin color, texture, turgor are normal, no rashes or significant lesions Patient instructions: Patient Instructions Take all medications as prescribed You can use one medication from each of the following types for symptom relief: Nasal [place]: Flonase, Nasacort, OR Nasonex, in addition to one of these medicated nasal spray use saline nasal spray to avoid dryness and thin out mucous. Two pumps in each nostril daily. Try to keepin sinuses as long as possible. OTC antihistamine: (claritin, zyrtec, xyzal or rolando), one daily OTC decongestants: Sudafed, Mucinex-D (get from behind pharmacy counter, you have to show your ID) IF BEING TREATED FOR BLOOD PRESSURE OR KIDNEY DISEASE USE CORICIDIN HBP INSTEAD Continue supportive measures-- Drink plenty of fluids, rest, cool mist humidifier, hot showers. When you have a sore throat: Dry up the drip! Use an antihistamine (cetirizine, loratidine) to help with post nasal drip, or decongestants if you are over the age of 12. Continue supportive measures - rest, push fluids, as needed acetaminophen/ibuprofen per package directions for pain/fevers, salt water gargles It is important to swallow frequently (every 30 seconds). Recommend a clear, non-alcoholic liquid such as water or most fruit juices. Lozenges do not improve the overall health/pain in the termite control service representative,as they utilize infected mucus to soothe the back of the throat. Recommend avoidance of citrus juices because these can be astringent/irritating. Recommend avoidance of dairy as this makes mucus thick and sticky. Popsicles and ice are good for people who prefer cold, and tea is good for people who prefer warm. You may also use ibuprofen or acetaminophen OTC for relief of pain or fevers. If you were Prescribed antibiotics, be sure to finish entire course even if you are feeling better. You can take florajen, a probiotic if you get nausea/diarrhea with antibiotics. Recommend taking them in between doses of antibiotic for max efficacy. Follow up with PCP within 5-7 day(s) if no improvement, sooner if worse. Go to the ED if any new or severe symptoms appear. ASSESSMENT AND PLAN Upper respiratory tract infection, unspecified type (Primary) - INFLUENZA A/B RSV SARS-COV2,PCR; Future; Expected date: 12/16/2022 - INFLUENZA A/B RSV SARS-COV2,PCR Non-recurrent acute suppurative otitis media of left ear without spontaneous rupture of tympanic membrane - INFLUENZA A/B RSV SARS-COV2,PCR; Future; Expected date: 12/16/2022 - Amoxicillin 875 MG Oral Tablet; Take 1 Tablet by mouth in the morning and 1 Tablet before bedtime. Do all this for 10 days. - INFLUENZA A/B RSV SARS-COV2,PCR to cover for om. Spoke about antibiotic therapy vs watch/wait and patient/guardian would like to try antibiotics. To screen for COVID and continue symptomatic management. To isolate until results come back. Care instructions given. Additional instructions per patient instructions attached. Follow up with PCP in 7 days if symptoms persist. Reasons to go to ED discussed with patient including but not limited to development of acute or severe symptoms. Patient agrees with the plan and demonstrates verbal understanding. Patient stable at the time of discharge. Patient goals for plan of care were discussed. Margy Hernandez PA-C [address] [address] documented in this encounter Nursing Notes * Ashley Sky LPN - 12/16/2022 11:46 AM EDT 37 yo female presents with nasal congestion, cough, body ache, PND x 1 day. Using edilma pot/nasal sprays. documented in this encounter Plan of Treatment Upcoming Encounters Date Type Department Care Team (Late st Contact Info) Description 05/23/2023 2:30 PM EDT Office Visit Cardiology, [facility] [address] [place] [id number] Olivia Dempsey PA-C [address] [place] [address] 08/13/2023 11:20 AM EDT Office Visit [facility] [address] [place] [id number] Karen Wilcox DO [address] [place] [address] Pending Results Name Type Priority Associated Diagnoses Date /Time INFLUENZA A/B RSV SARS-COV2,PCR Lab Routine Upper respiratory tract infection, unspecified type Non-recurrent acute suppurative otitis media of left ear without spontaneous rupture of tympanic membrane 12/16/2022 1:00 PM EDT Scheduled Orders Name Type Priority Associated Diagnoses Orde r Schedule INFLUENZA A/B RSV SARS-COV2,PCR Lab Routine Upper respiratory tract infection, unspecified type Non-recurrent acute suppurative otitis media of left ear without spontaneous rupture of tympanic membrane Expected: 12/16/2022, Expires: 12/17/2023 Scheduled Procedures Name Priority Associated Diagnoses Date/Ti me COLONOSCOPY FLEXIBLE PROXIMAL DIAGNOSTIC Recall History of colon polyps Health Maintenance Due Date Last Done Comments Hepatitis B (1 of 3 - 3-dose series) 1983 HIV Screening 10/10/1998 Hepatitis C Screening 10/10/2001 HPV/Co-Test 10/10/2013 Cervical Cancer Screening 05/23/2018 Pap Smear 05/23/2018 05/24/2015 Depression Screening 10/12/2020 10/13/2019 DTaP,Tdap,and Td Vaccines (2 - Td or Tdap) 04/24/2022 04/24/2012 COVID-19 Vaccine ( - season) 2022 01/13/2022, 03/29/2020, 03/05/2020 Influenza Vaccine (FLU shot) (#1) 2022 12/27/2021, 10/17/2019, 11/05/2018, Additional history exists Diabetes Screening 09/11/2025 09/11/2022, 0 09/11/2022, 05/05/2021, Additional history exists COLONOSCOPY-EVERY 5 YRS AGES 18-100 05/26/2026 05/26/2021 GARDASIL-HPV IMMUNIZATION SERIES Aged Out No longer eligible based on patient's age to complete this topic MENINGOCOCCAL (MENACTRA/MENVEO) Aged Out No longer eligible based on patient's age to complete this topic Pneumococcal Vaccine: Pediatrics (0 to 5 Years) and At-Risk Patients (6 to 64 Years) Aged Out No longer eligible based on patient's age to complete this topic documented as of this encounter Medical Devices Not on filedocumented as of this encounter Visit Diagnoses Diagnosis Upper respiratory tract infection, unspecified type- Primary Non-recurrent acute suppurative otitis media of left ear without spontaneous rupture of tympanic membrane documented in this encounter Care Teams Compliance Director Relationship Specialty Start Date End Date Candice Rasmussen DO [address] [place] [address] PCP - General Family Medicine 05/20/12 documented as of this encounter"
--- OUTSIDE RECORDS SUMMARY | 2022-12-24 17:23 | External Medical Summary ---
Author Name Unknown Address Unknown Organization [id number]:LABORATORY [facility] [place] - [address] [facility] [address] Laboratory Report Ordering Provider Test Date Status WENDY RUSH 12/16/2022 13:00:31 Final Observation Date Value Abnormality Reference (Units ) Status SARS Coronavirus 2 12/16/2022 13:00:31 Negative N egative Final No SARS-CoV2 Coronavirus RNA detected by PCR (amplified probe).
This express test was developed and its performance characteristics determined by [facility]. It has not been cleared or approved by the U.S. Food and Drug Administration (FDA). FDA does not require this test to go thru premarket FDA review. This test is used for clinical purposes. It should not be regarded as investigational or for research. This laboratory is certified under the Clinical Laboratory Improvement Amendments (CLIA) as qualified to perform high complexity clinical laboratory testing.

This test is a nucleic acid amplification test (NAAT), a reverse transcriptase polymerase chain reaction (RT-PCR) test, or a Centers for Disease Control-acceptable equivalent. The test is performed in a high complexity Clinical Laboratory Improvement Amendments-(CLIA) certified laboratory. The test is acceptable for SARS-CoV-2 diagnosis, surveillance, and travel within the [place] and to most countries. Please check with local testing authorities about requirements before travel.

The validation of bronchial specimens, tracheal aspirates, and sputum for this assay was developed and performance characteristics determined by [facility]. The validation of alternate specimen types has not been cleared or approved by the U.S. Food and Drug Administration (FDA). It has been determined that such clearance is not necessary. Influenza virus A RNA [Prese nce] in Specimen by [facility] with probe detection 12/16/2022 13:00:31 Negative Negative Final No Influenza A RNA detected by PCR (amplified probe) Influenza virus B RNA [Prese nce] in Specimen by [facility] with probe detection 12/16/2022 13:00:31 Negative Negative Final No Influenza B RNA detected by PCR (amplified probe) Respiratory syncytial virus RNA [Identifier] in Specimen by [facility] with probe detection 12/16/2022 13:00:31 Negative Negative Final No Respiratory Syncytial Vir us RNA detected by PCR (amplified probe) Performing Location LABORATORY [address] [place]. [facility] [address]
--- OUTSIDE RECORDS SUMMARY | 2022-12-24 17:23 | External Medical Summary | Summary of Care ---
Author Name Unknown Organization [facility] Address [address] [place] [address] Phone [phone] Care Team Providers Care Warehouse Packer Name Role Phone Grady Candice Solano DO Primary Care Provider Reason for Visit * Reason Comments Acute Encounter Details Date Type Department Care Team Description 11/13/2022 Office Visit Family Practice [facility] [place] [address] [place] [address] Shivani Bishop MD [address] [place] [address] Seasonal allergies*; Sore throat; Essential hypertension Allergies Active Allergy Reactions Severity Noted Date Comments Ketoconazole Rash Medium 07/17/2018 documented as of this encounter (statuses as of 11/13/2022) Medications Medication Sig Dispensed Refills Start Date End Date Status ZONISAMIDE 100 MG PO CAPS 1 capsule twice a day 0 Active nystatin 961683 UNIT/GM cream Apply topically to affected area 2 times a day. To affacted area for two weeks. 15 g 2 05/24/2015 Active nystatin (NYSTOP) powder Apply topically to affected area 3 times a day. Sprinkle over affected area. 1 Bottle 0 05/24/2015 Active Pyridoxine HCl 100 MG Oral Tablet Take by mouth once. In the morning 0 Active cetirizine (ZYRTEC ALLERGY) 10 MG Tablet Take 1 Tab by mouth daily. 0 07/10/2018 Active Additional Information Patient taking differently:10 mg Oral Daily(AM),1/2 a tablet in the morning, Reported on 05/09/2022 Polyethylene Glycol 3350 17 GM Oral Packet Take 1 Packet by mouth every other day as needed for Constipation. 0 Active Bisacodyl 10 MG Rectal Suppository (Dulcolax)Indicati ons:Constipation, unspecified constipation type Administer 1 Suppository into the rectum daily as needed for Constipation. Do not use for more than 1 week. 20 Suppository 1 10/05/2020 Active LORazepam 0.5 MG Oral Tablet Take 0.5 Tablets by mouth as needed. 0 Active Ondansetron 4 MG Oral Tablet DisintegratingIndi cations:Nausea without vomiting,Epigastri c pain Place on tongue 1 Tablet every 8 hours as needed for Nausea. dissolve on tongue. 20 Tablet 0 04/19/2021 Active DULoxetine HCl 60 MG Oral Capsule Delayed Release Particles (Cymbalta) Take 1 Capsule by mouth in the morning. Do not cut, crush or chew. 30 Capsule 5 09/30/2021 Active risperiDONE 1 MG Oral Tablet Take 1 Tablet by mouth in the morning and 1 Tablet before bedtime. 0 09/30/2021 Active cloBAZam 10 MG Oral Tablet (Onfi) Take 0.5 Tablets by mouth in the morning. 0 12/07/2021 Active Divalproex Sodium 250 MG Oral Tablet Delayed Release (Depakote DR) Take 3 tablets by mouth in the morning, 1 at noon and 1 tablet by mouth at night 0 03/15/2022 Active Lacosamide 200 MG Oral Tablet (Vimpat) Take 1 tablet (200 mg total) by mouth 3 (three) times daily. 0 03/31/2022 Active Omeprazole 40 MG Oral Capsule Delayed Release (PriLOSEC) Take 1 Capsule by mouth in the morning. 90 Capsule 3 05/09/2022 Active Junel 03/03 1-20 MG-MCG Oral Tablet (Norethindrone Acet-Ethinyl Est)Indications:Al lergic drug rash TAKE 1 TABLET BY MOUTH DAILY FOR 3 WEEKS THEN START NEXT PACK, CONTINUOUS USE 84 Tablet 1 07/15/2022 Active clonazePAM 0.5 MG Oral Tablet (KlonoPIN)Indicati ons:Spastic hemiplegic cerebral palsy (HCC),Partial idiopathic epilepsy with seizures of localized onset, not intractable, without status epilepticus ([facility]) Take 0.5 Tablets by mouth in the morning and 0.5 Tablets before bedtime. Per neurology. 30 Tablet 0 09/11/2022 Active Meclizine HCl 12.5 MG Oral Tablet (Antivert)Indicati ons:Benign paroxysmal vertigo, unspecified laterality Take 1 Tablet by mouth 3 times a day as needed for Dizziness. 30 Tablet 0 09/11/2022 Active amLODIPine Besylate 5 MG Oral Tablet (Norvasc) Take 1 Tablet by mouth in the morning. 90 Tablet 3 10/23/2022 Active Amoxicillin-Pot Clavulanate 875-125 MG Oral Tablet Take 1 Tablet by mouth in the morning and 1 Tablet before bedtime. 0 Active Doxycycline Monohydrate 100 MG Oral Tablet Take 1 Tablet by mouth in the morning and 1 Tablet before bedtime. 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 Benign neoplasm of pituitary gland 10/16 Hyperprolactinemia 07/16/2018 Cutaneous candidiasis 05/24/2015 Sprain of left wrist 12/30/2014 Epilepsy Depression Mood disorder OCD (obsessive compulsive disorder) Hydrocephalus CP (cerebral palsy) documented as of this encounter (statuses as of 11/13/2022) Resolved Problems Problem Noted Date Resolved Date Prolonged Q-T interval on ECG 03/30/2020 Epilepsy 01/08/2017 11/08/2017 documented as of this encounter (statuses as of 11/13/2022) Immunizations Name Administration Dates Next Due COVID-19 mRNA, LNP-s, No Pre serve, 2-Dose Series (SuperMama) 03/29/2020,03/05/2020 COVID-19, mRNA, LNP-s, PF, B ooster, [...] drink = 0.6 oz pur e alcohol) Sex Assigned at Date Recorded Female 05/01/2018 1:06 PM E DT Job Start Date Occupation Industry Not on file Not on file Not on file documented as of this encounter Last Filed Vital Signs Vital Sign Reading Time Taken Comments Blood Pressure 118/70 11/13/2022 1:14 PM EDT Pulse 106 11/13/2022 1:14 PM EDT Temperature 36.7 C (98 F) 11/13/2022 1:14 PM EDT Respiratory Rate 16 11/13/2022 1:14 PM EDT Oxygen Saturation 99% 11/13/2022 1:14 PM EDT Inhaled Oxygen Concentration - - Weight 80.2 kg (176 lb 12 oz) 11/13/2022 1:14 PM EDT Height - - Body Mass Index 34.52 09/28/2022 10:36 AM EDT documented in this encounter Progress Notes * Shivani Bishop MD - 11/13/2022 1:00 PM EDT Subjective Chief Complaint Patient presents with Acute HPI: Olivia Lawrence is a 37 year old female. The following issues were addressed today: Has had throat pain for the past 2 days. Could not sleep last night. Has had mild cough, runny nose, and congestion. Denies fever. Has seasonal allergies but does not take anything. Antihistamines make her very sleepy. She has been using neti pot without much success. Mom has also had sore throat and cold symptoms. Just started on amlodipine for hypertension. Tolerating well without side effects. Requested we check BP twice today. Initial reading 118/70, repeat 118/76. Review of Systems: See HPI Objective BP 118/70 | Pulse 106 | Temp 36.7 C (98 F) (Tympanic) | Resp 16 | Wt 80.2 kg (176 lb 12 oz) | SpO2 99% | BMI 34.52 kg/m | BSA 1.84 m General: Well-appearing, no acute distress HENT: No oropharyngeal erythema, clear rhinorrhea, ear canals normal and tympanic membranes clear bilaterally Eyes: No conjunctival injection Cardiovascular: Regular rate and rhythm, no murmur Respiratory: Good respiratory effort, breath sounds equal and clear to auscultation bilaterally Neurological: Alert and oriented Psychiatric: Appropriate mood and affect Assessment & Plan 1. Seasonal allergies 2. Sore throat Allergies versus viral cause. Strep test negative. Recommended trial of Flonase and to continue neti pot. Continue supportive care. OK to return to work. - GROUP A STREP PCR 3. Essential hypertension Well-controlled. Continue current medication(s). Follow Up: Return if symptoms worsen or fail to improve. This note was electronically signed by Shivani Bishop MD documented in this encounter Nursing Notes * Melissa Alberto LPN - 11/13/2022 1:11 PM EDT Waking up during night, with sinus drainage and st. Started few days before. Tried avi pot. Justfinished antibiotic recently for cellulitis Father wants her Bp checked before and after seeing provider. documented in this encounter Plan of Treatment Upcoming Encounters Date Type Specialty Care Team Description 11/20/2022 Office Visit Cardiology Olivia Dempsey PA-C [address] [place] [address] 08/13/2023 Office Visit Sleep Disorders Karen Wilcox DO [address] [place] [address] Scheduled Procedures Name Priority Associated Diagnoses Date/Ti me COLONOSCOPY FLEXIBLE PROXIMAL DIAGNOSTIC Recall History of colon polyps Health Maintenance Due Date Last Done Comments Hepatitis B (1 of 3 - 3-dose series) 1983 HIV Screening 10/10/1998 Hepatitis C Screening 10/10/2001 HPV/Co-Test 10/10/2013 Cervical Cancer Screening 05/23/2018 Pap Smear 05/23/2018 05/24/2015 Depression Screening 10/12/2020 10/13/2019 COVID-19 Vaccine (4 - Pfizer series) 03/10/2022 01/13/2022, 03/29/2020, 03/05/2020 DTaP,Tdap,and Td Vaccines (2 - Td or Tdap) 04/24/2022 04/24/2012 Influenza Vaccine (FLU shot) (#1) 2022 12/27/2021, [...] Not on filedocumented as of this encounter Procedures Procedure Name Priority Date/Time Associated Diagnosis Comments GROUP A STREP PCR Routine 11/13/2022 Sore throat documented in this encounter Results * GROUP A STREP PCR (11/13/2022) Swab Throat swab / Unknown 11/13/2022 Narrative Melissa Alberto LPN - 11/13/2022 1:36 PM EDT neg Shivani Bishop MD LAB MICRO - GENERAL ORDERABLES documented in this encounter Visit Diagnoses Diagnosis Seasonal allergies- Primary Allergic rhinitis, cause unspecified Sore throat Acute pharyngitis Essential hypertension Unspecified essential hypertension documented in this encounter Care Teams Warehouse Packer Relationship Specialty Start Date End Date Keiter, Harvey [place] [address] [place] [address] PCP - General Family Medicine 05/20/12 documented as of this encounter"
--- OUTSIDE RECORDS SUMMARY | 2022-12-24 17:23 | External Medical Summary | Summary of Care ---
Author Name Unknown Organization [facility] Address [address] [place] [address] Phone [phone] Care Team Providers Care Information Technology Professor Name Role Phone Candice Rasmussen DO Primary Care Provider Reason for Visit * Reason Comments Outpatient Testing Encounter Details Date Type Department Care Team Description 11/20/2022 Laboratory Laboratory, [facility] [address] [place] [id number] [facility] [address] [place] [address] Encounter for long-term (current) use of other medications* Allergies Active Allergy Reactions Severity Noted Date Comments Ketoconazole Rash Medium 07/17/2018 documented as of this encounter (statuses as of 11/20/2022) Medications Medication Sig Dispensed Refills Start Date End Date Status ZONISAMIDE 100 MG PO CAPS 1 capsule twice a day 0 Active nystatin 719054 UNIT/GM cream Apply topically to affected area [...] as of this encounter (statuses as of 11/20/2022) Active Problems Problem Noted Date Periorbital cellulitis [...] as of this encounter (statuses as of 11/20/2022) Resolved Problems Problem Noted Date Resolved Date Prolonged Q-T interval on ECG 03/30/2020 Epilepsy 01/08/2017 11/08/2017 documented as of this encounter (statuses as of 11/20/2022) Immunizations Name Administration Dates Next Due COVID-19 mRNA, LNP-s, No Pre serve, 2-Dose Series (gumi) 03/29/2020,03/05/2020 COVID-19, mRNA, LNP-s, PF, B ooster, 100mcg/0.5mg (Moderna) 01/13/2022 SEASONAL INFLUENZA, PF, 6 M & Above, IM , (FLULAVAL or FLUZONE) 12/27/2021,10/17/2019,11/05/2018, 0 18,03/20/2017 TDAP (age 10 and older)(Boostrix) 04/24/2012 documented as of this encounter Social History Tobacco Use Types Packs/Day Years Used Date Smoking Tobacco: Never Smokeless Tobacco: Never Alcohol Use Standard Drinks/Week Comments No 0 (1 standard drink = 0.6 oz pur e alcohol) Sex Assigned at Date Recorded Female 05/01/2018 1:06 PM E DT Job Start Date Occupation Industry Not on file Not on file Not on file documented as of this encounter Plan of Treatment Upcoming Encounters Date Type Specialty Care Team Description 05/23/2023 Office Visit Cardiology Olivia Dempsey PA-C [address] [place] [address] 08/13/2023 Office Visit Sleep Disorders Karen Wilcox DO [address] [place] [address] Pending Results Name Type Priority Associated Diagnoses Date /Time VALPROIC ACID LEVEL Lab Routine Encounter for long-term (current) use of other medications 11/20/2022 3:09 PM EDT Scheduled Orders Name Type Priority Associated Diagnoses Orde r Schedule VALPROIC ACID LEVEL Lab Routine Encounter for long-term (current) use of other medications Expected: 11/20/2022, Expires: 11/21/2023 Scheduled Procedures Name Priority Associated Diagnoses Date/Ti [...] Td or Tdap) 04/24/2022 04/24/2012 COVID-19 Vaccine (2022- season) 2022 01/13/2022, 03/29/2020, 03/05/2020 Influenza Vaccine [...] as of this encounter Visit Diagnoses Diagnosis Encounter for long-term (current) use of other medications- Primary documented in this encounter Care Teams Information Technology Professor Relationship Specialty Start Date End Date Candice Rasmussen DO [address] [place] [address] PCP - General Family Medicine 05/20/12 documented as of this encounter
--- OUTSIDE RECORDS SUMMARY | 2022-12-24 17:23 | External Medical Summary | Summary of Care ---
Author Name Unknown Organization [facility] Address [address] [place] [address] Phone [phone] Care Team Providers Care Clip Loading Machine Feeder Name Role Phone Candice Rasmussen Primary Care Provider Reason for Visit * Reason Comments Follow Up Encounter Details Date Type Department Care Team (Late st Contact Info) Description 11/20/2022 2:30 PM EDT Office Visit Cardiology, [facility] [address] [place] [address] Olivia Dempsey, SAMSON [address] [place] [address] Hypertension goal BP (blood pressure) < 130/80*; Anxiety; Heart palpitations Allergies Active Allergy Reactions Criticality Noted Date Comments Ketoconazole Rash Medium 07/17/2018 documented as of this encounter (statuses as of 12/11/2022) Medications Medication Sig Dispensed Refills Start Date End Date Status ZONISAMIDE 100 MG PO CAPS 1 capsule twice a day 0 Active nystatin 490209 UNIT/GM cream Apply topically to affected area [...] as of this encounter (statuses as of 12/11/2022) Active Problems Problem Noted Date Diagnosed Date [...] as of this encounter (statuses as of 12/11/2022) Resolved Problems Problem Noted Date Diagnosed Date Resolved Date Prolonged Q-T interval on ECG 03/30/2020 05/31/2022 Epilepsy 01/08/2017 11/08/2017 documented as of this encounter (statuses as of 12/11/2022) Immunizations Name Administration Dates Next Due COVID-19 mRNA, LNP-s, No Pre serve, 2-Dose Series ([employer]) 03/29/2020,03/05/2020 COVID-19, mRNA, LNP-s, PF, B ooster, [...] = 0.6 oz pur e alcohol) Sex and Gender Information Value Date Recorded Sex Assigned at Female 05/01/2018 1:06 PM EDT Gender Identity Female 05/01/2018 1:06 PM EDT Sexual Orientation Straight 05/01/2018 1: 06 PM EDT Job Start Date Occupation Industry Not on file Not on file Not on file documented as of this encounter Last Filed Vital Signs Vital Sign Reading Time Taken Comments Blood Pressure 128/78 11/20/2022 2:30 PM EDT Pulse 102 11/20/2022 2:30 PM EDT Temperature - - Respiratory Rate - - Oxygen Saturation - - Inhaled Oxygen Concentration - - Weight 79.4 kg (175 lb) 11/20/2022 2:30 PM EDT Height - - Body Mass Index 34.18 09/28/2022 10:36 AM EDT documented in this encounter Progress Notes * Olivia Dempsey PA-C - 11/20/2022 2:36 PM EDT Cardiology F/U: CC: Hypertension; Cerebral palsy; seizure disorder History of Present Illness: Olivia Weston Lawrence is a 37 year old female who Presents today for routine cardiology follow-up. Last clinic evaluation approximately 6 months ago with the undersigned. She has a complex history includin. 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 Obsessive-compulsive disorder with intermittent agitation 3. Hypertension Last month patient was seen in ER for hypertension. Started on amlodipine and dose increased to 5 mg due to hypertension. Significant underlying anxiety contributing. She also reported elevated HR's at home and underwent ZIO monitor without concerning arrhythmias. Doing well on amlodipine. BP much improved today. No chest pain, shortness of breath, palpitations, dizziness, syncope or near syncope. No orthopnea,PND, or increased lower extremity edema. No fever, chills, cough, hematochezia, melena, or hemoptysis. Review of Systems: See HPI for pertinent positives. All others negative, other than those noted in HPI. 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 Other hydrocephalus ([facility]) G91.8 Spastic hemiplegic cerebral palsy ([facility]) G80.2 Partial idiopathic epilepsy with seizures of localized onset, not intractable, without status epilepticus ([facility]) G40.009 History of prolonged Q-T interval on ECG Z87.898 Periorbital cellulitis of left eye L03.213 Rash and nonspecific skin eruption R21 Past Surgical History: Procedure Laterality Date BRAIN CANAL SHUNT FOR DRAIN/INJECT COLONOSCOPY, DIAGNOSTIC (RECTUM) 05/26/2021 benign proximal hyperplastic polyp, repeat 5 yrs / [facility] EGD, FLEXIBLE, DIAGNOSTIC 05/26/2021 normal / [facility] REVISE PALSY FOREARM/WRIST TENDON SPINAL FUSION, 4-7 VERT, ANTERIOR scoliosis Family History: Family history notable for hypertension Social History: Social History Tobacco Use Smoking status: Never Smokeless tobacco: Never Vaping Use Vaping Use: Never used Substance Use Topics Alcohol use: No Drug use: No Allergies: Ketoconazole Medications: Current Outpatient Medications Medication Sig Dispense Refill ZONISAMIDE 100 MG PO CAPS 1 capsule twice a day nystatin 313876 UNIT/GM cream Apply topically to affected area [...] mouth in the morning. 90 Tablet 3 Amoxicillin-Pot Clavulanate 875-125 MG Oral Tablet Take 1 Tablet by mouth in the morning and 1 Tablet before bedtime. Doxycycline Monohydrate 100 MG Oral Tablet Take 1 Tablet by mouth in the morning and 1 Tablet before bedtime. No current facility-administered medications for this visit. OBJECTIVE/PHYSICAL EXAMINATION: BP 128/78 | Pulse 102 | Wt 79.4 kg (175 lb) | BMI 34.18 kg/m | BSA 1.83 m On my repeat 126/72 Wt Readings from Last 3 Encounters: 11/20/22 79.4 kg (175 lb) 11/13/22 80.2 kg (176 lb 12 oz) 09/28/22 79.9 kg (176 lb 0.6 oz) BP Readings from Last 4 Encounters: 11/20/22 128/78 11/13/22 118/70 10/27/22 142/96 10/18/22 112/72 General: no acute distress and stated age Head: normocephalic, atraumatic. No masses, lesions. Neck: supple Chest: normal shape and normal respiratory effort Lungs: No audible wheezing or cough. No conversational dyspnea Extremities: no edema Neuro: grossly normal exam. No focal deficits. Psych: Normal Data: ZIO completed Oct 2022: CONCLUSIONS: Preliminary Findings Prepared by Raquel Wick, CCT 11/03/22 Duration: 3 days ranging from 10/27/2022 until 10/30/2022 Patient had a min HR of 50 bpm, max HR of 152 bpm, and avg HR of 93 bpm. Predominant underlying rhythm was Sinus Rhythm. Isolated SVEs were rare (<1.0%), and no SVE Couplets or SVE Triplets were present. Isolated VEs were rare (<1.0%), and no VE Couplets or VE Triplets were present. Two diary events and two patient triggered events were submitted. events correlate with sinus tachycardia ranging from 105 beats per minute to 139 beats per minute. EKG performed Oct 2022: Normal sinus rhythm Left axis deviation Nonspecific ST and T wave abnormality Abnormal ECG When compared with ECG of 16-MAY-2022 11:47, No significant change was found Echocardiogram report reviewed dated March 2022: Interpretation Summary The examination is adequate to evaluate the referral indication. Calculated LV ejection Fraction = 54% (bi-plane method of discs). The left ventricular diastolic function is mildly abnormal (grade I). No significant valvular disease is present. EKG reviewed from Dec 2021 Normal sinus rhythm Normal ECG When compared with ECG of 19-APR-2021 11:44, No significant change was found EKG performed April 2021: Normal sinus rhythm Nonspecific T wave abnormality Abnormal ECG When compared with ECG of 28-MAR-2020 15:34, Nonspecific T wave abnormality no longer evident in Lateral leads QT has shortened EKG performed on 12/25/20 at [facility] ER, reviewed: Sinus bradycardia at 47 bpm Incomplete RBBB T wave abnormality, similar to prior EKG's in [facility] QT/QTc 468/414 ms Echo report reviewed dated April 2020: Interpretation Summary The primary indication after review was deemed appropriate and the examination was performed. Normal LV chamber size and mild wall thickness. Normal LV systolic function without regional wall motion abnormality. Calculated LV ejection Fraction = 60% (bi-plane method of discs). Normal diastolic function. No significant valvular pathology. EKG March 28, 2020: Normal sinus rhythm RSR' or QR pattern in V1 suggests right ventricular conduction delay Nonspecific ST and T wave abnormality Prolonged QT interval or tu fusion, consider myocardial disease, electrolyte imbalance, or drug effects Abnormal ECG When compared with ECG of 24-MAR-2020 16:29, No significant change was found Ventricular Rate: 88 IMPRESSION: 37 year old female ICD-10-CM 1. Hypertension goal BP (blood pressure) < 130/80 I10 2. Anxiety F41.9 3. Heart palpitations R00.2 RECOMMENDATIONS/PLAN: We reviewed recent EKG and ZIO. No concerning arrhythmias. BP controlled. Continue amlodipine. Exercise encouraged. Weight loss encouraged. The patient is to continue all current medications as listed above. No changes were made at today'svisit. I spent a total of 30 minutes on the date of service in preparation, delivery, and documentation ofthe care provided to Olivia Lawrence excluding any time spent in the performance of separately billed services. The patient agrees to the above plan and will call with additional questions or concerns. ER with all emergencies advised. Follow Up: Return in about 6 months (around 05/22/2023). Olivia Dempsey PA-C Department of Cardiology This chart was completed in part utilizing [employer] Speech Voice Recognition Software. Grammatical errors, random word insertions, prounoun errors, and incomplete sentences are an occasional consequence of this system due to software limitations, ambient noise, and hardware issues. Any formal questions or concerns about the content, text, or information contained within the body of this dictation should be directly addressed to the provider for clarification. documented in this encounter Nursing Notes * Radha De La Torre CMA - 11/20/2022 2:32 PM EDT Examination Room: 1 Name: Olivia Lawrence Date of : (1985) Reason for Visit: 6m Interim Hospitalization(s): none Problems/Concerns: denied Chest Pain/SOB: denied My [facility] is a way you can talk to your provider online through e-mail. Would you like to sign up? I can activate it for you? ALREADY ACTIVE Patient was instructed to not get up on the exam table until directed and assisted by their provider; patient is to remain seated in the chair/ wheelchair/ exam table for fall prevention and safety reasons. Patient is aware to have assistance to step down off exam table with personnel. Patient voiced full comprehension of instructions. documented in this encounter Plan of Treatment Upcoming Encounters Date Type Department Care Team (Late st Contact Info) Description 05/23/2023 2:30 PM EDT Office Visit Cardiology, [facility] [address] [place] [address] Olivia Dempsey PA-C [address] [place] [address] 08/13/2023 11:20 AM EDT Office Visit Sleep Disorders [facility] [address] [place] [phone] Karen Wilcox DO [address] [place] [address] Scheduled Procedures Name Priority Associated Diagnoses Date/Ti [...] Td or Tdap) 04/24/2022 04/24/2012 COVID-19 Vaccine (4 - 2022- season) 2022 01/13/2022, 03/29/2020, 03/05/2020 Influenza Vaccine [...] as of this encounter Visit Diagnoses Diagnosis Hypertension goal BP (blood pressure) < 130/80- Primary Unspecified essential hypertension Anxiety Anxiety state, unspecified Heart palpitations Palpitations documented in this encounter Care Teams Clip Loading Machine Feeder Relationship Specialty Start Date End Date Candice Rasmussen DO [facility] [place] [address] [address] PCP - General Family Medicine 05/20/12 documented as of this encounter"
--- OUTSIDE RECORDS SUMMARY | 2022-12-24 17:23 | External Medical Summary | Summary of Care ---
Author Name Unknown Organization [facility] Address [address] [place] [address] Phone [phone] Care Team Providers Care Mushroom Cultivator Name Role Phone Candice Rasmussen DO Primary Care Provider Reason for Visit * Reason Comments Outpatient Testing Encounter Details Date Type Department Care Team Description 11/20/2022 Laboratory Laboratory, [facility] [address] [facility] [phone] [facility] [address] [place] [address] Encounter for long-term (current) use of other medications* Allergies Active Allergy Reactions Severity Noted Date Comments Ketoconazole Rash Medium 07/17/2018 documented as of this encounter (statuses as of 11/20/2022) Medications Medication Sig Dispensed Refills Start Date End Date Status ZONISAMIDE 100 MG PO CAPS 1 capsule twice a day 0 Active nystatin 720443 UNIT/GM cream Apply topically to affected area [...] mRNA, LNP-s, No Pre serve, 2-Dose Series ([email or web address]) 03/29/2020,03/05/2020 COVID-19, mRNA, LNP-s, PF, B ooster, [...] Dempsey PA-C [address] [place] [address] 08/13/2023 Office Visit Sleep Disorders Karen Wilcox DO [address] [place] [address] Pending Results Name Type Priority Associated Diagnoses [...] Primary documented in this encounter Care Teams Mushroom Cultivator Relationship Specialty Start Date End Date Candice Rasmussen DO [address] [place] [address] PCP - General Family Medicine 05/20/12 documented as of this encounter
--- OUTSIDE RECORDS SUMMARY | 2022-12-24 17:23 | External Medical Summary ---
Author Name Unknown Address Unknown Organization K01:[facility] [address] [place] [address] Laboratory Report Ordering Provider Test Date Status BRENTON DOMINIQUE 11/20/2022 15:09:35 Final Observation Date Value Abnormality Reference (Units ) Status Valproic Acid, level 11/20/2022 15:09:35 82 50-100 (ug/mL) Final Performing Location [facility] [address] [place] [address]
--- OUTSIDE RECORDS SUMMARY | 2022-12-24 17:23 | External Medical Summary | Summary of Care ---
Author Name Unknown Organization [facility] Address [address] [place] [address] Phone [phone] Care Team Providers Care Home Companion Name Role Phone Candice Rasmussen Primary Care Provider Reason for Visit * Reason Onset Date Comments Blood Pressure Check 11/05/2022 Encounter Details Date Type Department Care Team Description 11/05/2022 Telephone 5A [facility], [facility] 5th Floor [address] [facility] [place] [id number] Olivia Dempsey PA-C [address] [place] [address] Blood Pressure Check Allergies Active Allergy Reactions Severity Noted Date Comments Ketoconazole Rash Medium 07/17/2018 documented as of this encounter (statuses as of 11/16/2022) Medications Medication Sig Dispensed Refills Start Date End Date Status ZONISAMIDE 100 MG PO CAPS 1 capsule twice a day 0 Active nystatin 024530 UNIT/GM cream Apply topically to affected area [...] as of this encounter (statuses as of 11/16/2022) Active Problems Problem Noted Date Periorbital cellulitis [...] as of this encounter (statuses as of 11/16/2022) Resolved Problems Problem Noted Date Resolved Date Prolonged Q-T interval on ECG 03/30/2020 Epilepsy 01/08/2017 11/08/2017 documented as of this encounter (statuses as of 11/16/2022) Immunizations Name Administration Dates Next Due COVID-19 mRNA, LNP-s, No Pre serve, 2-Dose Series ([employer]) 03/29/2020,03/05/2020 COVID-19, mRNA, LNP-s, PF, B ooster, [...] on file documented as of this encounter Miscellaneous Notes * Telephone Encounter - Olivia Dempsey PA-C - 11/16/2022 2:28 PM EDT Noted. No changes at this time Keep f/u as scheduled * Telephone Encounter - Ed Ragland RN - 11/16/2022 12:58 PM EDT Called and spoke to the patient and she stated she is feeling much better. She denies any palpitations. She had her Bp checked on 11/13/2022 at PCP office and it was 118/70. * Telephone Encounter - Corwni Mc LPN - 11/05/2022 1:07 PM EDT MyG sent. Awaiting reply. * Telephone Encounter - Corwin Mc LPN - 11/05/2022 1:02 PM EDT Olivia Dempsey PA-C at 10/30/22 0804 Status: Signed Cosigner: Harris Vegas, at 10/30/22 0900 Elevated BP and palpitations may be due to antibiotic and infection. Finish antibiotics. Continue amlodipine 5 mg daily for now. Monitor BP at home. See how she is feeling this week and over the weekend? Would not increase dose of medication at this time unless BP remains high after antibiotics are finished. EKG demonstrated Normal sinus rhythm. HR is 95. Encourage hydration. Avoid caffeine. EKG was unchanged from last evaluation. * Telephone Encounter - Corwin Mc LPN - 11/05/2022 1:01 PM EDT KOJO Reinoso at 10/27/22 1534 Status: Addendum Olivia Lawrence presented for blood pressure check per provider orders. The blood pressure was obtained using the left arm in the sitting position using a adult large cuff. The results were charted in Vital Signs. BP Readings from Last 3 Encounters: 10/27/22 142/96 10/18/22 112/72 09/28/22 110/72 BP 142/96 (BP Site: Left Arm, BP Position: Sitting, BP Cuff Size: Large) Pt states she feels like her heart flutters and she has a hard time taking deep breaths if she "tries to do anything at all." Pt states she was swimming in a pool on 10-15-2022. On 10-18-2022, her left eye was "puffy and closed" and she was diagnosed with periorbital cellulitis and prescribed Augmentin and . Pt states this is the same day she started having the above mentioned symptoms. Patient denies headache, pressure in head, dizziness, lightheadedness, chest discomfort, focal neurological symptoms, change in vision, nose bleeds. Did patient take medications today? Yes -- approx 9-10 a.m. Patient was instructed to follow-up as per their next scheduled appt documented in this encounter Plan of Treatment Upcoming Encounters Date Type Specialty Care Team Description 11/20/2022 Office Visit Cardiology Olivia Dempsey PA-C [address] [place] [address] 08/13/2023 Office Visit Sleep Disorders Karen Wilcox DO [address] [place] [address] Scheduled Procedures Name Priority Associated Diagnoses Date/Ti [...] Not on filedocumented as of this encounter Care Teams Home Companion Relationship Specialty Start Date End Date Candice Rasmussen DO [address] [place] [address] PCP - General Family Medicine 05/20/12 documented as of this encounter
--- OUTSIDE RECORDS SUMMARY | 2022-12-24 17:24 | External Medical Summary | Summary of Care ---
Author Name Unknown Organization [facility] Address [address] [place] [address] Phone [phone] Care Team Providers Care Librarian Name Role Phone Grady Harvey Xiomara ZENG Primary Care Provider Reason for Visit * Reason Onset Date Comments Blood Pressure Check Blood Pressure Check 10/27/2022 Encounter Details Date Type Department Care Team Description 10/27/2022 Cardiac Studies Cardiac Studies, [facility] [address] [place] [address] Elevated blood pressure, situational* Allergies Active Allergy Reactions Severity Noted Date Comments Ketoconazole Rash Medium 07/17/2018 documented as of this encounter (statuses as of 10/27/2022) Medications Medication Sig Dispensed Refills Start Date End Date Status ZONISAMIDE 100 MG PO CAPS 1 capsule twice a day 0 Active nystatin 277698 UNIT/GM cream Apply topically to affected area [...] for Dizziness. 30 Tablet 0 09/11/2022 Active Additional Information Patient not taking.Reported on 10/18/2022 amLODIPine Besylate 5 MG Oral Tablet (Norvasc) Take 1 Tablet by mouth in the morning. 90 Tablet 3 10/23/2022 Active Amoxicillin-Pot Clavulanate 875-125 MG Oral Tablet (Augmentin) Take 1 Tablet by mouth in the morning and 1 Tablet before bedtime. 0 Active Doxycycline Monohydrate 100 MG Oral Tablet Take 1 Tablet by mouth in the morning and 1 Tablet before bedtime. 0 Active documented as of this encounter (statuses as of 10/27/2022) Active Problems Problem Noted Date Periorbital cellulitis [...] as of this encounter (statuses as of 10/27/2022) Resolved Problems Problem Noted Date Resolved Date Prolonged Q-T interval on ECG 03/30/2020 Epilepsy 01/08/2017 11/08/2017 documented as of this encounter (statuses as of 10/27/2022) Immunizations Name Administration Dates Next Due COVID-19 mRNA, LNP-s, No Pre serve, 2-Dose Series ([employer]) 03/29/2020,03/05/2020 COVID-19, mRNA, LNP-s, PF, B ooster, 100mcg/0.5mg ([employer]) 01/13/2022 Seasonal Influenza, PF, 6 mo ns & Above, IM , ([employer]) 12/27/2021,10/17/2019,11/05/2018, 0 18,03/20/2017 TDAP (age 10 and [...] Sign Reading Time Taken Comments Blood Pressure 142/96 10/27/2022 3:47 PM EDT Pulse - - Temperature - - Respiratory Rate - - Oxygen Saturation - - Inhaled Oxygen Concentration - - Weight - - Height - - Body Mass Index - - documented in this encounter Progress Notes * Rox Morales, COT - 10/27/2022 3:34 PM EDT Olivia Lawrence presented for blood pressure check [...] Encounters Date Type Specialty Care Team Description 11/01/2022 Telemedicine Gastroenterology Roma Galvez CRNP [address] [place] [address] 11/20/2022 Office Visit Cardiology Olivia Dempsey PA-C [address] [place] [address] 08/13/2023 Office Visit Sleep Disorders Karen Wilcox DO [address] [place] [address] Scheduled Orders Name Type Priority Associated Diagnoses Orde r Schedule BLOOD PRESSURE Procedures Routine Elevated blood pressure, situational Ordered: 10/27/2022 Scheduled Procedures Name Priority Associated Diagnoses Date/Ti [...] as of this encounter Visit Diagnoses Diagnosis Elevated blood pressure, situational- Primary Elevated blood pressure reading without diagnosis of hypertension documented in this encounter Care Teams Librarian Relationship Specialty Start Date End Date Candice Rasmussen DO [address] [place] [address] PCP - General Family Medicine 05/20/12 documented as of this encounter
--- OUTSIDE RECORDS SUMMARY | 2022-12-24 17:24 | External Medical Summary | Summary of Care ---
Author Name Unknown Organization [facility] Address [address] [place] [address] Phone [phone] Care Team Providers Care Obstetrics And Gynecology Professor Name Role Phone Grady Harvey Xiomara Primary Care Provider Reason for Visit * Reason Comments Acute Patient presents in office today for L swollen eye -- noticed this morning. Increased swelling and redness.Has tried eye drops with no relief.Denies anything being in eye that she is aware of. Encounter Details Date Type Department Care Team Description 10/18/2022 Office Visit [facility] [address] [facility] [address] Le[facility]imaldo [facility] [address] [facility] [address] Periorbital cellulitis of left eye*; Rash and nonspecific skin eruption Allergies Active Allergy Reactions Severity Noted Date Comments Ketoconazole Rash Medium 07/17/2018 documented as of this encounter (statuses as of 10/18/2022) Medications Medication Sig Dispensed Refills Start Date End Date Status ZONISAMIDE 100 MG PO CAPS 1 capsule twice a day 0 Active nystatin 580457 UNIT/GM cream Apply topically to affected area [...] amLODIPine Besylate 5 MG Oral Tablet (Norvasc) 0.5 Tablets. 0 09/22/2022 Active documented as of this encounter (statuses as of 10/18/2022) Active Problems Problem Noted Date Periorbital cellulitis [...] as of this encounter (statuses as of 10/18/2022) Resolved Problems Problem Noted Date Resolved Date Prolonged Q-T interval on ECG 03/30/2020 Epilepsy 01/08/2017 11/08/2017 documented as of this encounter (statuses as of 10/18/2022) Immunizations Name Administration Dates Next Due COVID-19 mRNA, LNP-s, No Pre serve, 2-Dose Series (Pfizer) 03/29/2020,03/05/2020 Covid-19 Mrna, Lnp-s, No Pre serve, Booster (Moderna) 01/13/2022 Seasonal Influenza, PF, 6 mo [...] Sign Reading Time Taken Comments Blood Pressure 112/72 10/18/2022 3:01 PM EDT Pulse 64 10/18/2022 3:01 PM EDT Temperature - - Respiratory Rate 18 10/18/2022 3:01 PM EDT Oxygen Saturation 99% 10/18/2022 3:01 PM EDT Inhaled Oxygen Concentration - - Weight - - Height - - Body Mass Index - - documented in this encounter Progress Notes * SAYRA Barr - 10/18/2022 3:01 PM EDT Images from the original note were not included. Acute Family Medicine Visit CC: Chief Complaint Patient presents with Acute Patient presents in office today for L swollen eye -- noticed this morning. Increased swelling and redness. Has tried eye drops with no relief. Denies anything being in eye that she is aware of. History of Present Illness: Olivia Lawrence is a 37 year old female presenting today for left eye swelling and redness. Started this am. No associated fever, uri symptoms. Denies blurred vision. Scalp rash present since yesterday. [place]. Feels like sunburn. She did hit her head at someone's pool yesterday and had some bleeding. Social History Socioeconomic History Marital status: Single [...] on file Housing Stability: Not on file PMH: Past Medical History: Diagnosis Date CP (cerebral palsy) (HCC) Depression Epilepsy (HCC) Hydrocephalus (HCC) Mood disorder (HCC) OCD (obsessive compulsive disorder) Prolonged Q-T interval on ECG 03/30/2020 Past Surgical History: Procedure Laterality Date BRAIN CANAL SHUNT FOR DRAIN/INJECT COLONOSCOPY, DIAGNOSTIC (RECTUM) 05/26/2021 benign proximal hyperplastic polyp, repeat 5 yrs / [facility] EGD, FLEXIBLE, DIAGNOSTIC 05/26/2021 normal / [facility] REVISE PALSY FOREARM/WRIST TENDON SPINAL FUSION, 4-7 VERT, ANTERIOR scoliosis Outpatient Medications Marked as Taking for the 10/18/22 encounter (Office Visit) with SAYRA Barr Medication Sig amLODIPine Besylate 5 MG Oral Tablet (Norvasc) 0.5 Tablets. clonazePAM 0.5 MG Oral Tablet (KlonoPIN) Take 0.5 Tablets by mouth in the morning and 0.5 Tablets before bedtime. Per neurology. 03/03 1-20 MG-MCG Oral Tablet (Norethindrone Acet-Ethinyl Est) TAKE 1 TABLET BY MOUTH DAILY FOR 3 WEEKS THEN START NEXT PACK, CONTINUOUS USE Omeprazole 40 MG Oral Capsule Delayed Release (PriLOSEC) Take 1 Capsule by mouth in the morning. Lacosamide 200 MG Oral Tablet (Vimpat) Take 1 tablet (200 mg total) by mouth 3 (three) times daily. Divalproex Sodium 250 MG Oral Tablet Delayed Release (Depakote DR) Take 3 tablets by mouth in the morning, 1 at noon and 1 tablet by mouth at night cloBAZam 10 MG Oral Tablet (Onfi) Take 0.5 Tablets by mouth in the morning. DULoxetine HCl 60 MG Oral Capsule Delayed Release Particles (Cymbalta) Take 1 Capsule by mouth in the morning. Do not cut, crush or chew. risperiDONE 1 MG Oral Tablet Take 1 Tablet by mouth in the morning and 1 Tablet before bedtime. Ondansetron 4 MG Oral Tablet Disintegrating Place on tongue 1 Tablet every 8 hours as needed for Nausea. dissolve on tongue. LORazepam 0.5 MG Oral Tablet Take 0.5 Tablets by mouth as needed. Bisacodyl 10 MG Rectal Suppository (Dulcolax) Administer 1 Suppository into the rectum daily as needed for Constipation. Do not use for more than 1 week. Polyethylene Glycol 3350 17 GM Oral Packet Take 1 Packet by mouth every other day as needed for Constipation. cetirizine (ZYRTEC ALLERGY) 10 MG Tablet Take 1 Tab by mouth daily. (Patient taking differently: Take 1 Tablet by mouth in the morning. 1/2 a tablet in the morning.) Pyridoxine HCl 100 MG Oral Tablet Take by mouth once. In the morning nystatin (NYSTOP) powder Apply topically to affected area 3 times a day. Sprinkle over affected area. nystatin 203456 UNIT/GM cream Apply topically to affected area 2 times a day. To affacted area for two weeks. ZONISAMIDE 100 MG PO CAPS 1 capsule twice a day Review of patient's allergies indicates: Allergen Reactions Ketoconazole Rash Most Recent Immunizations Administered Date(s) Administered COVID-19 mRNA, LNP-s, No Preserve, 2-Dose Series (Pfizer) 03/29/2020 Covid-19 Mrna, Lnp-s, No Preserve, Booster (Moderna) 01/13/2022 Seasonal Influenza, PF, 6 mons & Above, IM , (Flulaval) 12/27/2021 TDAP (age 10 and older)(Boostrix) 04/24/2012 Review of Systems: Review of Systems Constitutional: Negative for chills, diaphoresis, fatigue and fever. Eyes: Positive for discharge, redness and visual disturbance. Skin: Positive for color change and rash. Physical Exam: Filed Vitals: 10/18/22 1501 BP: 112/72 Pulse: 64 Resp: 18 SpO2: 99% Physical Exam HENT: Head: Normocephalic. Left periorbital erythema present. Comments: 3 plus swelling EOM painful No rash on eye Bright red erythematous rash ? Pustules vs. vesicles Cardiovascular: Rate and Rhythm: Normal rate and regular rhythm. Pulmonary: Effort: Pulmonary effort is normal. Breath sounds: Normal breath sounds. Neurological: General: No focal deficit present. Mental Status: She is alert and oriented to person, place, and time. Psychiatric: Mood and Affect: Mood normal. Behavior: Behavior normal. Thought Content: Thought content normal. Judgment: Judgment normal. Assessment and Plan: 1. Periorbital cellulitis of left eye SUSPECTED BACTERIAL VS HERPES ZOSTER DR. EVANS IN TO EVAL- RECOMMEND ED EVALUATION PATIENT'S parents transported her to [facility] Report called to "Tammy mejía" 2. Rash and nonspecific skin eruption Scalp ? Shingles vs cellulitis I have advised the patient to call our office incase of any worsening or new symptoms. I spent a total of 20-29 minutes (exact time 25 mins) on the date of service in preparation, delivery, and documentation of the care provided to Olivia Lawrence excluding any time spent in the performance of separately billed services. HUMZA Hayes, SAYRA [facility] documented in this encounter Nursing Notes * DARÍO Cox - 10/18/2022 2:59 PM EDT The patient has been properly identified by confirmation of name and date of . Chief Complaint Patient presents with Acute Patient presents in office today for L swollen eye -- noticed this morning. Increased swelling and redness. Has tried eye drops with no relief. Denies anything being in eye that she is aware of. documented in this encounter Plan of Treatment Upcoming Encounters Date Type Specialty Care Team Description 11/01/2022 Telemedicine Gastroenterology Roma Galvez CRNP [address] [place] [address] 11/20/2022 Office Visit Cardiology Olivia Dempsey PA-C [address] [place] [address] 08/13/2023 Office Visit Sleep Disorders Karen Wilcox DO [address] [place] [address] Scheduled Procedures Name Priority Associated Diagnoses Date/Ti me COLONOSCOPY FLEXIBLE PROXIMAL DIAGNOSTIC Recall History of colon polyps Health Maintenance Due Date Last Done Comments Hepatitis B (1 of 3 - 3-dose series) 1983 HIV Screening 10/10/1998 Hepatitis C Screening 10/10/2001 HPV/Co-Test 10/10/2013 Cervical Cancer Screening 05/23/2018 Pap Smear 05/23/2018 05/24/2015 Depression Screening, Annual for Pts 12 and Over 10/12/2020 10/13/2019 COVID-19 Vaccine (4 - Pfizer [...] as of this encounter Visit Diagnoses Diagnosis Periorbital cellulitis of left eye- Primary Rash and nonspecific skin eruption Rash and other nonspecific skin eruption documented in this encounter Care Teams Obstetrics And Gynecology Professor Relationship Specialty Start Date End Date Candice Rasmussen DO [address] [place] [address] PCP - General Family Medicine 05/20/12 documented as of this encounter
--- OUTSIDE RECORDS SUMMARY | 2022-12-24 17:24 | External Medical Summary ---
Author Name Unknown Address Unknown Organization K09:[facility] [place] [address] Laboratory Report Ordering Provider Test Date Status JESUS WEAVER 09/11/2022 12:09:25 Final Observation Date Value Abnormality Reference (Units ) Status WBC, Total 09/11/2022 12:09:25 4.47 4.00-10.8 0 (K/uL) Final RBC 09/11/2022 12:09:25 4.15 3.85-5.15 (M/uL) Final Hemoglobin 09/11/2022 12:09:25 13.5 12.0-15.3 (g/dL) Final HCT 09/11/2022 12:09:25 41.8 36.0-45.2 (%) Final MCV 09/11/2022 12:09:25 100.7 81.5-97.5 (fL) Final MCH 09/11/2022 12:09:25 32.5 27.0-34.0 (pg) Final MCHC 09/11/2022 12:09:25 32.3 32.0-36.0 (g/dL) Final RDW 09/11/2022 12:09:25 13.1 11.5-15.5 (%) Final Platelets 09/11/2022 12:09:25 167 140-400 (K /uL) Final MPV 09/11/2022 12:09:25 11.7 6.6-11.1 ( fL) Final Performing Location [facility] [place] [address]
--- OUTSIDE RECORDS SUMMARY | 2022-12-24 17:24 | External Medical Summary | Summary of Care ---
Author Name Unknown Organization [facility] Address [address] [place] [address] Phone [phone] Care Team Providers Care Manufacturing Technician Name Role Phone Candice Rasmussen Primary Care Provider Reason for Visit * Reason Onset Date Comments Advice 10/23/2022 Encounter Details Date Type Department Care Team Description 10/23/2022 [facility]phone [facility] [place] [id number] Olivia Dempsey PA-C [address] [facility] [address] Advice Allergies Active Allergy Reactions Severity Noted Date Comments Ketoconazole Rash Medium 07/17/2018 documented as of this encounter (statuses as of 10/27/2022) Medications Medication Sig Dispensed Refills Start Date End Date Status ZONISAMIDE 100 MG PO CAPS 1 capsule twice a day 0 Active nystatin 708883 UNIT/GM cream Apply topically to affected area [...] 07/15/2022 Active clonazePAM 0.5 MG Oral Tablet (KlonoPIN)Indicat [...] the morning. 90 Tablet 3 10/23/2022 Active amLODIPine Besylate 5 MG Oral Tablet (Norvasc) 0.5 Tablets. 0 09/22/2022 10/24/19 23 Discontinu ed(Refill) documented as of this encounter (statuses as [...] mRNA, LNP-s, No Pre serve, 2-Dose Series (Qurater) 03/29/2020,03/05/2020 COVID-19, mRNA, LNP-s, PF, B ooster, [...] encounter Miscellaneous Notes * Telephone Encounter - Can Mercado LPN - 10/27/2022 2:50 PM EDT Scheduled. Orders placed. * Telephone Encounter - Can Mercado LPN - 10/27/2022 1:25 PM EDT Called patient's father and left a message to return call. * Telephone Encounter - Olivia Dempsey PA-C - 10/27/2022 11:04 AM EDT Can schedule appt for evaluation. Any available provider? An offer nurse visit for EKG, BP check and place 3 day ZIO while we wait for appt * Telephone Encounter - Can Mercado LPN - 10/27/2022 10:49 AM EDT Patient's father, Denny, called in with an update. Patient's blood pressure today about an hour after taking medications 131/104. Patient complained of heart flutter when walking/exercises that lasted 15 minutes. At that time she was barely able to speak and SOB- unsure if just from anxiety relatedto the fluttering. Patient's father asking for an appointment for patient to be evaluated. Please advise. * Telephone Encounter - Olivia Dempsey PA-C - 10/23/2022 12:30 PM EDT Noted. Orders signed as requested. * Telephone Encounter - Ed Ragland RN - 10/23/2022 11:25 AM EDT Pending Prescriptions: Disp Refills amLODIPine Besylate 5 MG Oral Tablet (Nor*90 Tab*3 Sig: Take 1 Tablet by mouth in the morning. Last Visit: 05/16/2022 (in office), 01/26/2022 (telemedicine) Next Visit: 11/20/2022 Last medication order date: 09/22/2022 Have you choosen a preferred pharm?? 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 ([facility]) D35.2 Other hydrocephalus ([facility]) G91.8 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 of localized onset, not intractable, without status epilepticus ([facility]) G40.009 History of prolonged Q-T interval on ECG Z87.898 Periorbital cellulitis of left eye L03.213 Rash and nonspecific skin eruption R21 Labs: Lab Results Component Value Date/Time CREATININE - [facility] 0.9 09/11/2022 12:09 PM CREATININE - [facility] 0.9 12/15/2019 10:36 AM CREATININE-OUTSIDE LAB 0.90 03/01/2018 12:00 AM Lab Results Component Value Date/Time POTASSIUM - [facility] 4.0 09/11/2022 12:09 PM POTASSIUM - [facility] 3.6 12/15/2019 10:36 AM POTASSIUM-OUTSIDE LAB 3.4 (A) 03/01/2018 12:00 AM Lab Results Component Value Date/Time TSH - [facility] 2.36 09/11/2022 12:09 PM TSH - [facility] 2.36 06/07/2018 08:38 AM TSH - OUTSIDE LAB 1.720 03/01/2018 12:00 AM Lab Results Component Value Date/Time LDL CHOLESTEROL (CALCULATED) - [facility] 77 09/11/2022 12:09 PM LDL CHOLESTEROL (CALCULATED) - [facility] 109 03/29/2020 11:39 AM LDL CHOLESTEROL (CALCULATED) - [facility] 84 09/05/2019 08:25 AM LDL CHOLESTEROL (CALCULATED) - [facility] 92 04/25/2019 08:54 AM LDL CHOLESTEROL (DIRECT MEASURE) - [facility] NOT APPLICABLE 04/25/2019 08:54 AM Lab Results Component Value Date/Time ALT - [facility] 32 09/11/2022 12:09 PM ALT - [facility] 33 12/15/2019 10:36 AM Hemoglobin AIC Results: Lab Results Component Value Date/Time HEMOGLOBIN A1C - [facility] 5.5 09/11/2022 12:09 PM HEMOGLOBIN A1C - [facility] 5.2 09/05/2019 08:25 AM HEMOGLOBIN A1C - [facility] 5.3 04/25/2019 08:54 AM HEMOGLOBIN A1C - [facility] 4.6 04/20/2017 08:59 AM * Telephone Encounter - Ed Ragland RN - 10/23/2022 11:23 AM EDT Called the patient's mother and reviewed the message with her from Olivia Dempsey PA-C in regards tothe patient's medication. She stated she understood and will follow up on Sunday. Script pended as requested by the patient's mother. * Telephone Encounter - Olivia Dempsey PA-C - 10/23/2022 10:24 AM EDT Chart and hospital records reviewed in detail. Increase amlodipine to 5 mg daily for uncontrolled HTN. Monitor BP at home at least 2 hours after AM meds and after sitting for 10 min. Send readings at the end of the week. * Telephone Encounter - Ed Ragland RN - 10/23/2022 8:11 AM EDT Patient's father phoned the clinic and stated her daughter was admitted to [facility] a few weeks ago. She had hypertension and was sent home on Norvasc 5 mg half tab per day the hospitalist. He stated herBP's are running high over the weekend. The latest BP was 170/108. He wanted her to be seen today. No appointments are available. Please advise. documented in this encounter Plan of Treatment Upcoming Encounters Date Type Specialty Care Team Description 10/27/2022 Cardiac Studies Cardiac Studies 10/27/2022 Cardiac Studies Cardiac Studies 11/01/2022 Telemedicine Gastroenterology Roma Galvez CRNP [address] [place] [address] 11/20/2022 Office Visit Cardiology Olivia Dempsey PA-C [address] [place] [address] 08/13/2023 Office Visit Sleep Disorders Karen Wilcox DO [address] [place] [address] Scheduled Orders Name Type Priority Associated Diagnoses Orde r Schedule EKG EKG Routine SOB (shortness of breath) Fluttering heart Hypertension goal BP (blood pressure) < 130/80 Expected: 10/27/2022 (Approximate), Expires: 11/27/2023 EXTERNAL EKG 2 TO 7 DAYS Holter Routine SOB (shortness of breath) Fluttering heart Hypertension goal BP (blood pressure) < 130/80 Expected: 10/27/2022 (Approximate), Expires: 10/28/2023 Scheduled Procedures Name Priority Associated Diagnoses Date/Ti [...] as of this encounter Visit Diagnoses Diagnosis SOB (shortness of breath)- Primary Shortness of breath Fluttering heart Ventricular flutter Hypertension goal BP (blood pressure) < 130/80 Unspecified essential hypertension documented in this encounter Care Teams Manufacturing Technician Relationship Specialty Start Date End Date Candice Rasmussen DO [address] [place] [address] PCP - General Family Medicine 05/20/12 documented as of this encounter
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
--- OUTSIDE RECORDS SUMMARY | 2022-12-24 17:24 | External Medical Summary | Summary of Care ---
Author Name Unknown Organization [facility] Address [address] [place] [address] Phone [phone] Care Team Providers Care Supervisor Publications Production Name Role Phone Grady Harvey Xiomara ZENG Primary Care Provider Reason for Visit * Reason Onset Date Comments Blood Pressure Check Blood Pressure Check 10/27/2022 Encounter Details Date Type Department Care Team Description 10/27/2022 Cardiac Studies Cardiac Studies, [facility] [address] [place] [address] Elevated blood pressure, situational* Allergies Active Allergy Reactions Severity Noted Date Comments Ketoconazole Rash Medium 07/17/2018 documented as of this encounter (statuses as of 10/27/2022) Medications Medication Sig Dispensed Refills Start Date End Date Status ZONISAMIDE 100 MG PO CAPS 1 capsule twice a day 0 Active nystatin 502170 UNIT/GM cream Apply topically to affected area [...] the morning. 90 Tablet 3 10/23/2022 Active documented as of this encounter (statuses [...] documented in this encounter Progress Notes * KOJO Reinoso - 10/27/2022 3:34 PM EDT Olivia Weston Lawrence presented for blood pressure check per [...] she "tries to do anything at all." Patient denies headache, pressure in head, dizziness, [...] Galvez CRNP [address] [place] [address] 11/20/2022 Office Visit Cardiology Olivia Dempsey PA-C [address] [place] [address] 08/13/2023 Office Visit Sleep Disorders Karen Wilcox [address] [place] [address] Scheduled Orders Name Type Priority Associated Diagnoses [...] hypertension documented in this encounter Care Teams Supervisor Publications Production Relationship Specialty Start Date End Date Keiter, Harvey Xiomara, [address] [place] [address] PCP - General Family Medicine 05/20/12 documented as of this encounter
--- OUTSIDE RECORDS SUMMARY | 2022-12-24 17:24 | External Medical Summary | Summary of Care ---
Author Name Unknown Organization [facility] Address [address] [place] [address] Phone [phone] Care Team Providers Care Baseball Umpire For [employer] Name Role Phone [employer] Candice Solano DO Primary Care Provider Reason for Visit * Reason Comments Outpatient Testing Encounter Details Date Type Department Care Team Description 09/11/2022 Laboratory Laboratory [facility] [address] [place] [id number] [facility] [address] [place] [id number] Polydipsia; Screening for lipoid disorders; Encounter for long-term (current) use of other medications; Spastic hemiplegic cerebral palsy (HCC); Malaise and fatigue Allergies Active Allergy Reactions Severity Noted Date Comments Ketoconazole Rash Medium 07/17/2018 documented as of this encounter (statuses as of 09/11/2022) Medications Medication Sig Dispensed Refills Start Date End Date Status ZONISAMIDE 100 MG PO CAPS 1 capsule twice a day 0 Active nystatin 115197 UNIT/GM cream Apply topically to affected area [...] Per neurology. 30 Tablet 0 09/11/2022 Active documented as of this encounter (statuses as of 09/11/2022) Active Problems Problem Noted Date History of [...] as of this encounter (statuses as of 09/11/2022) Resolved Problems Problem Noted Date Resolved Date Prolonged Q-T interval on ECG 03/30/2020 Epilepsy 01/08/2017 11/08/2017 documented as of this encounter (statuses as of 09/11/2022) Immunizations Name Administration Dates Next Due COVID-19 mRNA, LNP-s, No Pre serve, 2-Dose Series ([employer]) 03/29/2020,03/05/2020 Seasonal Influenza, Quadriva lent, No Preserve, 6 [employer] Above, IM 12/27/2021,10/17/2019,11/05/2018, 0 18,03/20/2017 TDAP (age 10 and [...] Galvez CRNP [address] [place] [address] 11/20/2022 Office Visit Cardiology Olivia Dempsey PA-C [address] [place] [address] 08/13/2023 Office Visit Sleep Disorders Karen Wilcox, [address] [place] [address] Pending Results Name Type Priority Associated Diagnoses Date /Time COMPREHENSIVE METABOLIC PANEL Lab Routine Polydipsia 09/11/2022 12:09 PM EDT HEMOGLOBIN A1C Lab Routine Polydipsia 09/11/2022 12:09 PM EDT TSH WITH FREE T4 IF INDICATED Lab Routine Polydipsia 09/11/2022 12:09 PM EDT LIPID PANEL WITH DIRECT LDL IF TG IS HIGH Lab Routine Screening for lipoid disorders 09/11/2022 12:09 PM EDT VALPROIC ACID LEVEL Lab Routine Encounter for long-term (current) use of other medications 09/11/2022 12:09 PM EDT CBC WITH WBC DIFFERENTIAL Lab Routine Spastic hemiplegic cerebral palsy (HCC) Malaise and fatigue 09/11/2022 12:09 PM EDT CBC Lab Routine Spastic hemiplegic cerebral palsy (HCC) Malaise and fatigue 09/11/2022 12:09 PM EDT DIFFERENTIAL, AUTOMATED Lab Routine Spastic hemiplegic cerebral palsy (HCC) Malaise and fatigue 09/11/2022 12:09 PM EDT Scheduled Procedures Name Priority Associated Diagnoses Date/Ti me COLONOSCOPY FLEXIBLE PROXIMAL DIAGNOSTIC Recall History of colon polyps Health Maintenance Due Date Last Done Comments Hepatitis B (1 of 3 - 3-dose series) 1983 HIV Screening 10/10/1998 Hepatitis C Screening 10/10/2001 HPV/Co-Test 10/10/2013 Cervical Cancer Screening 05/23/2018 Pap Smear 05/23/2018 05/24/2015 COVID-19 Vaccine (3 - Pfizer series) 05/24/2020 03/29/2020, 03/05/2020 Depression Screening, Annual for Pts 12 and Over 10/12/2020 10/13/2019 DTaP,Tdap,and Td Vaccines (2 - Td or Tdap) 04/24/2022 04/24/2012 Influenza Vaccine (FLU shot) (#1) 2022 12/27/2021, 10/17/2019, 11/05/2018, Additional history exists Diabetes Screening 05/05/2024 05/05/2021, 0 10/04/2020, 06/04/2020, Additional history exists COLONOSCOPY-EVERY 5 YRS AGES [...] as of this encounter Visit Diagnoses Diagnosis Polydipsia Screening for lipoid disorders Encounter for long-term (current) use of other medications Spastic hemiplegic cerebral palsy (HCC) Congenital hemiplegia Malaise and fatigue Other malaise and fatigue documented in this encounter Care Teams Baseball Umpire [employer] Relationship Specialty Start Date End Date Candice Rasmussen DO [address] [place], [place] [address] PCP - General Family Medicine 05/20/12 documented as of this encounter
--- OUTSIDE RECORDS SUMMARY | 2022-12-24 17:24 | External Medical Summary | Summary of Care ---
Author Name Unknown Organization [facility] Address [address] [place] [address] Phone [phone] Care Team Providers Care Bag Cutter Name Role Phone Grady Harvey Xiomara ZENG Primary Care Provider Reason for Visit * Reason Onset Date Comments Blood Pressure Check Blood Pressure Check 10/27/2022 Encounter Details Date Type Department Care Team Description 10/27/2022 Cardiac Studies Cardiac Studies, [facility] [address] [place] [address] Elevated blood pressure, situational* Allergies Active Allergy Reactions Severity Noted Date Comments Ketoconazole Rash Medium 07/17/2018 documented as of this encounter (statuses as of 10/30/2022) Medications Medication Sig Dispensed Refills Start Date End Date Status ZONISAMIDE 100 MG PO CAPS 1 capsule twice a day 0 Active nystatin 753064 UNIT/GM cream Apply topically to affected area [...] as of this encounter (statuses as of 10/30/2022) Active Problems Problem Noted Date Periorbital cellulitis [...] as of this encounter (statuses as of 10/30/2022) Resolved Problems Problem Noted Date Resolved Date Prolonged Q-T interval on ECG 03/30/2020 Epilepsy 01/08/2017 11/08/2017 documented as of this encounter (statuses as of 10/30/2022) Immunizations Name Administration Dates Next Due COVID-19 mRNA, LNP-s, No Pre serve, 2-Dose Series ([employer]) 03/29/2020,03/05/2020 COVID-19, mRNA, LNP-s, PF, B ooster, [...] Galvez CRNP [address] [place] [address] 11/20/2022 Office Visit Cardiology Olivia Dempsey PA-C [address] [place] [address] 08/13/2023 Office Visit Sleep Disorders Karen Wilcox DO [address] [place] [address] Scheduled Orders Name Type Priority Associated Diagnoses [...] hypertension documented in this encounter Care Teams Bag Cutter Relationship Specialty Start Date End Date Candice Rasmussen DO [address] [place] [address] PCP - General Family Medicine 05/20/12 documented as of this encounter
--- OUTSIDE RECORDS SUMMARY | 2022-12-24 17:24 | External Medical Summary | Summary of Care ---
Author Name Unknown Organization [facility] Address [address] [place] [address] Phone [phone] Care Team Providers Care Billing And Insurance Coordinator Name Role Phone Candice Rasmussen Primary Care Provider Reason for Visit * Reason Comments Acute The pt stated she almaraz s been having severe dizzy spells accompanied with fatigue. The pt stated she has been having urinary frequency. Encounter Details Date Type Department Care Team Description 09/11/2022 Office Visit [facility] [address] [place] [address] Nellie Villegas MD [address] [place] [address] Benign paroxysmal vertigo, unspecified laterality*; Spastic hemiplegic cerebral palsy (HCC); Urinary frequency; Partial idiopathic epilepsy with seizures of localized onset, not intractable, without status epilepticus (HCC); Malaise and fatigue Allergies Active Allergy Reactions Severity Noted Date Comments Ketoconazole Rash Medium 07/17/2018 documented as of this encounter (statuses as of 09/11/2022) Medications Medication Sig Dispensed Refills Start Date End Date Status ZONISAMIDE 100 MG PO CAPS 1 capsule twice a day 0 Active nystatin 727025 UNIT/GM cream Apply topically to affected area [...] for Dizziness. 30 Tablet 0 09/11/2022 Active documented as [...] mRNA, LNP-s, No Pre serve, 2-Dose Series ([employer]) 03/29/2020,03/05/2020 Seasonal Influenza, Quadriva lent, No Preserve, [...] Sign Reading Time Taken Comments Blood Pressure 108/74 09/11/2022 11:14 AM EDT Pulse 98 09/11/2022 11:14 AM EDT Temperature 36.3 C (97.4 F) 09/11/2022 11:14 AM E DT Respiratory Rate - - Oxygen Saturation 97% 09/11/2022 11:14 AM EDT Inhaled Oxygen Concentration - - Weight 78 kg (172 lb) 09/11/2022 11:14 AM EDT Height - - Body Mass Index 33.59 08/11/2022 11:25 AM EDT documented in this encounter Progress Notes * Nellie Villegas MD - 09/11/2022 11:19 AM EDT SUBJECTIVE: Olivia Lawrence is a 36 year old female. Chief Complaint Patient presents with Acute The pt stated she has been having severe dizzy spells accompanied with fatigue. The pt stated she has been having urinary frequency. HPI: In presents today for acute appointment accompanied by her dad with symptoms of some feeling lethargic slightly, mildly dizzy which is hard to describe for her, some vertigo. No uri sx, Slight fogginess, dose of Depakote was recently increased back at noon by her psychiatrist, now also on both clonazepam and clobazam per her neurologist. Mild fatigue, does not get her period as on ct ocp. Also admits to urinary frequency, no dysuria or hematuria. No fever or chills. No constipation. History of hemiplegiccerebral palsy, partial idiopathic epilepsy, chronic anxiety / depression/ mood disorder followed by psychiatrist Dr. Hendrickson, had video EEG to determine the nature of her seizure disorder at in april BP Readings from Last 4 Encounters: 09/11/22 108/74 08/11/22 118/64 06/26/22 118/82 05/20/22 120/80 Hemoglobin Results: Lab Results Component Value Date/Time HGB - [facility] 13.7 05/05/2021 04:23 PM [facility] - [facility] 12.2 10/04/2020 04:48 PM [facility] - [facility] 13.2 05/22/2020 11:26 AM [facility] - [facility] 13.7 12/15/2019 10:36 AM HGB - [facility] 14.2 11/05/2018 03:11 PM HGB - [facility] 13.7 07/16/2018 03:01 PM Patient Active Problem List Diagnosis Code Epilepsy ([facility]) G40.909 Depression F32.A Mood disorder ([facility]) F39 OCD (obsessive compulsive disorder) F42.9 Hydrocephalus ([facility]) G91.9 CP (cerebral palsy) ([facility]) G80.9 Sprain of left wrist S63.502A Cutaneous candidiasis B37.2 Hyperprolactinemia ([facility]) E22.1 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 To affacted area for two weeks. 15 g 2 nystatin (NYSTOP) powder Apply topically to affected area 3 times a day. Sprinkle over affectedarea. 1 Bottle 0 cetirizine (ZYRTEC ALLERGY) 10 MG Tablet Take 1 Tab by mouth daily. (Patient taking differently: Take 1 Tablet by mouth in the morning. 1/2 a tablet in the morning.) Polyethylene Glycol 3350 17 GM Oral Packet Take 1 Packet by mouth every other day as needed forConstipation. Bisacodyl 10 MG Rectal Suppository (Dulcolax) Administer 1 Suppository into the rectum daily asneeded for Constipation. Do not use for more [...] mouth in the morning. 90 Capsule 3 03/03 1-20 MG-MCG Oral Tablet (Norethindrone Acet-Ethinyl Est) TAKE 1 TABLET BY MOUTH DAILY FOR 3 WEEKS THEN START NEXT PACK, CONTINUOUS USE 84 Tablet 1 Pyridoxine HCl 100 MG Oral Tablet Take by mouth once. In the morning (Patient not taking: Reported on 09/11/2022) No current facility-administered medications for this visit. Review of patient's allergies indicates: Allergen Reactions Ketoconazole Rash OBJECTIVE: BP 108/74 | Pulse 98 | Temp 36.3 C (97.4 F) | Wt 78 kg (172 lb) | SpO2 97% | BMI 33.59 kg/m |BSA 1.82 m PHYSICAL EXAM: General: alert, healthy, no distress, well nourished and well developed Eyes: conjunctiva non-injected, sclera white, gaze conjugate, EOMI, PERRLA, no nystagmus Ears: pinna normal shape and color, canals patent and TM - nml Nose: no mucosal erythema, no mucosal edema and no purulent discharge Mouth: no exudate, uvula moves centrally Neck: supple, no adenopathy, no bruits, thyroid normal size, non-tender, without nodularity Heart: regular rate & rhythm, no gallops /murmurs. Lungs: lungs clear to auscultation Neuro: alert, gait normal, motor normal, Neg cerebellar signs. ASSESSMENT/PLAN: Benign paroxysmal vertigo, unspecified laterality (Primary) - Meclizine HCl 12.5 MG Oral Tablet (Antivert); Take 1 Tablet by mouth 3 times a day as needed for Dizziness. Spastic hemiplegic cerebral palsy (HCC) - CBC WITH WBC DIFFERENTIAL; Future; Expected date: 09/11/2022 Urinary frequency - URINALYSIS, REFLEX TO MICROSCOPIC; Future; Expected date: 09/11/2022 - CULTURE, URINE, QUANTITATIVE; Future; Expected date: 09/11/2022 - CULTURE, URINE, QUANTITATIVE - URINALYSIS, REFLEX TO MICROSCOPIC Partial idiopathic epilepsy with seizures of localized onset, not intractable, without status epilepticus (HCC) Malaise and fatigue - CBC WITH WBC DIFFERENTIAL; Future; Expected date: 09/11/2022 Follow Up: Return if symptoms worsen or fail to improve, for Labs Today. | For: Labs Today | Check-out note: Pl evan CPE with PCP next available --labs-normal CBC, CMP, urinalysis (This note was completed using the dictation program Fluency Direct. As such, there may be misspellings, word substitutions, or other variations that should not change the essence of the clinical content of this encounter note. If there is need for further clarification, please direct questions to the provider listed above.) Patient and / caregiver verbalize understanding of above instructions and agrees with plan of care. Nellie Villegas MD 09/11/2022 documented in this encounter Nursing Notes * Cal Kulkarni LPN - 09/11/2022 11:13 AM EDT Chief Complaint Patient presents with Acute The pt stated she has been having severe dizzy spells accompanied with fatigue. The pt stated she has been having urinary frequency. documented in this encounter Plan of Treatment Upcoming Encounters Date Type Specialty Care Team Description 11/01/2022 Telemedicine Gastroenterology Roma Galvez CRNP [address] [place] [address] 11/20/2022 Office Visit Cardiology Olivia Dempsey PA-C [address] [place] [address] 08/13/2023 Office Visit Sleep Disorders Karen Wilcox, [address] [place] [address] Pending Results Name Type Priority Associated Diagnoses Date /Time CULTURE, URINE, QUANTITATIVE Lab Routine Urinary frequency 09/11/2022 11:43 AM EDT Scheduled Orders Name Type Priority Associated Diagnoses Orde r Schedule CULTURE, URINE, QUANTITATIVE Lab Routine Urinary frequency Expected: 09/11/2022 (Approximate), Expires: 09/12/2023 Scheduled Procedures Name Priority Associated Diagnoses Date/Ti [...] history exists Diabetes Screening 09/11/2025 09/11/2022, 0 05/05/2021, 10/04/2020, Additional history exists COLONOSCOPY-EVERY 5 YRS AGES [...] Procedure Name Priority Date/Time Associated Diagnosis Comments URINALYSIS, REFLEX TO MICROSCOPIC STAT 09/11/2022 11:43 AM EDT Urinary frequency documented in this encounter Results * URINALYSIS, REFLEX TO MICROSCOPIC (09/11/2022 11:43 AM EDT) Color, Urine Yellow Light Yellow, Yellow, Dark Yellow 09/11/2022 12:02 PM EDT [facility] Clarity, Urine Clear Clear 09/11/2022 12:02 PM EDT [facility] 56 Glucose, Urine Negative Negative mg/dL 09/11/2022 12:02 PM EDT [facility] 56- Bilirubin, Urine Negative Negative 09/11/2022 12:02 PM EDT [facility] 56 Ketone, Urine Negative Negative mg/dL 09/11/2022 12:02 PM EDT [facility] 56 Specific [place], Urine 1.010 1.003 - 1.030 09/11/2022 12:02 PM EDT [facility] 56- Blood, Urine Negative Negative 09/11/2022 12:02 PM EDT [facility] 56- pH, Urine 7.0 5.0 - 7.5 Units 09/11/2022 12:02 PM EDT [facility] 56- Protein, Urine Negative Negative mg/dL 09/11/2022 12:02 PM EDT [facility] 56- Urobilinogen, Urine 0.2 0.2, 1.0 mg/dL 09/11/2022 12:02 PM EDT [facility] 56- Nitrite, Urine Negative Negative 09/11/2022 12:02 PM EDT [facility] 56- Esterase, Urine Negative Negative 12:02 PM EDT [facility] 56-02 Comment, Urine 09/11/2022 12:02 PM EDT [facility] 56-02 Comment:Screen negative - Mi croscopic not performed. 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
--- OUTSIDE RECORDS SUMMARY | 2022-12-24 17:25 | External Medical Summary ---
Author Name Unknown Address Unknown Organization [id number]:[facility] [place] - [address] [place] [address] Laboratory Report Ordering Provider Test Date Status CESILIA RDZ 09/11/2022 12:09:25 Final Observation Date Value Abnormality Reference (Units ) Status TSH 09/11/2022 12:09:25 2.36 0.27-4.20 (uIU/mL) Final Performing Location [facility] - [address] [place] [address]
--- OUTSIDE RECORDS SUMMARY | 2022-12-24 17:25 | External Medical Summary ---
Author Name Unknown Address Unknown Organization [id number]:[facility] [place] - [address] [facility] [address] Laboratory Report Ordering Provider Test Date Status CESILIA RDZ 09/11/2022 12:09:25 Final Observation Date Value Abnormality Reference (Units ) Status HbA1C 09/11/2022 12:09:25 5.5 4.0-5.6 (% ) Final The use of HbA1c to monitor glycemic status is based on normal hemoglobin and HbA composition. This test should not be used in patients with abnormal hemoglobin that affects the half life of the red blood cell or the in vivo glycation rates. Glucose, estimated average 09/11/2022 12:09:25 111 <126 (mg/dL) Final Performing Location [facility] [place] - [address] [facility] [address]
--- OUTSIDE RECORDS SUMMARY | 2022-12-24 17:25 | External Medical Summary | Summary of Care ---
Author Name Unknown Organization [facility] Address [address] [place] [address] Phone [phone] Care Team Providers Care Geographic Information Systems Manager Name Role Phone Hectorkenneth Harvey Xiomara Primary Care Provider Reason for Visit * Reason Comments Follow Up Sleep Problems Encounter Details Date Type Department Care Team Description 08/11/2022 Office Visit Sleep Disorders [facility]tr [facility] [address] [place] [address] Karen Wilcox DO [address] [facility] [place] [address] Obstructive sleep apnea* Allergies Active Allergy Reactions Severity Noted Date Comments Ketoconazole Rash Medium 07/17/2018 documented as of this encounter (statuses as of 08/11/2022) Medications Medication Sig Dispensed Refills Start Date End Date Status ZONISAMIDE 100 MG PO CAPS 1 capsule twice a day 0 Active nystatin 243620 UNIT/GM cream Apply topically to affected area [...] Take 3 tablets by mouth in the morning and 1 tablet by mouth at night [...] CONTINUOUS USE 84 Tablet 1 07/15/2022 Active risperiDONE 0.5 MG Oral Tablet (RisperDAL) TAKE 1 TABLET BY MOUTH DAILY WITH 1 MG IN THE MORNING TO EQUAL 1.5MG 0 04/10/2022 08/12/19 23 Discontinu ed(Patient preference /discontin uation) documented as of this encounter (statuses as of 08/11/2022) Active Problems Problem Noted Date History of [...] as of this encounter (statuses as of 08/11/2022) Resolved Problems Problem Noted Date Resolved Date Prolonged Q-T interval on ECG 03/30/2020 Epilepsy 01/08/2017 11/08/2017 documented as of this encounter (statuses as of 08/11/2022) Immunizations Name Administration Dates Next Due COVID-19 mRNA, LNP-s, No Pre serve, 2-Dose Series ([employer]) 03/29/2020,03/05/2020 Seasonal Influenza, Quadriva lent, No Preserve, [...] Sign Reading Time Taken Comments Blood Pressure 118/64 08/11/2022 11:25 AM EDT Pulse 97 08/11/2022 11:25 AM EDT Temperature 36.4 C (97.6 F) 08/11/2022 11:25 AM E DT Respiratory Rate 16 08/11/2022 11:25 AM EDT Oxygen Saturation 98% 08/11/2022 11:25 AM EDT Inhaled Oxygen Concentration - - Weight 79.8 kg (176 lb) 08/11/2022 11:25 AM EDT Height 152.4 cm (5') 08/11/2022 11:25 AM EDT Body Mass Index 34.37 08/11/2022 11:25 AM EDT documented in this encounter Progress Notes * Karen Wilcox, DO - 08/11/2022 11:20 AM EDT Sleep Medicine Follow-Up HISTORY: Olivia Lawernce is a 36 year old female for follow up of moderate SHRUTHI. Accompanied by caregiver. Initially seen03/19/2020with excessive sleepiness (sleeping 14 hours/day), snoring, witnessed apneas.[place] 10, FOSQ 22. Hx CP, epilepsy, depression. She does not drive. HST attempted with insufficient recording. Split-nightPS06/09/2020with AHI 17.9 (predominantly obstructive apneas), SpO2 jones 87%, time<90% 2 minutes. Titrated to 12 cmH2O with residual AHI 0.7 and SpO2 jones 92%.PLMI 9.3 baseline, 3.1 treatment portion. Started CPAP 12 cmH2O. 07/27/20: she seemed better rested with CPAP, but had trouble with mask fit / unable to get the maskback on by herself. [place] 3. Residual AHI 9.3 on CPAP 12 cwp. Adjusted to APAP 12-16 cwp. Requested DME and occupational therapist to help find a mask that pt would best be able to manage on her own overnight. Last seen 10/27/20. Using [id number]. Sleeping 10-11 hours/night. Residual AHI 5.5; adjustedCPAP to 13-17 cwp. Received message from PCP 04/2022 regarding increased burping, concern for aerophagia. Adjusted to 12-17 cwp. 05/05/22: burping seemed a little less with adjusted pressure range, but still getting bloated. Still finding it difficult to re-place the mask on her own overnight, due to only having use of one arm.Adjusted CPAP to 10-17 cwp due to persistent aerophagia. Using CPAP 10-17 cmH2O. She was in the hospital and medications were adjusted. No recent seizure. Aerophagia does seem improved. Sleep schedule is: 10 PM to 7-7:20 AM Nighttime awakenings: twice to the bathroom (needs help getting up to the bathroom overnight) Subjective PAP adherence: excellent Snoring on PAP: no Daytime sleepiness: no Interface: FFM + mouthbreathing. Mask leak: not much Dry nose or dry mouth: not much, uses lip balm Aerophagia: not much, sometimes feels bloated depending on food intake/speed. Recent weight change: no [place] Sleepiness Scale: 3 Travel Screening Question 08/11/2022 11:18 AM EDT - Filed by Patient Do you have any of the following new or worsening symptoms? None of these Have you recently been in contact with someone who was sick? No / Unsure [place] Sleepiness Scale Question 08/11/2022 11:31 AM EDT - Filed by Emelia Wang LPN What is the chance you will doze off in the following situation? Sitting and reading No chance of dozing Watching TV Slight chance of dozing Sitting inactive in a public place, such as a theater or meeting No chance of dozing As a passenger in a car for an hour without a break Slight chance of dozing Lying down to rest in the afternoon when circumstances permit Slight chance of dozing When sitting and talking to someone No chance of dozing When sitting quietly after lunch without alcohol No chance of dozing In a car, while stopped for a few minutes in traffic No chance of dozing Score (range: 0 - 24) 3 CPAP Compliance: Report date: 08/08/22 % total days used: 100% % days used > 4 hours: 100% Average hours per day used: 9h 1m Large leak: 8 sec/day AHI: 3.3 /hr Mean pressure: 12.6 cmH2O 90%ile pressure: 16.9 cmH2O Pressure settin-17 cmH2O Equipment: DME Provider is [facility] Uses a DS2. 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 Benign neoplasm of pituitary gland (HCC) D35.2 Other hydrocephalus (HCC) G91.8 Spastic hemiplegic cerebral palsy (HCC) G80.2 Partial idiopathic epilepsy with seizures of localized onset, not intractable, without status epilepticus (HCC) G40.009 History of prolonged Q-T interval on ECG Z87.898 Outpatient Medications Marked as Taking for the 08/11/22 encounter (Office Visit) with Karen Wilcox, DO Medication Sig Junel 03/03 1-20 MG-MCG Oral Tablet (Norethindrone [...] Take 3 tablets by mouth in the morning and 1 tablet by mouth at night cloBAZam 10 MG Oral Tablet (Onfi) Take 0.5 Tablets by mouth in the morning. DULoxetine HCl 60 MG Oral Capsule Delayed Release Particles (Cymbalta) Take 1 Capsule by mouth in the morning. Do not cut, crush or chew. risperiDONE 1 MG Oral Tablet Take 1 Tablet by mouth in the morning and 1 Tablet before bedtime. LORazepam 0.5 MG Oral Tablet Take 0.5 Tablets by mouth as needed. ZONISAMIDE 100 MG PO CAPS 1 capsule twice a day PHYSICAL EXAM: BP 118/64 | Pulse 97 | Temp 36.4 C (97.6 F) (Tympanic) | Resp 16 | Ht 1.524 m (5') | Wt 79.8 kg(176 lb) | SpO2 98% | BMI 34.37 kg/m | BSA 1.84 m General: alert, no acute distress Head: NC/AT Lungs: normal respiratory effort Neuro: speech appropriate, ambulates independently (with ankle brace) ASSESSMENT/PLAN: Obstructive sleep apnea - moderate by AHI criteria - excellent adherence; encourage continued use of CPAP with all sleep - excellent efficacy of therapy, and aerophagia is less bothersome now; continue PAP at current setting 10-17 cmH2O - DME: [facility] - Routine cleaning and change of supplies as needed. - Continue to avoid driving when feeling sleepy/drowsy. Every so often check if new mask style that is easy to manage one-handed. Jeanna's adhesive style interface unfortunately does not have a FFM option (she needs FFM due to needing to mouth-breathe). Follow-up with Sleep Medicine in 1 year. Karen Wilcox DO documented in this encounter Nursing Notes * Emelia Wang LPN - 08/11/2022 11:31 AM EDT Chief Complaint Patient presents with Follow Up Sleep Problems Cpap DME: [facility] Travel Screening Question 08/11/2022 11:18 AM EDT - Filed by Patient Do you have any of the following new or worsening symptoms? None of these Have you recently been in contact with someone who was sick? No / Unsure [place] Sleepiness Scale Question 08/11/2022 11:31 AM EDT - Filed by Emelia Wang LPN What is the chance you will doze off in the following situation? Sitting and reading No chance of dozing Watching TV Slight chance of dozing Sitting inactive in a public place, such as a theater or meeting No chance of dozing As a passenger in a car for an hour without a break Slight chance of dozing Lying down to rest in the afternoon when circumstances permit Slight chance of dozing When sitting and talking to someone No chance of dozing When sitting quietly after lunch without alcohol No chance of dozing In a car, while stopped for a few minutes in traffic No chance of dozing Score (range: 0 - 24) 3 documented in this encounter Plan of Treatment Upcoming Encounters Date Type Specialty Care Team Description 11/01/2022 Telemedicine Gastroenterology Roma Galvez CRNP [address] [place] [address] 11/20/2022 Office Visit Cardiology Olivia Dempsey PA-C [address] [place] [address] 08/13/2023 Office Visit Sleep Disorders Karen Wilcox DO [address] [place] [address] Scheduled Procedures Name Priority Associated Diagnoses Date/Ti me COLONOSCOPY FLEXIBLE PROXIMAL DIAGNOSTIC Recall History of colon polyps Health Maintenance Due Date Last Done Comments Hepatitis B (1 of 3 - 3-dose series) 1983 HIV Screening 10/10/1998 Hepatitis C Screening 10/10/2001 Pap Smear 05/23/2020 05/24/2015 COVID-19 Vaccine (3 - Pfizer series) 05/24/2020 03/29/2020, 03/05/2020 Depression Screening, Annual for Pts 12 and Over 10/12/2020 10/13/2019 DTaP,Tdap,and Td Vaccines (2 - Td or Tdap) 04/24/2022 04/24/2012 Diabetes Screening 05/05/2024 05/05/2021, 0 10/04/2020, 06/04/2020, Additional history exists COLONOSCOPY-EVERY 5 YRS AGES 18-100 05/26/2026 05/26/2021 Influenza Vaccine (FLU shot) Completed , 10/17/2019, 11/05/2018, Additional history exists GARDASIL-HPV IMMUNIZATION SERIES Aged Out No longer [...] as of this encounter Visit Diagnoses Diagnosis Obstructive sleep apnea- Primary Obstructive sleep apnea (adult) (pediatric) documented in this encounter Care Teams Geographic Information Systems Manager Relationship Specialty Start Date End Date Candice Rasmussen DO [address] [place], [place] [address] PCP - General Family Medicine 05/20/12 documented as of this encounter"
--- OUTSIDE RECORDS SUMMARY | 2022-12-24 17:25 | External Medical Summary | Summary of Care ---
Author Name Unknown Organization [facility] Address [address] [place] [address] Phone [phone] Care Team Providers Care Sole Trimmer Name Role Phone Candice Rasmussen Primary Care Provider Reason for Visit * Reason Onset Date Comments Test Results 08/25/2022 Encounter Details Date Type Department Care Team Description 08/25/2022 Telephone General Internal Medicine [facility] [address] [facility] [place] [address] Nellie Villegas MD [address] [place] [address] Test Results Allergies Active Allergy Reactions Severity Noted Date Comments Ketoconazole Rash Medium 07/17/2018 documented as of this encounter (statuses as of 08/25/2022) Medications Medication Sig Dispensed Refills Start Date End Date Status ZONISAMIDE 100 MG PO CAPS 1 capsule twice a day 0 Active nystatin 972092 UNIT/GM cream Apply topically to affected area [...] CONTINUOUS USE 84 Tablet 1 07/15/2022 Active documented as of this encounter (statuses as of 08/25/2022) Active Problems Problem Noted Date History of [...] as of this encounter (statuses as of 08/25/2022) Resolved Problems Problem Noted Date Resolved Date Prolonged Q-T interval on ECG 03/30/2020 Epilepsy 01/08/2017 11/08/2017 documented as of this encounter (statuses as of 08/25/2022) Immunizations Name Administration Dates Next Due COVID-19 mRNA, LNP-s, No Pre serve, 2-Dose Series (Pfizer) 03/29/2020,03/05/2020 Seasonal Influenza, Quadriva lent, No Preserve, [...] encounter Miscellaneous Notes * Telephone Encounter - Cal Kulkarni LPN - 08/25/2022 12:21 PM EDT Provider to address: Nellie Villegas MD Reason for Call: Test Results Contact: Telephone Call Contact Type: Test Results Outcome: patient's mother informed and voiced understanding. Total Time including non face to face (minutes): 5 * Telephone Encounter - Cal Kulkarni LPN - 08/25/2022 12:20 PM EDT ----- Message from Nellie Villegas MD sent at 08/18/2022 5:28 PM EDT ----- Bilateral diagnostic mammogram -no abnormalities noted Left breast ultrasound-cluster of cysts seen in the left breast 6 x 3 x 7 mm. -next screening mammogram at age 38 documented in this encounter Plan of Treatment Upcoming Encounters Date Type Specialty Care Team Description 11/01/2022 Telemedicine Gastroenterology Roma Galvez CRNP [address] [place] [address] 11/20/2022 Office Visit Cardiology Olivia Dempsey PA-C [address] [place] [address] 08/13/2023 Office Visit Sleep Disorders Karen Wilcox DO [address] [place] [address] Scheduled Procedures Name Priority Associated Diagnoses Date/Ti [...] filedocumented as of this encounter Care Teams Sole Trimmer Relationship Specialty Start Date End Date Candice Rasmussen DO [address] [place] [address] PCP - General Family Medicine 05/20/12 documented as of this encounter
--- OUTSIDE RECORDS SUMMARY | 2022-12-24 17:25 | External Medical Summary ---
Author Name Unknown Address Unknown Organization [id number]:[facility] [address] [place] [address] Laboratory Report Ordering Provider Test Date Status JESUS WEAVER 09/11/2022 12:09:25 Final Observation Date Value Abnormality Reference (Units ) Status SYNC LEUKOCYTES IN BLOOD BY AUTOMATED COUNT 09/11/2022 12:09:25 4.47 4.00-10.80 (K/uL) Final Segs 09/11/2022 12:09:25 54.2 40.0-75.0 (%) Final Lymphs % 09/11/2022 12:09:25 28.6 18.0-42.0 (%) Final Monos 09/11/2022 12:09:25 16.6 Above high normal 1.0-11.0 (%) Final Eosinophils 09/11/2022 12:09:25 0.4 0.0-6.0 (%) Final Basos 09/11/2022 12:09:25 0.2 0.0-2.0 (%) Final Absolute Segs 09/11/2022 12:09:25 2.42 1.80-7.70 (K/uL) Final Lymphs, absolute 09/11/2022 12:09:25 1.28 1.00-4.80 (K/ul) Final Monos, Abs 09/11/2022 12:09:25 0.74 0.00-1.10 (K/uL) Final Eos, Abs 09/11/2022 12:09:25 0.02 0.00-0.70 (K/uL) Final Basos, Abs 09/11/2022 12:09:25 0.01 0.00-0.20 (K/uL) Final Performing Location [facility] [place] [address]
--- OUTSIDE RECORDS SUMMARY | 2022-12-24 17:25 | External Medical Summary ---
Author Name Unknown Address Unknown Organization [id number][facility] [place] [address] [facility] [id number] Laboratory Report Ordering Provider Test Date Status CESILIA RDZ 09/11/2022 12:09:25 Final Observation Date Value Abnormality Reference (Units ) Status Triglyceride 09/11/2022 12:09:25 153 <=174 ( mg/dL) Final Triglyceride Reference Range s (mg/dL):
<150 Acceptable
150-174 Borderline high
175-499 High
>=500 Very high Cholesterol 09/11/2022 12:09:25 144 <200 (mg /dL) Final Total Cholesterol Reference Ranges (mg/dL):
<200 Desirable
200-239 Borderline high
>=240 High HDL 09/11/2022 12:09:25 36 Below low normal >49 (mg/dL) Final HDL Cholesterol Reference Ra nges (mg/dL):
>=60 High (Desirable)
<50 Low (Undesirable) For Females
<40 Low (Undesirable) For Males NON-HDL CHOLESTEROL 09/11/2022 12:09:25 108 <=159 (mg/dL) Final Non-HDL Cholesterol Referenc e Range (mg/dL):
<100 Target level for high risk ASCVD patient
<130 Optimal for general population
130-159 Near optimal for general population
160-189 Borderline High
190-219 High
>=220 Very High LDL, (calculated) 09/11/2022 12:09:25 77 <= 129 (mg/dL) Final LDL Cholesterol Reference Ra nges (mg/dL):
<70 Target level for high risk ASCVD patient
<100 Optimal for general population
100-129 Near optimal for general population
130-159 Borderline high
160-189 High
>=190 Very high Performing Location [facility] [place] [address] [facility] [address]
--- OUTSIDE RECORDS SUMMARY | 2022-12-24 17:25 | External Medical Summary | Summary of Care ---
Author Name Unknown Organization [facility] Address [address] [place] [address] Phone [phone] Care Team Providers Care Carriage Rider Name Role Phone Candice Rasmussen Primary Care Provider Encounter Details Date Type Department Care Team Description 08/14/2022 Telephone Sleep Disorders [facility] [address] [facility] [place] [address] Karen Wilcox DO [address] [facility] [place] [address] Allergies Active Allergy Reactions Severity Noted Date Comments Ketoconazole Rash Medium 07/17/2018 documented as of this encounter (statuses as of 08/14/2022) Medications Medication Sig Dispensed Refills Start Date End Date Status ZONISAMIDE 100 MG PO CAPS 1 capsule twice a day 0 Active nystatin 670282 UNIT/GM cream Apply topically to affected area [...] as of this encounter (statuses as of 08/14/2022) Active Problems Problem Noted Date History of [...] as of this encounter (statuses as of 08/14/2022) Resolved Problems Problem Noted Date Resolved Date Prolonged Q-T interval on ECG 03/30/2020 Epilepsy 01/08/2017 11/08/2017 documented as of this encounter (statuses as of 08/14/2022) Immunizations Name Administration Dates Next Due COVID-19 [...] encounter Miscellaneous Notes * Telephone Encounter - Chaim Quinn - 08/14/2022 9:01 AM EDT Orders in 08/14 documented in this encounter Plan of Treatment Upcoming Encounters Date Type Specialty Care Team Description 11/01/2022 Telemedicine Gastroenterology Roma Galvez CRNP [address] [place] [address] 11/20/2022 Office Visit Cardiology Olivia Dempsey PA-C [address] [place] [address] 08/13/2023 Office Visit Sleep Disorders Karen Wilcox DO [address] [place] [address] Scheduled Procedures Name Priority Associated Diagnoses Date/Ti [...] filedocumented as of this encounter Care Teams Carriage Rider Relationship Specialty Start Date End Date Candice Rasmussen DO [address] [place] [address] PCP - General Family Medicine 05/20/12 documented as of this encounter
--- OUTSIDE RECORDS SUMMARY | 2022-12-24 17:25 | External Medical Summary ---
Author Name Unknown Address Unknown Organization [id number]:[facility] [place] - [address] [place] [id number] Laboratory Report Ordering Provider Test Date Status JESUS WEAVER 09/11/2022 11:43:34 Final Observation Date Value Abnormality Reference (Units) Status Bacteria identified in Unspecified specimen by Culture 09/11/2022 11:43:34 No significant growth Final Test: Culture, Urine, Quanti tative
Specimen Source: Urine, Clean Catch
Specimen Type: Urine
Specimen Date: 09/11/2022 11:43 AM
Result Date: 09/12/2022 12:59 PM
Result Status: Final result
Resulting Lab: [facility] [place]
[address]
[place] [address]

CULTURE

No significant growth

null Performing Location [facility] [place] - [address] [facility] [address]
--- OUTSIDE RECORDS SUMMARY | 2022-12-24 17:25 | External Medical Summary ---
Author Name Unknown Address Unknown Organization [id number] [place] [address] [place] [address] Laboratory Report Ordering Provider Test Date Status BRENTON DOMINIQUE 09/11/2022 12:09:25 Final Hold morning Depakote until after lab is drawn Observation Date Value Abnormality Reference (Units ) Status Valproic Acid, level 09/11/2022 12:09:25 61 50-100 (ug/mL) Final Performing Location [facility] - [address] [place] [address]
--- OUTSIDE RECORDS SUMMARY | 2022-12-24 17:25 | External Medical Summary | Summary of Care ---
Author Name Unknown Organization [facility] Address [address] [place] [address] Phone [phone] Care Team Providers Care Hand Spring Repairer Name Role Phone Candice Rasmussen DO Primary Care Provider Reason for Visit * Reason Comments eRx-Medication Refill Encounter Details Date Type Department Care Team Description 07/14/2022 Refill Family Practice [facility] [address] [facility] [place] [address] Candice Rasmussen DO [address] [facility] [place] [address] Allergic drug rash Allergies Active Allergy Reactions Severity Noted Date Comments Ketoconazole Rash Medium 07/17/2018 documented as of this encounter (statuses as of 07/15/2022) Medications Medication Sig Dispensed Refills Start Date End Date Status ZONISAMIDE 100 MG PO CAPS 1 capsule twice a day 0 Active nystatin 544557 UNIT/GM cream Apply topically to affected area [...] by mouth at night 0 3 Active risperiDONE 0.5 MG Oral Tablet (RisperDAL) TAKE 1 TABLET BY MOUTH DAILY WITH 1 MG IN THE MORNING TO EQUAL 1.5MG 0 3 Active Lacosamide 200 MG Oral [...] CONTINUOUS USE 84 Tablet 1 3 Active Junel 03/03 1-20 MG-MCG Oral Tablet (Norethindrone Acet-Ethinyl Est)Indications:A llergic drug rash TAKE 1 TABLET BY MOUTH DAILY FOR 3 WEEKS THEN START NEXT PACK, CONTINUOUS USE 84 Tablet 2 2 07/16/19 23 Discontinued documented as of this encounter (statuses as of 07/15/2022) Active Problems Problem Noted Date History of [...] as of this encounter (statuses as of 07/15/2022) Resolved Problems Problem Noted Date Resolved Date Prolonged Q-T interval on ECG 03/30/2020 Epilepsy 01/08/2017 11/08/2017 documented as of this encounter (statuses as of 07/15/2022) Immunizations Name Administration Dates Next Due COVID-19 mRNA, LNP-s, No Pre serve, 2-Dose Series (Jobydu) 03/29/2020,03/05/2020 Seasonal Influenza, Quadriva lent, No Preserve, [...] encounter Miscellaneous Notes * Telephone Encounter - Clayton Ng [facility] - 07/15/2022 6:51 PM EDT Signed Prescriptions: Disp Refills 03/03 1-20 MG-MCG Oral Tablet (Noreth*84 Tab*1 Sig: TAKE 1 TABLET BY MOUTH DAILY FOR 3 WEEKS THEN START NEXT PACK, CONTINUOUS USEAuthorizing Provider: CANDICE RASMUSSEN User: CLAYTON NG documented in this encounter Plan of Treatment Upcoming Encounters Date Type Specialty Care Team Description 07/24/2022 Imaging Radiology 07/24/2022 Imaging Radiology 07/28/2022 Office Visit Cardiology Olivia Dempsey PA-C [address] [place] [address] 08/11/2022 Office Visit Sleep Disorders Karen Wilcox DO [address] [place] [address] 09/04/2022 Telemedicine Gastroenterology Roma Galvez CRNP [address] [place] [address] Scheduled Procedures Name Priority Associated Diagnoses Date/Ti me COLONOSCOPY FLEXIBLE PROXIMAL DIAGNOSTIC Recall History of colon polyps Health Maintenance Due Date Last Done Comments Hepatitis B (1 of 3 - 3-dose series) 1983 HIV Screening 10/10/1998 Hepatitis C Screening 10/10/2001 Pap Smear 05/23/2020 05/24/2015 COVID-19 Vaccine (3 - Booster for Pfizer series) 05/24/2020 03/29/2020, 03/05/2020 Depression Screening, [...] as of this encounter Visit Diagnoses Diagnosis Allergic drug rash Dermatitis due to drugs and medicines taken internally documented in this encounter Care Teams Hand Spring Repairer Relationship Specialty Start Date End Date Candice Rasmussen DO [address] [place] [address] PCP - General Family Medicine 05/20/12 documented as of this encounter
--- OUTSIDE RECORDS SUMMARY | 2022-12-24 17:25 | External Medical Summary | Summary of Care ---
Author Name Unknown Organization [facility] Address [address] [place] [address] Phone [phone] Care Team Providers Care Properties Supervisor Name Role Phone Candice Rasmussen DO Primary Care Provider Encounter Details Date Type Department Care Team Description 07/05/2022 Telephone Family Practice [facility] [place] [address] [facility] [place] [address] Candice Rasmussen DO [address] [facility] [place] [address] Allergies Active Allergy Reactions Severity Noted Date Comments Ketoconazole Rash Medium 07/17/2018 documented as of this encounter (statuses as of 07/05/2022) Medications Medication Sig Dispensed Refills Start Date End Date Status ZONISAMIDE 100 MG PO CAPS 1 capsule twice a day 0 Active nystatin 889257 UNIT/GM cream Apply topically to affected area [...] 1 Tablet before bedtime. 0 09/30/2021 Active Junel 03/03 1-20 MG-MCG Oral Tablet (Norethindrone Acet-Ethinyl Est)Indications:Al lergic drug rash TAKE 1 TABLET BY MOUTH DAILY FOR 3 WEEKS THEN START NEXT PACK, CONTINUOUS USE 84 Tablet 2 11/04/2021 Active cloBAZam 10 MG Oral Tablet (Onfi) Take 0.5 Tablets by mouth in the morning. 0 12/07/2021 Active Divalproex Sodium 250 MG Oral Tablet Delayed Release (Depakote DR) Take 3 tablets by mouth in the morning and 1 tablet by mouth at night 0 03/15/2022 Active risperiDONE 0.5 MG Oral Tablet (RisperDAL) TAKE 1 TABLET BY MOUTH DAILY WITH 1 MG IN THE MORNING TO EQUAL 1.5MG 0 04/10/2022 Active Lacosamide 200 MG Oral Tablet (Vimpat) Take 1 tablet (200 mg total) by mouth 3 (three) times daily. 0 03/31/2022 Active Omeprazole 40 MG Oral Capsule Delayed Release (PriLOSEC) Take 1 Capsule by mouth in the morning. 90 Capsule 3 05/09/2022 Active documented as of this encounter (statuses as of 07/05/2022) Active Problems Problem Noted Date History of [...] as of this encounter (statuses as of 07/05/2022) Resolved Problems Problem Noted Date Resolved Date Prolonged Q-T interval on ECG 03/30/2020 Epilepsy 01/08/2017 11/08/2017 documented as of this encounter (statuses as of 07/05/2022) Immunizations Name Administration Dates Next Due COVID-19 mRNA, LNP-s, No Pre serve, 2-Dose Series (Intela) 03/29/2020,03/05/2020 Seasonal Influenza, Quadriva lent, No Preserve, [...] encounter Miscellaneous Notes * Telephone Encounter - SHRUTHI Couch - 07/05/2022 10:43 AM EDT Summer calling from [facility] asking if pt had a hospital follow up appointment. Pt was discharged from [facility] on 07/02. Confirmed with Summer that pt did not have a hospital follow up appointment. documented in this encounter Plan of Treatment Upcoming Encounters Date Type Specialty Care Team Description 07/24/2022 Imaging Radiology 07/24/2022 Imaging Radiology 07/28/2022 Office Visit Cardiology Olivia Dempsey PA-C [address] [place] [address] 08/11/2022 Office Visit Sleep Disorders Karen Wilcox DO [address] [place] [address] 09/04/2022 Telemedicine Gastroenterology Roma Galvez CRNP [address] [place] [address] Scheduled Procedures Name Priority Associated Diagnoses Date/Ti [...] filedocumented as of this encounter Care Teams Properties Supervisor Relationship Specialty Start Date End Date Candice Rasmussen DO [address] [place] [address] PCP - General Family Medicine 05/20/12 documented as of this encounter
--- OUTSIDE RECORDS SUMMARY | 2022-12-24 17:25 | External Medical Summary ---
Author Name Unknown Address Unknown Organization K09:[facility] [address] [address] Laboratory Report Ordering Provider Test Date Status JESUS WEAVER 09/11/2022 11:43:56 Final Observation Date Value Abnormality Reference (Units ) Status Color of Urine by Auto 09/11/2022 11:43:56 Yellow Light Yellow, Yellow, Dark Yellow Final Clarity, Urine 09/11/2022 11:43:56 Clear Clear Final Glucose [Mass/volume] in Urine by Automated test strip 09/11/2022 11:43:56 Negative Negative (mg/dL) Final Bilirubin.total [Presence] in Urine by Automated test strip 09/11/2022 11:43:56 Negative Negative Final Ketones [Mass/volume] in Urine by Automated test strip 09/11/2022 11:43:56 Negative Negative (mg/dL) Final Specific gravity, Urine 09/11/2022 11:43:56 1.010 1.003-1.030 Final Hemoglobin [Presence] in Urine by Automated test strip 09/11/2022 11:43:56 Negative Negative Final pH, Urine 09/11/2022 11:43:56 7.0 5.0-7.5 (Units) Final Protein [Mass/volume] in Urine by Automated test strip 09/11/2022 11:43:56 Negative Negative (mg/dL) Final Urobilinogen [Mass/volume] in Urine by Automated test strip 09/11/2022 11:43:56 0.2 0.2, 1.0 (mg/dL) Final Nitrite [Presence] in Urine by Automated test strip 09/11/2022 11:43:56 Negative Negative Final Leukocyte esterase [Presence] in Urine by Automated test strip 09/11/2022 11:43:56 Negative Negative Final Annotation Comment 09/11/2022 11:43:56 Final Screen negative - Microscopi c not performed. Performing Location [facility] [place] [address]
--- OUTSIDE RECORDS SUMMARY | 2022-12-24 17:25 | External Medical Summary | Summary of Care ---
Author Name Unknown Organization [facility] Address [address] [place] [address] Phone [phone] Care Team Providers Care Loading Checker Name Role Phone Candice Rasmussen DO Primary Care Provider Reason for Referral * (Within 10 days (routine)) - Pending Review Specialty Diagnoses / Procedures Referred By Dalton pineda Referred To Contact Radiology Diagnoses Breast pain, left Procedures US BREAST LIMITED LEFT Nellie Villegas MD [address] [facility] [address] Referral ID Status Reason Start Date Expiration Date V isits Requested Visits Authorized [id number] Pending Review 06/26/2022 999 999 Reason for Visit * Reason Comments Acute The pt stated she almaraz s been having pain in her L breast. Encounter Details Date Type Department Care Team Description 06/26/2022 Office Visit General Internal Medicine [address] Rolon Mcintosh [address] [place] [id number] Nellie Villegas MD [address] [place] [id number] Breast pain, left*; Other cerebral palsy (HCC); Mood disorder (HCC) Allergies Active Allergy Reactions Severity Noted Date Comments Ketoconazole Rash Medium 07/17/2018 documented as of this encounter (statuses as of 06/26/2022) Medications Medication Sig Dispensed Refills Start Date End Date Status ZONISAMIDE 100 MG PO CAPS 1 capsule twice a day 0 Active nystatin 495427 UNIT/GM cream Apply topically to affected area [...] as of this encounter (statuses as of 06/26/2022) Active Problems Problem Noted Date History of [...] as of this encounter (statuses as of 06/26/2022) Resolved Problems Problem Noted Date Resolved Date Prolonged Q-T interval on ECG 03/30/2020 Epilepsy 01/08/2017 11/08/2017 documented as of this encounter (statuses as of 06/26/2022) Immunizations Name Administration Dates Next Due COVID-19 [...] Sign Reading Time Taken Comments Blood Pressure 118/82 06/26/2022 11:19 AM EDT Pulse 69 06/26/2022 11:19 AM EDT Temperature 36.6 C (97.8 F) 06/26/2022 11:19 AM E DT Respiratory Rate - - Oxygen Saturation 100% 06/26/2022 11:19 AM EDT Inhaled Oxygen Concentration - - Weight 80.8 kg (178 lb 1.6 oz) 06/26/2022 11:19 AM EDT Height - - Body Mass Index 34.78 05/09/2022 2:05 PM EDT documented in this encounter Progress Notes * Nellie Villegas MD - 06/26/2022 11:39 AM EDT SUBJECTIVE: Olivia Lawrence is a 36 year old female. Chief Complaint Patient presents with Acute The pt stated she has been having pain in her L breast. HPI: Patient presents today accompanied by her mother with symptoms of pain around her left breast.History of hemiplegiccerebral palsy, partial idiopathic epilepsy, chronic anxiety / depression/ mood disorder followed by psychiatrist Dr. Hendrickson, has appointment tomorrow at [facility] to be admitted for video EEG to determine the nature of her seizure disorder. Mother states she gets anxious around those appointments and had been doing a lot more cleaning over the weekend, Sunday she had been cleaning the bathroom. Denies any injuries or falls. Had complained of pain on the left breast on the top radiating on the side and down the breast on the outer aspect. No lump noted. No discharge from the nipple. No family history of breast cancer. She wears a thin bra. Gained weight as below. Pain increased with bending forward or wearing her bra, had been sleeping towards her left and did not have any pain at night and 1 waking up she had pain. No pain radiating to the neck or shoulder or to the back. No shortness of breath dizziness or diaphoresis is on continuous OCP does not get. . No recent prolonged travel or immobilization. No edema of the leg or calf pain. Wt Readings from Last 6 Encounters: 06/26/22 80.8 kg (178 lb 1.6 oz) 05/16/22 79.7 kg (175 lb 12.8 oz) 05/09/22 78.9 kg (174 lb) 05/05/22 79.4 kg (175 lb) 04/25/22 79.7 kg (175 lb 12.8 oz) 12/27/21 76.4 kg (168 lb 6.4 oz) Patient Active Problem List Diagnosis Code Epilepsy ([facility]) G40.909 Depression F32.A Mood disorder ([facility]) F39 OCD (obsessive compulsive disorder) F42.9 Hydrocephalus ([facility]) G91.9 CP (cerebral palsy) ([facility]) G80.9 Sprain of left wrist S63.502A Cutaneous candidiasis B37.2 Hyperprolactinemia ([facility]) E22.1 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 To affacted area for two weeks. 15 g 2 nystatin (NYSTOP) powder Apply topically to affected area 3 times a day. Sprinkle over affectedarea. 1 Bottle 0 Pyridoxine HCl 100 MG [...] the morning and 1 Tablet before bedtime. 03/03 1-20 MG-MCG Oral Tablet (Norethindrone Acet-Ethinyl Est) TAKE 1 TABLET BY MOUTH DAILY FOR 3 WEEKS THEN START NEXT PACK, CONTINUOUS USE 84 Tablet 2 cloBAZam 10 MG Oral Tablet (Onfi) Take 0.5 Tablets by mouth in the morning. Divalproex Sodium 250 MG Oral Tablet Delayed Release (Depakote DR) Take 3 tablets by mouth in the morning and 1 tablet by mouth at night risperiDONE 0.5 MG Oral Tablet (RisperDAL) TAKE 1 TABLET BY MOUTH DAILY WITH 1 MG IN THE MORNING TO EQUAL 1.5MG Lacosamide 200 MG Oral Tablet (Vimpat) Take 1 tablet (200 mg total) by mouth 3 (three) times daily. Omeprazole 40 MG Oral Capsule Delayed Release (PriLOSEC) Take 1 Capsule by mouth in the morning. 90 Capsule 3 No current facility-administered medications for this visit. Review of patient's allergies indicates: Allergen Reactions Ketoconazole Rash OBJECTIVE: BP 118/82 | Pulse 69 | Temp 36.6 C (97.8 F) | Wt 80.8 kg (178 lb 1.6 oz) | SpO2 100% | BMI 34.78 kg/m | BSA 1.85 m PHYSICAL EXAM: General: alert, healthy, no distress, well developed Heart: regular rhythm and rate,No murmurs. Lungs: lungs clear to auscultation Extremities: no edema Breasts: skin normal, no nipple retraction or dimpling, no nipple discharge or bleeding, normal to palpation without dominant masses, no axillary adenopathy, c/o pain left UIQ breast Chest wall--no IC tenderness. Shoulders--FROM left ASSESSMENT/PLAN: Breast pain, left (Primary) - MAMMOGRAM DIAGNOSTIC CYDNEY BILATERAL; Future; Expected date: 06/26/2022 - US BREAST LIMITED LEFT; Future; Expected date: 06/26/2022 DD -MSK pain from cleaning vs anxiety of video EEG monitoring Tylenol 500 mg 2 tab q8 hrs prn For pain. Advised to apply warm moist compress to the affected areas for 5 minutes 3-4 times daily. Recommend to do deep breathing exercises 2-3 times a day x 1-2 weeks. Wear good supportive bra Other cerebral palsy (HCC) Mood disorder (HCC) Follow Up: Return if symptoms worsen or fail to improve. (This note was completed using the dictation [...] with plan of care. Nellie Villegas MD 06/26/2022 documented in this encounter Nursing Notes * Cal Kulkarni LPN - 06/26/2022 11:19 AM EDT Chief Complaint Patient presents with Acute The pt stated she has been having pain in her L breast. documented in this encounter Plan of Treatment Upcoming Encounters Date Type Specialty Care Team Description 07/12/2022 Imaging Radiology 07/12/2022 Imaging Radiology 07/28/2022 Office Visit Cardiology Olivia Dempsey PA-C [address] [place] [id number] 08/11/2022 Office Visit Sleep Disorders Karen Wilcox DO [address] [place] [id number] 09/04/2022 Telemedicine Gastroenterology Roma Galvez CRNP [address] [place] [address] Scheduled Orders Name Type Priority Associated Diagnoses Orde r Schedule MAMMOGRAM DIAGNOSTIC CYDNEY BILATERAL Medical Imaging Routine Breast pain, left Expected: 06/26/2022, Expires: 07/28/2023 US BREAST LIMITED LEFT Medical Imaging Routine Breast pain, left Expected: 06/26/2022, Expires: 07/28/2023 Scheduled Procedures Name Priority Associated Diagnoses Date/Ti [...] as of this encounter Visit Diagnoses Diagnosis Breast pain, left- Primary Mastodynia Other cerebral palsy (HCC) Mood disorder (HCC) Unspecified episodic mood disorder documented in this encounter Care Teams Loading Checker Relationship Specialty Start Date End Date Candice Rasmussen DO [address] [place] [address] PCP - General Family Medicine 05/20/12 documented as of this encounter"
[2022-12-24] MEDS: PANTOprazole 40 MG TAB PO SCH (20:42)
[2022-12-24] MEDS: FLUTICASONE PROPIONATE NA SPR 16 GM BTL SCH (20:42)
[2022-12-25] MEDS: LACOSAMIDE 50 MG TABLET PO SCH ×2 (08:52→20:45)
[2022-12-25] MEDS: AMOXICILLIN 875 MG TAB PO SCH ×2 (08:53→20:44)
[2022-12-25] MEDS: clonazePAM 0.25 MG TAB PO SCH ×2 (08:53→20:44)
[2022-12-25] MEDS: PYRIDOXINE HCL 50 MG TAB PO SCH (08:53)
[2022-12-25] MEDS: risperiDONE 1 MG TABLET PO SCH ×3 (08:54→20:45)
[2022-12-25] MEDS: amLODIPine BESYLATE 5 MG TAB PO SCH (08:54)
[2022-12-25] MEDS: DIVALPROEX DELAY RELEASE 250 MG TABEC PO SCH ×3 (08:54→20:45)
[2022-12-25] MEDS: ZONISAMIDE 100 MG CAPSULE PO SCH ×2 (08:54→20:46)
[2022-12-25] MEDS: CETIRIZINE HCL 10 MG TABLET PO SCH (08:54)
[2022-12-25] MEDS: PSYLLIUM or GUAR GUM FIBER POWDER PACKET PO SCH (08:55)
[2022-12-25] MEDS: PATIENT'S OWN ORAL CONTRACEPTIVE PO SCH (08:55)
[2022-12-25] MEDS ORDERED: SODIUM CHLORIDE 0.65% NA SOLN 45 ML (OCEAN) PRN (08:58)
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
--- NOTE | 2022-12-25 11:58 | Psychiatric Progress Note ---
Date of Service December 25, 2022 Impression / Recommendations Impression Agree with assessment per Dr. Luna: 37 yo woman with complex medical conditions, hx of autism, OCD with mood lability classified as bipolar by outpatient psychiatrist, recent increase in behaviors given delay in plan to transition to more independent living setting. Discussed recent OM and that Mycoplasma can contribute to PANS in exacerbating psychosis and mood conditions in autism. 12/25/22: Increased anger and vocalized yelling today in context of discussing her parents concerns about having her return home and plan to look into other potential options. She expressed some hyperreligious delusions in this context as well as rigidity in terms of frustration of not being able to making her own decisions. Biggest challenge remains her selective aggression/irritability toward her parents in the home environment and high caregiving needs which is becoming increasingly unsustainable for them. Her parents feel unsafe taking her home/unable to continue to provide the level of care that she needs. They have requested possible other placement options, will are working to schedule an interdisciplinary meeting with , outpatient [facility], Randi's parents to examine any possible options. Overall, I spent a total of 50 minutes with this case, including review of chart, direct evaluation of the patient, coordination with nursing, and documentation. 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 Parents are guardians. Patient has a history of hospitalization in September 2022. Her refractory seizure do, spastic quadriplegic cerebral palsy, hydrocephalus with DIRECTOR OF SLOT OPERATIONS shunt presents, and need for CPAP are bar riers to placement on an inpatient psychiatry unit so it is medically necessary she be housed on the medical floor for psychiatric assessment and intervention. Chief Complaint "Randi always gets her way". Subjective Subjective Patient was seen & assessed and interval progress reviewed. Behaviorally appropriate yesterday evening and overnight, worked on a variety of craft projects. Reports some shortness of breath today which she wonders if it could be related to recent upper sinus infection. When we discuss ongoing question of where she may go after the hospital she becomes very angry, yells loudly at me, tells me "you aren't in charge, I'm in charge" and hits her chest multiple times emphasizing her distress stating "aRndi always gets her way", "I am God", "I make the decisions". States her desire to not go anywhere except to her home. Feels she can control her angry at home and not be aggressive to her parents because "I will try harder" but also states her belief that she shouldn't have any consequences. Physical Exam Psychiatric Orientation: alert Apperance: appropriately dressed and appropriately groomed Eye Contact: good eye contact Motor Behavior: + tremor (chin, they have discussed with neuro and psychiatrist (neither feel TD)) Speech: normal rate/rhythm/volume of speech Affect: + anxious affect, + labile affect, + angry affect and + constricted affect Mood: + anxious mood and + angry mood Thought Process: + concrete thought process Thought Content: + delusions (zoroastrianism references today) Suicidal Thoughts: denies suicidal thoughts Homicidal Thoughts: denies homicidal thoughts Hallucinations: no auditory hallucinations and no visual hallucinations Cognition: attention grossly intact and language grossly intact Estimated Intelligence: consistent with education level Insight: + limited insight Judgment: + limited judgement Vital Signs (Past 24 Hours) Last Vital Signs Temp 36.5 C 12/25/22 08:01 Pulse 91 H 12/25/22 08:01 Resp 16 12/25/22 08:01 BP 136/88 12/25/22 08:01 Pulse Ox 99 12/25/22 08:01 O2 Del Method Room Air 12/25/22 08:01 Results & Data ([facility]) Current Inpatient Medications Current Inpatient Medications: Current Inpatient Medications Acetaminophen (Acetaminophen 325 Mg Tab) 650 mg PO Q4H PRN PRN Reason: pain/fever Stop: 01/19/23 14:43 Last Admin: 12/24/22 20:41 Dose: 650 mg Al Hydrox/Mg Hydrox/Simethicone (Aluminum/Magnesium Susp 30 Ml Udc) 30 ml PO Q6H PRN PRN Reason: Dyspepsia Stop: 01/19/23 14:43 Amlodipine Besylate (Amlodipine Besylate 5 Mg Tab) 5 mg PO QAM [facility] Stop: 01/23/23 08:59 Last Admin: 12/25/22 08:54 Dose: 5 mg Amoxicillin (Amoxicillin 875 Mg Tab) 875 mg PO BID [facility]; Protocol Stop: 12/26/22 08:00 Last Admin: 12/25/22 08:53 Dose: 875 mg Benzonatate (Benzonatate 100 Mg Capsule) 100 mg PO TID PRN PRN Reason: Cough Stop: 01/21/23 20:59 Last Admin: 12/24/22 20:52 Dose: 100 mg Cetirizine HCl (Cetirizine Hcl 10 Mg Tablet) 10 mg PO DAILY [facility] Stop: 01/24/23 08:59 Last Admin: 12/25/22 08:54 Dose: 10 mg Clobazam (Clobazam) 1 each PO BID@1200,2100 [facility] Stop: 01/20/23 20:59 Last Admin: 12/25/22 11:34 Dose: 1 each Clonazepam (Clonazepam 0.25 Mg Tab) 0.25 mg PO AMHS [facility] Stop: 01/19/23 20:59 Last Admin: 12/25/22 08:53 Dose: 0.25 mg Divalproex Sodium (Divalproex Delay Release 250 Mg Tabec) 250 mg PO DAILY@1200 [facility] Stop: 01/20/23 11:59 Last Admin: 12/25/22 11:35 Dose: 250 mg Divalproex Sodium (Divalproex Delay Release 250 Mg Tabec) 500 mg PO BID [facility] Stop: 01/19/23 20:59 Last Admin: 12/25/22 08:54 Dose: 500 mg Famotidine (Famotidine 20 Mg Tab) 20 mg PO BID PRN PRN Reason: HEARTBURN/INDIGESTION Stop: 01/19/23 16:07 Fluticasone Propionate (Fluticasone Propionate Na Spr 16 Gm Btl) 1 sprays NA HS [facility] Stop: 01/19/23 20:59 Last Admin: 12/24/22 20:42 Dose: 1 sprays Lacosamide (Lacosamide 50 Mg Tablet) 200 mg PO BID [facility] Stop: 01/19/23 20:59 Last Admin: 12/25/22 08:52 Dose: 200 mg Lorazepam (Lorazepam 0.5 Mg Tab) 0.5 mg PO DAILY PRN PRN Reason: Anxiety Stop: 01/19/23 16:07 Last Admin: 12/22/22 23:13 Dose: 0.5 mg Magnesium Hydroxide (Magnesium Hydroxide Susp 30 Ml Udc) 30 ml PO Q6H PRN PRN Reason: Constipation Stop: 01/19/23 14:43 Miscellaneous (Patient's Own Oral Contraceptive) 1 each PO DAILY [facility]; Protocol Stop: 01/20/23 12:59 Last Admin: 12/25/22 08:55 Dose: 1 each Ondansetron HCl (Ondansetron Inj 2 Mg/Ml 2 Ml Vial) 4 mg IV Q6H PRN PRN Reason: Nausea Stop: 01/19/23 14:43 Pantoprazole Sodium (Pantoprazole 40 Mg Tab) 40 mg PO HS [facility] Stop: 01/19/23 20:59 Last Admin: 12/24/22 20:42 Dose: 40 mg Polyethylene Glycol (Polyethylene (Miralax) 17 Gm Pack) 17 gm PO DAILY PRN PRN Reason: Constipation Stop: 01/19/23 14:43 Psyllium Hydrophilic Mucilloid (Psyllium Or Guar Gum Fiber Powder Packet) 1 pkt PO QAM [facility] Stop: 01/20/23 08:59 Last Admin: 12/25/22 08:55 Dose: 1 pkt Pyridoxine HCl (Pyridoxine Hcl 50 Mg Tab) 100 mg PO QAM [facility] Stop: 01/20/23 08:59 Last Admin: 12/25/22 08:53 Dose: 100 mg Risperidone (Risperidone 1 Mg Tablet) 1 mg PO TID [facility] Stop: 01/20/23 20:59 Last Admin: 12/25/22 08:54 Dose: 1 mg Sodium Chloride (Sodium Chloride 0.65% Na Soln 45 Ml (Starke)) 2 sprays NA BID PRN PRN Reason: Congestion Stop: 01/24/23 08:57 Last Admin: 12/25/22 09:01 Dose: 2 sprays Zonisamide (Zonisamide 100 Mg Capsule) 100 mg PO AMHS [facility] Stop: 01/19/23 20:59 Last Admin: 12/25/22 08:54 Dose: 100 mg Post Discharge Appointments Primary Care Physician Name Of Family Doctor/PCP: Dr. Candice Rasmussen @[facility]
[2022-12-25 12:15] LABS: Basophils # (auto) 0.03 K/uL (0.00-0.20); Basophils % (auto) 0.5 %; Eosinophils # (auto) 0.02 K/uL (0.00-0.50); Eosinophils % (auto) 0.3 %; Hemoglobin 13.7 g/dl (12.0-16.0); Immature Granulocytes # (auto) 0.03 K/uL (0.01-0.20); Immature Granulocytes % (auto) 0.5 %; Lymphocytes # (auto) 2.78 K/uL (1.20-3.40); Lymphocytes % (auto) 42.8 %; Mean Corpuscular Hemoglobin 33.3 pg (25.0-34.0); Mean Corpuscular Hgb Conc 33.4 g/dL (32.0-36.0); Mean Corpuscular Volume 99.8 fL (80.0-100.0); Mean Platelet Volume 11.5 fL (9.4-12.4); Monocytes # (auto) 1.02 K/uL (0.11-0.59); Monocytes % (auto) 15.7 %; Neutrophils # (auto) 2.62 K/uL (1.40-6.50); Neutrophils % (auto) 40.2 %; Platelet Count 209 K/uL (130-400); RDW Coefficient of Variation 12.9 % (11.5-14.5); RDW Standard Deviation 47.4 fL (36.4-46.3); Red Blood Count 4.11 M/uL (4.20-5.40)
[2022-12-25 12:47] LABS: Anion Gap 6 (3-11); BUN Creatinine Ratio 17.4 (10-20); Blood Urea Nitrogen 15 mg/dl (6-23); Calcium 9.5 mg/dl (8.6-10.3); Carbon Dioxide 24 mmol/L (21-32); Chloride 109 mmol/L (98-107); Creatinine Clr Calc Pharmacy 82.4 ml/min; Est GFR (African American) 98.6 ml/min; Est GFR (Non-African American) 85.1 ml/min; Glucose 70 mg/dl (70-99(Fasting)); Sodium 139 mmol/L (136-145)
[2022-12-25] MEDS: FLUTICASONE PROPIONATE NA SPR 16 GM BTL SCH (20:45)
[2022-12-25] MEDS: PANTOprazole 40 MG TAB PO SCH (20:45)
[2022-12-25] MEDS: ACETAMINOPHEN 325 MG TAB PO PRN (20:48)
[2022-12-26] MEDS: ACETAMINOPHEN 325 MG TAB PO PRN (05:08)
[2022-12-26] MEDS: risperiDONE 1 MG TABLET PO SCH ×3 (07:31→20:39)
[2022-12-26] MEDS: ZONISAMIDE 100 MG CAPSULE PO SCH ×2 (07:32→20:38)
[2022-12-26] MEDS: PYRIDOXINE HCL 50 MG TAB PO SCH (07:32)
[2022-12-26] MEDS: amLODIPine BESYLATE 5 MG TAB PO SCH (07:32)
[2022-12-26] MEDS: CETIRIZINE HCL 10 MG TABLET PO SCH (07:33)
[2022-12-26] MEDS: PATIENT'S OWN ORAL CONTRACEPTIVE PO SCH (07:34)
[2022-12-26] MEDS: PSYLLIUM or GUAR GUM FIBER POWDER PACKET PO SCH (07:35)
[2022-12-26] MEDS: DIVALPROEX DELAY RELEASE 250 MG TABEC PO SCH ×3 (07:35→20:38)
[2022-12-26] MEDS: clonazePAM 0.25 MG TAB PO SCH ×2 (07:41→20:35)
[2022-12-26] MEDS: LACOSAMIDE 50 MG TABLET PO SCH ×2 (08:05→20:36)
[2022-12-26] MEDS: POLYETHYLENE (MIRALAX) 17 GM PACK PO SCH (08:54)
--- NOTE | 2022-12-26 12:23 | Psychiatric Progress Note ---
Date of Service December 26, 2022 Impression / Recommendations Impression Agree with assessment per Dr. Luna: 37 yo woman with complex medical conditions, hx of autism, OCD with mood lability classified as bipolar by outpatient psychiatrist, recent increase in behaviors given delay in plan to transition to more independent living setting. Discussed recent OM and that Mycoplasma can contribute to PANS in exacerbating psychosis and mood conditions in autism. 12/26/22: Ongoing disposition planning via interdisciplinary meeting. Biggest challenge remains her selective aggression/irritability toward her parents in the home environment and high caregiving needs which is becoming increasingly unsustainable for them. Her parents feel unsafe taking her home/unable to continue to provide the level of care that she needs. Overall, I spent a total of 60 minutes with this case, including review of chart, coordination with nursing and hospitalist, participation in 45 minute interdisciplinary meeting and documentation. 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 Parents are guardians. Patient has a history of hospitalization in September 2022. Her refractory seizure do, spastic quadriplegic cerebral palsy, hydrocephalus with MANAGER [employer]ING shunt presents, and need for CPAP are barriers to placement on an inpatient psychiatry unit so it is medically necessary she be housed on the medical floor for psychiatric assessment and intervention. Subjective Subjective Chart reviewed, behaviorally appropriate overnight. Participated in interdisciplinary meeting with Randi's parents/legal guardians Libby Mckeon from the [facility], Randi'venkat outpt CM from [facility], psych SW, psych liason RN, acute care CM and myself to discuss Michaelle and Denny's concerns about being able to care for Randi at home. Currently they feel unable to do so without additional services. Meeting will be held on Sunday with [facility] to determine if in home services are available and when these could start. Discussed PT/OT evaluation to better determine her needs for self-care/ADLs. Physical Exam Vital Signs (Past 24 Hours) Last Vital Signs Temp 36.5 C 12/26/22 07:23 Pulse 85 12/26/22 07:23 Resp 18 12/26/22 07:23 BP 142/91 H 12/26/22 07:23 Pulse Ox 95 12/26/22 07:23 O2 Del Method Room Air 12/26/22 08:00 Results & Data ([facility]) Laboratory Results Laboratory Results - last 24 hr 12/25/22 12/25/22 12/25/22 11:46 12:57 14:39 Sodium 139 Potassium TNP TNP 3.7 Chloride 109 H Carbon Dioxide 24 Anion Gap 6 BUN 15 Creatinine 0.86 Est Cr Clr Drug Dosing 82.4 Est GFR ( Amer) 98.6 Est GFR (Non-Af Amer) 85.1 BUN/Creatinine Ratio 17.4 Glucose 70 Calcium 9.5 Current Inpatient Medications Current Inpatient Medications: Current Inpatient Medications Acetaminophen (Acetaminophen 325 Mg Tab) 650 mg PO Q4H PRN PRN Reason: pain/fever Stop: 01/19/23 14:43 Last Admin: 12/26/22 05:08 Dose: 650 mg Al Hydrox/Mg Hydrox/Simethicone (Aluminum/Magnesium Susp 30 Ml Udc) 30 ml PO Q6H PRN PRN Reason: Dyspepsia Stop: 01/19/23 14:43 Amlodipine Besylate (Amlodipine Besylate 5 Mg Tab) 5 mg PO QAM [facility] Stop: 01/23/23 08:59 Last Admin: 12/26/22 07:32 Dose: 5 mg Benzonatate (Benzonatate 100 Mg Capsule) 100 mg PO TID PRN PRN Reason: Cough Stop: 01/21/23 20:59 Last Admin: 12/24/22 20:52 Dose: 100 mg Cetirizine HCl (Cetirizine Hcl 10 Mg Tablet) 10 mg PO DAILY [facility] Stop: 01/24/23 08:59 Last Admin: 12/26/22 07:33 Dose: 10 mg Clobazam (Clobazam) 1 each PO BID@1200,2100 [facility] Stop: 01/20/23 20:59 Last Admin: 12/26/22 11:43 Dose: 1 each Clonazepam (Clonazepam 0.25 Mg Tab) 0.25 mg PO AMHS [facility] Stop: 01/19/23 20:59 Last Admin: 12/26/22 07:41 Dose: 0.25 mg Divalproex Sodium (Divalproex Delay Release 250 Mg Tabec) 250 mg PO DAILY@1200 [facility] Stop: 01/20/23 11:59 Last Admin: 12/26/22 11:43 Dose: 250 mg Divalproex Sodium (Divalproex Delay Release 250 Mg Tabec) 500 mg PO BID [facility] Stop: 01/19/23 20:59 Last Admin: 12/26/22 07:35 Dose: 500 mg Famotidine (Famotidine 20 Mg Tab) 20 mg PO BID PRN PRN Reason: HEARTBURN/INDIGESTION Stop: 01/19/23 16:07 Fluticasone Propionate (Fluticasone Propionate Na Spr 16 Gm Btl) 1 sprays NA HS [facility] Stop: 01/19/23 20:59 Last Admin: 12/25/22 20:45 Dose: 1 sprays Lacosamide (Lacosamide 50 Mg Tablet) 200 mg PO BID [facility] Stop: 01/19/23 20:59 Last Admin: 12/26/22 08:05 Dose: 200 mg Lorazepam (Lorazepam 0.5 Mg Tab) 0.5 mg PO DAILY PRN PRN Reason: Anxiety Stop: 01/19/23 16:07 Last Admin: 12/22/22 23:13 Dose: 0.5 mg Magnesium Hydroxide (Magnesium Hydroxide Susp 30 Ml Udc) 30 ml PO Q6H PRN PRN Reason: Constipation Stop: 01/19/23 14:43 Miscellaneous (Patient's Own Oral Contraceptive) 1 each PO DAILY [facility]; Protocol Stop: 01/20/23 12:59 Last Admin: 12/26/22 07:34 Dose: 1 each Ondansetron HCl (Ondansetron Inj 2 Mg/Ml 2 Ml Vial) 4 mg IV Q6H PRN PRN Reason: Nausea Stop: 01/19/23 14:43 Pantoprazole Sodium (Pantoprazole 40 Mg Tab) 40 mg PO HS [facility] Stop: 01/19/23 20:59 Last Admin: 12/25/22 20:45 Dose: 40 mg Polyethylene Glycol (Polyethylene (Miralax) 17 Gm Pack) 17 gm PO DAILY [facility] Stop: 01/25/23 08:59 Last Admin: 12/26/22 08:54 Dose: 17 gm Psyllium Hydrophilic Mucilloid (Psyllium Or Guar Gum Fiber Powder Packet) 1 pkt PO QAM [facility] Stop: 01/20/23 08:59 Last Admin: 12/26/22 07:35 Dose: 1 pkt Pyridoxine HCl (Pyridoxine Hcl 50 Mg Tab) 100 mg PO QAM [facility] Stop: 01/20/23 08:59 Last Admin: 12/26/22 07:32 Dose: 100 mg Risperidone (Risperidone 1 Mg Tablet) 1 mg PO TID [facility] Stop: 01/20/23 20:59 Last Admin: 12/26/22 07:31 Dose: 1 mg Sodium Chloride (Sodium Chloride 0.65% Na Soln 45 Ml ([place])) 2 sprays NA BID PRN PRN Reason: Congestion Stop: 01/24/23 08:57 Last Admin: 12/25/22 09:01 Dose: 2 sprays Zonisamide (Zonisamide 100 Mg Capsule) 100 mg PO AMHS [facility] Stop: 01/19/23 20:59 Last Admin: 12/26/22 07:32 Dose: 100 mg Post Discharge Appointments Primary Care Physician Name Of Family Doctor/PCP: Dr. Candice Rasmussen @[facility]
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
[2022-12-26] MEDS: BENZONATATE 100 MG CAPSULE PO PRN (19:29)
[2022-12-26] MEDS: FLUTICASONE PROPIONATE NA SPR 16 GM BTL SCH (20:36)
[2022-12-26] MEDS: PANTOprazole 40 MG TAB PO SCH (20:39)
[2022-12-27] MEDS: ACETAMINOPHEN 325 MG TAB PO PRN ×2 (04:29→20:15)
[2022-12-27] MEDS: BENZONATATE 100 MG CAPSULE PO PRN ×2 (04:49→20:15)
[2022-12-27] MEDS: POLYETHYLENE (MIRALAX) 17 GM PACK PO SCH (08:31)
[2022-12-27] MEDS: risperiDONE 1 MG TABLET PO SCH ×3 (08:33→20:17)
[2022-12-27] MEDS: LACOSAMIDE 50 MG TABLET PO SCH ×2 (08:33→20:16)
[2022-12-27] MEDS: DIVALPROEX DELAY RELEASE 250 MG TABEC PO SCH ×3 (08:33→20:17)
[2022-12-27] MEDS: PSYLLIUM or GUAR GUM FIBER POWDER PACKET PO SCH ×2 (08:34→08:37)
[2022-12-27] MEDS: ZONISAMIDE 100 MG CAPSULE PO SCH ×2 (08:34→20:17)
[2022-12-27] MEDS: amLODIPine BESYLATE 5 MG TAB PO SCH (08:34)
[2022-12-27] MEDS: PATIENT'S OWN ORAL CONTRACEPTIVE PO SCH (08:34)
[2022-12-27] MEDS: PYRIDOXINE HCL 50 MG TAB PO SCH (08:34)
[2022-12-27] MEDS: CETIRIZINE HCL 10 MG TABLET PO SCH (08:34)
[2022-12-27] MEDS: clonazePAM 0.25 MG TAB PO SCH ×2 (08:39→20:15)
--- NOTE | 2022-12-27 09:45 | Psychiatric Progress Note ---
Date of Service December 27, 2022 Impression / Recommendations Impression Agree with assessment per Dr. Luna: 37 yo woman with complex medical conditions, hx of autism, OCD with mood lability classified as bipolar by outpatient psychiatrist, recent increase in behaviors given delay in plan to transition to more independent living setting. Discussed recent OM and that Mycoplasma can contribute to PANS in exacerbating psychosis and mood conditions in autism. 12/27/22: Her mood is stable, she continues to tolerate her medications. She is showing more insight and desire to work on some of her behaviors which I suspect is due to potential discussions about not returning home which she wants to avoid. What remains unclear is if her desire to implement behavioral changes will be enough to override her impulsivity, rigidity and outbursts when acutely dysregulated at home as traditionally she has struggled significantly with this. Unfortunately there are also few good options for respite care/therapeutic placements to work on these more chronic behavioral issues. Biggest challenge remains her selective aggression/irritability toward her parents in the home environment and high caregiving needs which is becoming increasingly unsustainable for them, PT/OT evaluations note she would not meet criteria for higher level of care for her physical needs and in fact found that she seems to be more independent with toileting in the hospital setting compared to when at home. Her parents feel unsafe taking her home/unable to continue to provide the level of care that she needs without additional services, meeting on Sunday with the [facility] to determine if additional in-home services can be established. Overall, I spent a total of 40 minutes with this case, including review of chart, meeting with patient, discussion with psychiatric liason, and documentation. 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: Plan -Family feels unsafe bringing her home -Family and county to meet on Sunday and then update inpatient team regarding possibility for any additional outpatient services -Reviewed possible respite option, per psych liason discussion with Randi's parents they visited this facility and felt it would not be a good fit for her needs -Continue with current psychiatric medications Risk Factors Assessment Do You Have Access To A Gun?: No Protective Factors 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 Parents are guardians. Patient has a history of hospitalization in September 2022. Her refractory seizure do, spastic quadriplegic cerebral palsy, hydrocephalus with [employer] shunt presents, and need for CPAP are barriers to placement on an inpatient psychiatry unit so it is medically necessary she be housed on the medical floor for psychiatric assessment and intervention. Chief Complaint "Much better, I made a contract to go back home". Subjective Subjective Patient was seen & assessed and interval progress reviewed. Has been in good behavioral control. Reports her mood is better and reads off contract she wrote for herself including using a diary at home to process her thoughts, "being safe in the car", "no more hitting or throwing things or shouting out" and "I will try to respect that I'm not God, but may mumble that to myself when I'm upset". Remains focused on goal of returning home. Denies any medication side effects. Discussed that earliest discharge would be Sunday but that discharge timing is uncertain at this time which she accepts stating "I understand". Physical Exam Psychiatric Orientation: alert Apperance: appropriately dressed and appropriately groomed Eye Contact: good eye contact Motor Behavior: + tremor (chin, they have discussed with neuro and psychiatrist (neither feel TD)) Speech: normal rate/rhythm/volume of speech Affect: + constricted affect Mood: + anxious mood and + irritable mood Thought Process: + concrete thought process Thought Content: reality based without delusions Suicidal Thoughts: denies suicidal thoughts Homicidal Thoughts: denies homicidal thoughts Hallucinations: no auditory hallucinations and no visual hallucinations Cognition: attention grossly intact and language grossly intact Estimated Intelligence: consistent with education level Insight: + limited insight Judgment: + limited judgement Vital Signs (Past 24 Hours) Last Vital Signs Temp 36.3 C L 12/27/22 07:15 Pulse 88 12/27/22 07:15 Resp 18 12/27/22 07:15 BP 138/91 12/27/22 07:15 Pulse Ox 98 12/27/22 07:15 O2 Del Method Room Air 12/27/22 07:15 Results & Data (U) Current Inpatient Medications Current Inpatient Medications: Current Inpatient Medications Acetaminophen (Acetaminophen 325 Mg Tab) 650 mg PO Q4H PRN PRN Reason: pain/fever Stop: 01/19/23 14:43 Last Admin: 12/27/22 04:29 Dose: 650 mg Al Hydrox/Mg Hydrox/Simethicone (Aluminum/Magnesium Susp 30 Ml Udc) 30 ml PO Q 6H PRN PRN Reason: Dyspepsia Stop: 01/19/23 14:43 Amlodipine Besylate (Amlodipine Besylate 5 Mg Tab) 5 mg PO QAM [facility] Stop: 01/23/23 08:59 Last Admin: 12/27/22 08:34 Dose: 5 mg Benzonatate (Benzonatate 100 Mg Capsule) 100 mg PO TID PRN PRN Reason: Cough Stop: 01/21/23 20:59 Last Admin: 12/27/22 04:49 Dose: 100 mg Cetirizine HCl (Cetirizine Hcl 10 Mg Tablet) 10 mg PO DAILY [facility] Stop: 01/24/23 08:59 Last Admin: 12/27/22 08:34 Dose: 10 mg Clobazam (Clobazam) 1 each PO BID@1200,2100 [facility] Stop: 01/20/23 20:59 Last Admin: 12/26/22 20:36 Dose: 1 each Clonazepam (Clonazepam 0.25 Mg Tab) 0.25 mg PO AMHS [facility] Stop: 01/19/23 20:59 Last Admin: 12/27/22 08:39 Dose: 0.25 mg Divalproex Sodium (Divalproex Delay Release 250 Mg Tabec) 250 mg PO DAILY@1200 [facility] Stop: 01/20/23 11:59 Last Admin: 12/26/22 11:43 Dose: 250 mg Divalproex Sodium (Divalproex Delay Release 250 Mg Tabec) 500 mg PO BID [facility] Stop: 01/19/23 20:59 Last Admin: 12/27/22 08:33 Dose: 500 mg Famotidine (Famotidine 20 Mg Tab) 20 mg PO BID PRN PRN Reason: HEARTBURN/INDIGESTION Stop: 01/19/23 16:07 Fluticasone Propionate (Fluticasone Propionate Na Spr 16 Gm Btl) 1 sprays NA HS [facility] Stop: 01/19/23 20:59 Last Admin: 12/26/22 20:36 Dose: 1 sprays Lacosamide (Lacosamide 50 Mg Tablet) 200 mg PO BID [facility] Stop: 01/19/23 20:59 Last Admin: 12/27/22 08:33 Dose: 200 mg Lorazepam (Lorazepam 0.5 Mg Tab) 0.5 mg PO DAILY PRN PRN Reason: Anxiety Stop: 01/19/23 16:07 Last Admin: 12/22/22 23:13 Dose: 0.5 mg Magnesium Hydroxide (Magnesium Hydroxide Susp 30 Ml Udc) 30 ml PO Q6H PRN PRN Reason: Constipation Stop: 01/19/23 14:43 Miscellaneous (Patient's Own Oral Contraceptive) 1 each PO DAILY [facility]; Protocol Stop: 01/20/23 12:59 Last Admin: 12/27/22 08:34 Dose: 1 each Ondansetron HCl (Ondansetron Inj 2 Mg/Ml 2 Ml Vial) 4 mg IV Q6H PRN PRN Reason: Nausea Stop: 01/19/23 14:43 Pantoprazole Sodium (Pantoprazole 40 Mg Tab) 40 mg PO HS [facility] Stop: 01/19/23 20:59 Last Admin: 12/26/22 20:39 Dose: 40 mg Polyethylene Glycol (Polyethylene (Miralax) 17 Gm Pack) 17 gm PO DAILY [facility] Stop: 01/25/23 08:59 Last Admin: 12/27/22 08:31 Dose: 17 gm Psyllium Hydrophilic Mucilloid (Psyllium Or Guar Gum Fiber Powder Packet) 1 pkt PO QAM [facility] Stop: 01/20/23 08:59 Last Admin: 12/27/22 08:37 Dose: Not Given Pyridoxine HCl (Pyridoxine Hcl 50 Mg Tab) 100 mg PO QAM [facility] Stop: 01/20/23 08:59 Last Admin: 12/27/22 08:34 Dose: 100 mg Risperidone (Risperidone 1 Mg Tablet) 1 mg PO TID [facility] Stop: 01/20/23 20:59 Last Admin: 12/27/22 08:33 Dose: 1 mg Sodium Chloride (Sodium Chloride 0.65% Na Soln 45 Ml ([place])) 2 sprays NA BID PRN PRN Reason: Congestion Stop: 01/24/23 08:57 Last Admin: 12/25/22 09:01 Dose: 2 sprays Zonisamide (Zonisamide 100 Mg Capsule) 100 mg PO AMHS [facility] Stop: 01/19/23 20:59 Last Admin: 12/27/22 08:34 Dose: 100 mg Post Discharge Appointments Primary Care Physician Name Of Family Doctor/PCP: Dr. Candice Rasmussen @[facility]
[2022-12-27] MEDS ORDERED: FLUTICASONE PROPIONATE NA SPR 16 GM BTL SCH (18:18)
[2022-12-27] MEDS: PANTOprazole 40 MG TAB PO SCH (20:16)
[2022-12-28] MEDS: ZONISAMIDE 100 MG CAPSULE PO SCH ×2 (08:17→20:05)
[2022-12-28] MEDS: PSYLLIUM or GUAR GUM FIBER POWDER PACKET PO SCH ×2 (08:17→08:28)
[2022-12-28] MEDS: clonazePAM 0.25 MG TAB PO SCH ×2 (08:17→20:03)
[2022-12-28] MEDS: risperiDONE 1 MG TABLET PO SCH ×3 (08:18→20:04)
[2022-12-28] MEDS: DIVALPROEX DELAY RELEASE 250 MG TABEC PO SCH ×3 (08:18→20:04)
[2022-12-28] MEDS: amLODIPine BESYLATE 5 MG TAB PO SCH (08:19)
[2022-12-28] MEDS: CETIRIZINE HCL 10 MG TABLET PO SCH (08:19)
[2022-12-28] MEDS: PYRIDOXINE HCL 50 MG TAB PO SCH (08:19)
[2022-12-28] MEDS: LACOSAMIDE 50 MG TABLET PO SCH ×2 (08:19→20:03)
[2022-12-28] MEDS: PATIENT'S OWN ORAL CONTRACEPTIVE PO SCH (08:20)
[2022-12-28] MEDS: POLYETHYLENE (MIRALAX) 17 GM PACK PO SCH (08:25)
--- NOTE | 2022-12-28 10:43 | Psychiatric Progress Note ---
Date of Service December 28, 2022 Impression / Recommendations Impression Agree with assessment per Dr. Luna: 37 yo woman with complex medical conditions, hx of autism, OCD with mood lability classified as bipolar by outpatient psychiatrist, recent increase in behaviors given delay in plan to transition to more independent living setting. Discussed recent OM and that Mycoplasma can contribute to PANS in exacerbating psychosis and mood conditions in autism. 12/28/22: Her mood remains stable and she continues to tolerate her medications. Psych liason worked with Randi and her parents to consider additional coping skills she could try at home for behavioral/emotional dysregulation. Biggest challenge remains her selective aggression/irritability toward her parents in the home environment and high caregiving needs though notably she's been more independent with care needs in the hospital. Her parents feel unsafe taking her home/unable to continue to provide the level of care that she needs without additional services, meeting on Sunday with the county to determine if additional in-home services can be established. Overall, I spent a total of 35 minutes with this case, including review of chart, meeting with patient, discussion with psychiatric liason, and documenta tion. 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: Plan -Family feels unsafe bringing her home -Family and county to meet on Sunday and then update inpatient team regarding possibility for any additional outpatient services -Reviewed possible respite option, per psych liason discussion with Randi's parents they visited this facility and felt it would not be a good fit for her needs -Continue with current psychiatric medications Risk Factors Assessment Do You Have Access To A Gun?: No Protective Factors Assessment 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 Parents are guardians. Patient has a history of hospitalization in September 2022. Her refractory seizure do, spastic quadriplegic cerebral palsy, hydrocephalus with PROFESSOR OF GEOGRAPHY shunt presents, and need for CPAP are barriers to placement on an inpatient psychiatry unit so it is medically necessary she be housed on the medical floor for psychiatric assessment and intervention. Chief Complaint "Good". Subjective Subjective Patient was seen & assessed and interval progress reviewed. She reports "good" mood. Plans to see her parents later today. She denies any medication issues. Remains focused on goal of going home. Psych liason spent time with patient and her parents this afternoon exploring additional coping skills she could use if she returns home to cope with anger/limits that cause frustration. They discussed using green/yellow/red system if using words becomes too difficult during times of heightened emotion and option to create a de-stimulation room/corner that Randi could use during times of elevated emotions/deysregulation. Physical Exam Psychiatric Orientation: alert Apperance: appropriately dressed and appropriately groomed Eye Contact: good eye contact Motor Behavior: + tremor (chin, they have discussed with neuro and psychiatrist (neither feel TD)) Speech: normal rate/rhythm/volume of speech Affect: + constricted affect Mood: no depressed mood and no anxious mood Thought Process: + concrete thought process Thought Content: reality based without delusions Suicidal Thoughts: denies suicidal thoughts Homicidal Thoughts: denies homicidal thoughts Hallucinations: no auditory hallucinations and no visual hallucinations Cognition: attention grossly intact and language grossly intact Estimated Intelligence: consistent with education level Insight: + limited insight Judgment: + limited judgement Vital Signs (Past 24 Hours) Last Vital Signs Temp 36.6 C 12/28/22 07:10 Pulse 88 12/28/22 07:10 Resp 18 12/28/22 07:10 BP 134/72 12/28/22 07:10 Pulse Ox 100 12/28/22 07:10 O2 Del Method Room Air 12/28/22 07:10 Results & Data ([facility]) Current Inpatient Medications Current Inpatient Medications: Current Inpatient Medications Acetaminophen (Acetaminophen 325 Mg Tab) 650 mg PO Q4H PRN PRN Reason: pain/fever Stop: 01/19/23 14:43 Last Admin: 12/27/22 20:15 Dose: 650 mg Al Hydrox/Mg Hydrox/Simethicone (Aluminum/Magnesium Susp 30 Ml Udc) 30 ml PO Q6H PRN PRN Reason: Dyspepsia Stop: 01/19/23 14:43 Amlodipine Besylate (Amlodipine Besylate 5 Mg Tab) 5 mg PO QAM [facility] Stop: 01/23/23 08:59 Last Admin: 12/28/22 08:19 Dose: 5 mg Benzonatate (Benzonatate 100 Mg Capsule) 100 mg PO TID PRN PRN Reason: Cough Stop: 01/21/23 20:59 Last Admin: 12/27/22 20:15 Dose: 100 mg Cetirizine HCl (Cetirizine Hcl 10 Mg Tablet) 10 mg PO DAILY [facility] Stop: 01/24/23 08:59 Last Admin: 12/28/22 08:19 Dose: 10 mg Clobazam (Clobazam) 1 each PO BID@1200,2100 [facility] Stop: 01/20/23 20:59 Last Admin: 12/27/22 20:15 Dose: 1 each Clonazepam (Clonazepam 0.25 Mg Tab) 0.25 mg PO AMHS [facility] Stop: 01/19/23 20:59 Last Admin: 12/28/22 08:17 Dose: 0.25 mg Divalproex Sodium (Divalproex Delay Release 250 Mg Tabec) 250 mg PO DAILY@1200 [facility] Stop: 01/20/23 11:59 Last Admin: 12/27/22 12:10 Dose: 250 mg Divalproex Sodium (Divalproex Delay Release 250 Mg Tabec) 500 mg PO BID [facility] Stop: 01/19/23 20:59 Last Admin: 12/28/22 08:18 Dose: 500 mg Famotidine (Famotidine 20 Mg Tab) 20 mg PO BID PRN PRN Reason: HEARTBURN/INDIGESTION Stop: 01/19/23 16:07 Fluticasone Propionate (Fluticasone Propionate Na Spr 16 Gm Btl) 1 sprays NA DAILY@1800 [facility] Stop: 01/27/23 17:59 Lacosamide (Lacosamide 50 Mg Tablet) 200 mg PO BID [facility] Stop: 01/19/23 20:59 Last Admin: 12/28/22 08:19 Dose: 200 mg Lorazepam (Lorazepam 0.5 Mg Tab) 0.5 mg PO DAILY PRN PRN Reason: Anxiety Stop: 01/19/23 16:07 Last Admin: 12/22/22 23:13 Dose: 0.5 mg Magnesium Hydroxide (Magnesium Hydroxide Susp 30 Ml Udc) 30 ml PO Q6H PRN PRN Reason: Constipation Stop: 01/19/23 14:43 Miscellaneous (Patient's Own Oral Contraceptive) 1 each PO DAILY [facility]; Protocol Stop: 01/20/23 12:59 Last Admin: 12/28/22 08:20 Dose: 1 each Ondansetron HCl (Ondansetron Inj 2 Mg/Ml 2 Ml Vial) 4 mg IV Q6H PRN PRN Reason: Nausea Stop: 01/19/23 14:43 Pantoprazole Sodium (Pantoprazole 40 Mg Tab) 40 mg PO HS [facility] Stop: 01/19/23 20:59 Last Admin: 12/27/22 20:16 Dose: 40 mg Polyethylene Glycol (Polyethylene (Miralax) 17 Gm Pack) 17 gm PO DAILY [facility] Stop: 01/25/23 08:59 Last Admin: 12/28/22 08:25 Dose: 17 gm Psyllium Hydrophilic Mucilloid (Psyllium Or Guar Gum Fiber Powder Packet) 1 pkt PO QAM [facility] Stop: 01/20/23 08:59 Last Admin: 12/28/22 08:28 Dose: Not Given Pyridoxine HCl (Pyridoxine Hcl 50 Mg Tab) 100 mg PO QAM [facility] Stop: 01/20/23 08:59 Last Admin: 12/28/22 08:19 Dose: 100 mg Risperidone (Risperidone 1 Mg Tablet) 1 mg PO TID [facility] Stop: 01/20/23 20:59 Last Admin: 12/28/22 08:18 Dose: 1 mg Sodium Chloride (Sodium Chloride 0.65% Na Soln 45 Ml ([place])) 2 sprays NA BID PRN PRN Reason: Congestion Stop: 01/24/23 08:57 Last Admin: 12/25/22 09:01 Dose: 2 sprays Zonisamide (Zonisamide 100 Mg Capsule) 100 mg PO AMHS [facility] Stop: 01/19/23 20:59 Last Admin: 12/28/22 08:17 Dose: 100 mg Post Discharge Appointments Primary Care Physician Name Of Family Doctor/PCP: Dr. Candice Rasmussen @[facility]
[2022-12-28] MEDS: ACETAMINOPHEN 325 MG TAB PO PRN ×2 (14:22→20:03)
[2022-12-28] MEDS: DOXYCYCLINE HYCLATE 100 MG CAP PO SCH (18:16)
[2022-12-28] MEDS: FLUTICASONE PROPIONATE NA SPR 16 GM BTL SCH (18:16)
[2022-12-28] MEDS: BENZONATATE 100 MG CAPSULE PO PRN (20:03)
[2022-12-28] MEDS: PANTOprazole 40 MG TAB PO SCH (20:04)
[2022-12-29] MEDS: DOXYCYCLINE HYCLATE 100 MG CAP PO SCH ×2 (05:44→18:10)
[2022-12-29] MEDS: DIVALPROEX DELAY RELEASE 250 MG TABEC PO SCH ×3 (08:59→21:43)
[2022-12-29] MEDS: POLYETHYLENE (MIRALAX) 17 GM PACK PO SCH (08:59)
[2022-12-29] MEDS: PSYLLIUM or GUAR GUM FIBER POWDER PACKET PO SCH (08:59)
[2022-12-29] MEDS: CETIRIZINE HCL 10 MG TABLET PO SCH (08:59)
[2022-12-29] MEDS: PATIENT'S OWN ORAL CONTRACEPTIVE PO SCH (09:00)
[2022-12-29] MEDS: PYRIDOXINE HCL 50 MG TAB PO SCH (09:00)
[2022-12-29] MEDS: ADVANCED PROBIOTIC 1250 MG CAPSULE PO SCH (09:00)
[2022-12-29] MEDS: risperiDONE 1 MG TABLET PO SCH ×3 (09:00→21:21)
[2022-12-29] MEDS: amLODIPine BESYLATE 5 MG TAB PO SCH (09:00)
[2022-12-29] MEDS: ZONISAMIDE 100 MG CAPSULE PO SCH ×2 (09:00→21:22)
[2022-12-29] MEDS: LACOSAMIDE 50 MG TABLET PO SCH ×2 (09:00→21:44)
[2022-12-29] MEDS: clonazePAM 0.25 MG TAB PO SCH ×2 (09:03→21:42)
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
[2022-12-29] MEDS: FLUTICASONE PROPIONATE NA SPR 16 GM BTL SCH (18:09)
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
--- NOTE | 2022-12-29 18:09 | Hospitalist Progress Note ---
Date of Service December 29, 2022 Assessment & Plan Admission and Anticipated Discharge Date Admission Date: December 20, 2022 Results & Data Results & Data Vital Signs (Past 12 Hours) Vital Signs Temp Pulse Resp BP Pulse Ox O2 Del Method 12/29/22 07:37 36.8 C 82 16 137/82 100 Room Air
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
[2022-12-29] MEDS: PANTOprazole 40 MG TAB PO SCH (21:21)
[2022-12-29] MEDS: ACETAMINOPHEN 325 MG TAB PO PRN (21:42)
[2022-12-30] MEDS: DOXYCYCLINE HYCLATE 100 MG CAP PO SCH ×2 (07:32→17:47)
[2022-12-30] MEDS: CETIRIZINE HCL 10 MG TABLET PO SCH (08:42)
[2022-12-30] MEDS: LACOSAMIDE 50 MG TABLET PO SCH ×2 (08:42→20:29)
[2022-12-30] MEDS: PYRIDOXINE HCL 50 MG TAB PO SCH (08:42)
[2022-12-30] MEDS: risperiDONE 1 MG TABLET PO SCH ×3 (08:42→20:30)
[2022-12-30] MEDS: amLODIPine BESYLATE 5 MG TAB PO SCH (08:42)
[2022-12-30] MEDS: PATIENT'S OWN ORAL CONTRACEPTIVE PO SCH (08:42)
[2022-12-30] MEDS: PSYLLIUM or GUAR GUM FIBER POWDER PACKET PO SCH (08:43)
[2022-12-30] MEDS: POLYETHYLENE (MIRALAX) 17 GM PACK PO SCH (08:43)
[2022-12-30] MEDS: ZONISAMIDE 100 MG CAPSULE PO SCH ×2 (08:43→20:29)
[2022-12-30] MEDS: DIVALPROEX DELAY RELEASE 250 MG TABEC PO SCH ×3 (08:43→20:30)
[2022-12-30] MEDS: ADVANCED PROBIOTIC 1250 MG CAPSULE PO SCH (08:43)
[2022-12-30] MEDS: clonazePAM 0.25 MG TAB PO SCH ×2 (08:47→20:28)
[2022-12-30] MEDS: BENZONATATE 100 MG CAPSULE PO PRN (15:33)
[2022-12-30] MEDS: FLUTICASONE PROPIONATE NA SPR 16 GM BTL SCH (17:48)
[2022-12-30] MEDS: ACETAMINOPHEN 325 MG TAB PO PRN (20:28)
[2022-12-30] MEDS: PANTOprazole 40 MG TAB PO SCH (20:30)
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
[2022-12-31] MEDS: DOXYCYCLINE HYCLATE 100 MG CAP PO SCH (05:46)
[2022-12-31] MEDS: PSYLLIUM or GUAR GUM FIBER POWDER PACKET PO SCH (08:31)
[2022-12-31] MEDS: POLYETHYLENE (MIRALAX) 17 GM PACK PO SCH (08:31)
[2022-12-31] MEDS: LACOSAMIDE 50 MG TABLET PO SCH (09:26)
[2022-12-31] MEDS: CETIRIZINE HCL 10 MG TABLET PO SCH (09:27)
[2022-12-31] MEDS: clonazePAM 0.25 MG TAB PO SCH (09:27)
[2022-12-31] MEDS: BENZONATATE 100 MG CAPSULE PO PRN (09:27)
[2022-12-31] MEDS: amLODIPine BESYLATE 5 MG TAB PO SCH (09:27)
[2022-12-31] MEDS: ADVANCED PROBIOTIC 1250 MG CAPSULE PO SCH (09:28)
[2022-12-31] MEDS: DIVALPROEX DELAY RELEASE 250 MG TABEC PO SCH (09:29)
[2022-12-31] MEDS: ZONISAMIDE 100 MG CAPSULE PO SCH (09:29)
[2022-12-31] MEDS: PYRIDOXINE HCL 50 MG TAB PO SCH (09:29)
[2022-12-31] MEDS: risperiDONE 1 MG TABLET PO SCH (09:29)
[2022-12-31] MEDS: PATIENT'S OWN ORAL CONTRACEPTIVE PO SCH (09:31)
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
== END 2022-12-31 12:50 | disposition home or self-care (01) | DRG 881 ==
LOC: ED 11:42 → SUATTDRO 14:44 → EDINP 14:44 → 3E 21:03